=== PATIENT | male | born 1940 | race Caucasian/White ===

== ENCOUNTER 2020-07-11 07:37 | Outpatient (REF) | payer MEDICARE, SELFPAY ==
[2020-07-11 09:19] LABS: Alanine Aminotransferase 31 U/L (0-40); Albumin Level 4.2 g/dL (3.5-5.0); Alkaline Phosphatase 56 U/L (39-117); Aspartate Amino Transferase 21 U/L (5-37); Bilirubin Direct 0.3 mg/dL (0.0-0.5); Bilirubin Total 0.8 mg/dL (0.0-1.0); Cholesterol 125 mg/dL; Glucose Fasting 142 mg/dL (60-99); HDL Cholesterol 47 mg/dL; LDL Cholesterol Calculated 56 mg/dl; Total Protein 7.2 g/dL (6.5-8.0); Triglycerides 110 mg/dL
[2020-07-11 09:28] LABS: Estimated Average Glucose 140 mg/dL; Hemoglobin A1c % 6.5 %
[2020-07-11 09:36] LABS: Reflex LDLD? No
== END 2020-07-11 07:38 | disposition home or self-care (01) ==
LOC: HO.LAB 07:37
PROVIDERS: Visit Provider Internal Medicine
DX: E78.00 Pure hypercholesterolemia, unspecified (principal); E11.9 Type 2 diabetes mellitus without complications
CPT/HCPCS: 36415; 80061; 80076; 82947; 83036

== ENCOUNTER 2021-01-16 10:32 | Outpatient (REF) | payer MEDICARE, SELFPAY ==
[2021-01-16 10:50] LABS: Estimated Average Glucose 131 mg/dL; Hemoglobin A1c % 6.2 %
[2021-01-16 11:11] LABS: Alanine Aminotransferase 21 U/L (0-40); Albumin Level 4.1 g/dL (3.5-5.0); Alkaline Phosphatase 54 U/L (39-117); Aspartate Amino Transferase 18 U/L (5-37); Bilirubin Direct 0.4 mg/dL (0.0-0.5); Cholesterol 110 mg/dL; Glucose Fasting 122 mg/dL (60-99); HDL Cholesterol 41 mg/dL; LDL Cholesterol Calculated 50 mg/dl; Triglycerides 96 mg/dL
[2021-01-16 11:29] LABS: Reflex LDLD? No
== END 2021-01-16 10:33 | disposition home or self-care (01) ==
LOC: HO.LNP 10:32
PROVIDERS: Visit Provider Internal Medicine
DX: E78.00 Pure hypercholesterolemia, unspecified (principal); E11.9 Type 2 diabetes mellitus without complications
CPT/HCPCS: 80061; 80076; 82947; 83036

== ENCOUNTER 2021-01-20 12:20 | Outpatient (REF) | payer MEDICARE, SELFPAY ==
[2021-01-20 12:25] LABS: MANUAL DIFF FLAG NO
[2021-01-20 12:33] LABS: Basophils Percent Auto 0.4 % (0-2); Eosinophils Absolute Auto 0.2 X10*3/uL (0.0-0.4); Eosinophils Percent Auto 2.7 % (0-4); Hematocrit 44.4 % (42-52); Hemoglobin 14.9 g/dl (14.0-18.0); Imm Gran Abs Auto 0.01 X10*3/uL (0.00-0.03); Imm Gran Pct Auto 0.2 % (0.0-0.4); Lymphocytes Absolute Auto 2.2 X10*3/uL (1.2-4.9); Lymphocytes Percent Auto 38.5 % (20-40); Mean Corpuscular HGB Conc 33.6 g/dl (31.0-36.0); Mean Corpuscular Hemoglobin 31.8 pg (27.0-33.0); Mean Corpuscular Volume 94.7 fL (80-98); Mean Platelet Volume 12.7 fL (9.4-12.4); Monocytes Absolute Auto 0.6 X10*3/uL (0.1-1.2); Monocytes Percent Auto 10.1 % (2-11); Neutrophils Absolute Auto 2.7 X10*3/uL (2.0-8.3); Neutrophils Percent Auto 48.1 % (45-73); Platelet Count 196 X10*3/uL (160-400); Red Blood Count 4.69 X10*6/uL (4.60-5.80); Red Cell Distribution Width 12.5 % (11.0-16.0); White Blood Count 5.6 X10*3/uL (4.8-10.8)
[2021-01-20 12:54] LABS: Glucose Urine UA NEG (NEG); Leukocyte Esterase Urine NEG (NEG); Nitrite Urine NEG (NEG); PH 5.5 (5.0-8.0); Specific Gravity - Urine >= 1.030 (1.005-1.025); Urine Blood NEG (NEG); Urine Ketones 5 MG/DL (NEG); Urine Protein NEG (NEG-TRACE)
[2021-01-20 13:11] LABS: Appearance Urine CLEAR; Color Urine YELLOW
[2021-01-20 13:12] LABS: Alanine Aminotransferase 23 U/L (0-40); Albumin Level 4.2 g/dL (3.5-5.0); Alkaline Phosphatase 57 U/L (39-117); Anion Gap 14 (12-20); Aspartate Amino Transferase 20 U/L (5-37); Blood Urea Nitrogen 18 mg/dL (9-16); Calcium 9.6 mg/dL (8.4-10.2); Carbon Dioxide 26 mmol/L (22-29); Chloride 105 mmol/L (96-108); Cholesterol 110 mg/dL; Estimated Glomerular Filt Rate > 60; Glucose Fasting 166 mg/dL (60-99); HDL Cholesterol 43 mg/dL; LDL Cholesterol Calculated 50 mg/dl; Sodium 141 mmol/L (135-145); Total Protein 7.4 g/dL (6.5-8.0); Triglycerides 88 mg/dL
[2021-01-20 13:13] LABS: RBC Urine 0 /HPF (0); WBC Urine 0 /HPF (0-4)
[2021-01-20 13:58] LABS: PSA,Total (Free>4and<10) 0.89 ng/mL (0.00-4.00)
[2021-01-20 14:43] LABS: Reflex LDLD? No
== END 2021-01-20 12:21 | disposition home or self-care (01) ==
LOC: HO.LNP 12:20
PROVIDERS: Visit Provider Internal Medicine
DX: Z12.5 Encounter for screening for malignant neoplasm of prostate (principal); E11.9 Type 2 diabetes mellitus without complications; E78.00 Pure hypercholesterolemia, unspecified; M10.071 Idiopathic gout, right ankle and foot; N52.9 Male erectile dysfunction, unspecified; N40.0 Benign prostatic hyperplasia without lower urinary tract symptoms; C44.41 Basal cell carcinoma of skin of scalp and neck
CPT/HCPCS: 80053; 80061; 81001; 82043; 84153; 85025

== ENCOUNTER 2021-07-21 10:19 | Outpatient (REF) | payer MEDICARE, SELFPAY ==
[2021-07-21 10:43] LABS: Estimated Average Glucose 137 mg/dL; Hemoglobin A1c % 6.4 %
[2021-07-21 11:14] LABS: Alanine Aminotransferase 27 U/L (0-40); Albumin Level 4.2 g/dL (3.5-5.0); Alkaline Phosphatase 59 U/L (39-117); Aspartate Amino Transferase 20 U/L (5-37); Bilirubin Direct 0.3 mg/dL (0.0-0.5); Bilirubin Total 0.6 mg/dL (0.0-1.0); Cholesterol 110 mg/dL; HDL Cholesterol 41 mg/dL; LDL Cholesterol Calculated 51 mg/dl; Total Protein 7.4 g/dL (6.5-8.0); Triglycerides 90 mg/dL
[2021-07-21 11:24] LABS: Creatinine Urine 133.41 mg/dL; Microalbum/Creatinine Ratio Ur 6.7 ug/mg cr
[2021-07-21 11:53] LABS: Reflex LDLD? No
== END 2021-07-21 10:20 | disposition home or self-care (01) ==
LOC: HO.LNP 10:19
PROVIDERS: Visit Provider Internal Medicine
DX: E11.9 Type 2 diabetes mellitus without complications (principal); E78.00 Pure hypercholesterolemia, unspecified
CPT/HCPCS: 80061; 80076; 82043; 83036

== ENCOUNTER 2022-01-26 11:03 | Outpatient (REF) | payer MEDICARE, SELFPAY ==
[2022-01-26 11:06] LABS: MANUAL DIFF FLAG NO
[2022-01-26 11:15] LABS: Basophils Percent Auto 0.3 % (0-2); Eosinophils Absolute Auto 0.1 X10*3/uL (0.0-0.4); Eosinophils Percent Auto 1.5 % (0-4); Hematocrit 42.5 % (42.0-52.0); Hemoglobin 14.2 g/dl (14.0-18.0); Imm Gran Abs Auto 0.02 X10*3/uL (0.00-0.03); Imm Gran Pct Auto 0.3 % (0.0-0.4); Lymphocytes Absolute Auto 2.9 X10*3/uL (1.2-4.9); Lymphocytes Percent Auto 39.5 % (20-40); Mean Corpuscular HGB Conc 33.4 g/dl (31.0-36.0); Mean Corpuscular Hemoglobin 31.8 pg (27.0-33.0); Mean Corpuscular Volume 95.1 fL (80.0-98.0); Mean Platelet Volume 11.6 fL (9.4-12.4); Monocytes Absolute Auto 0.8 X10*3/uL (0.1-1.2); Monocytes Percent Auto 11.3 % (2-11); Neutrophils Absolute Auto 3.5 x10*3/uL (2.0-8.3); Neutrophils Percent Auto 47.1 % (45-73); Platelet Count 219 X10*3/uL (160-400); Red Blood Count 4.47 X10*6/uL (4.60-5.80); Red Cell Distribution Width 12.8 % (11.0-16.0); White Blood Count 7.4 X10*3/uL (4.8-10.8)
[2022-01-26 11:24] LABS: Appearance Urine CLEAR; Color Urine YELLOW; Glucose Urine UA NEG (NEG); Leukocyte Esterase Urine NEG (NEG); Nitrite Urine NEG (NEG); PH 5.5 (5.0-8.0); Specific Gravity - Urine 1.025 (1.005-1.025); Urine Blood NEG (NEG); Urine Ketones NEG (NEG); Urine Protein NEG (NEG-TRACE)
[2022-01-26 11:27] LABS: Estimated Average Glucose 126 mg/dL
[2022-01-26 11:48] LABS: Creatinine Urine 134.56 mg/dL; Microalbum/Creatinine Ratio Ur 8.9 ug/mg cr
[2022-01-26 11:53] LABS: Alanine Aminotransferase 26 U/L (0-40); Albumin Level 3.9 g/dL (3.5-5.0); Alkaline Phosphatase 71 U/L (39-117); Anion Gap 15 (12-20); Aspartate Amino Transferase 23 U/L (5-37); Blood Urea Nitrogen 20 mg/dL (9-16); Calcium 9.3 mg/dL (8.4-10.2); Carbon Dioxide 25 mmol/L (22-29); Chloride 104 mmol/L (96-108); Cholesterol 97 mg/dL; Estimated Glomerular Filt Rate > 60; Glucose Fasting 115 mg/dL (60-99); HDL Cholesterol 35 mg/dL; LDL Cholesterol Calculated 45 mg/dl; Potassium 4.3 mmol/L (3.3-5.1); Sodium 140 mmol/L (135-145); Total Protein 7.2 g/dL (6.5-8.0); Triglycerides 88 mg/dL
[2022-01-26 12:42] LABS: Mucus Urine 2+ /LPF; RBC Urine 0 /HPF (0); WBC Urine 0 /HPF (0-4)
== END 2022-01-26 11:04 | disposition home or self-care (01) ==
LOC: HO.LNP 11:03
PROVIDERS: Visit Provider Internal Medicine
DX: Z12.5 Encounter for screening for malignant neoplasm of prostate (principal); E11.9 Type 2 diabetes mellitus without complications; E78.00 Pure hypercholesterolemia, unspecified; N40.0 Benign prostatic hyperplasia without lower urinary tract symptoms
CPT/HCPCS: 80053; 80061; 81001; 82043; 83036; 84153; 85025

== ENCOUNTER 2022-08-02 11:22 | Outpatient (REF) | payer MEDICARE, SELFPAY ==
[2022-08-02 12:01] LABS: Estimated Average Glucose 143 mg/dL; Hemoglobin A1c % 6.6 %
[2022-08-02 12:03] LABS: Alanine Aminotransferase 29 U/L (0-40); Albumin Level 4.1 g/dL (3.5-5.0); Alkaline Phosphatase 64 U/L (39-117); Aspartate Amino Transferase 20 U/L (5-37); Bilirubin Direct 0.3 mg/dL (0.0-0.5); Bilirubin Total 0.8 mg/dL (0.0-1.0); Cholesterol 117 mg/dL; Glucose Fasting 151 mg/dL (60-99); HDL Cholesterol 38 mg/dL; LDL Cholesterol Calculated 61 mg/dl; Total Protein 7.2 g/dL (6.5-8.0); Triglycerides 92 mg/dL
[2022-08-02 13:51] LABS: Reflex LDLD? No
== END 2022-08-02 11:23 | disposition home or self-care (01) ==
LOC: HO.LNP 11:22
PROVIDERS: Visit Provider Internal Medicine
DX: E78.00 Pure hypercholesterolemia, unspecified (principal); E11.9 Type 2 diabetes mellitus without complications
CPT/HCPCS: 80061; 80076; 82947; 83036

== ENCOUNTER 2023-01-31 10:50 | Outpatient (REF) | payer MEDICARE, SELFPAY ==
[2023-01-31 10:55] LABS: MANUAL DIFF FLAG NO
[2023-01-31 12:20] LABS: Basophils Percent Auto 0.5 % (0-2); Eosinophils Absolute Auto 0.1 X10*3/uL (0.0-0.4); Eosinophils Percent Auto 1.6 % (0-4); Hematocrit 44.2 % (42.0-52.0); Hemoglobin 14.8 g/dl (14.0-18.0); Imm Gran Abs Auto 0.02 X10*3/uL (0.00-0.03); Imm Gran Pct Auto 0.3 % (0.0-0.4); Lymphocytes Absolute Auto 2.8 X10*3/uL (1.2-4.9); Lymphocytes Percent Auto 36.8 % (20-40); Mean Corpuscular HGB Conc 33.5 g/dl (31.0-36.0); Mean Corpuscular Hemoglobin 31.7 pg (27.0-33.0); Mean Corpuscular Volume 94.6 fL (80.0-98.0); Mean Platelet Volume 12.6 fL (9.4-12.4); Monocytes Absolute Auto 0.9 X10*3/uL (0.1-1.2); Monocytes Percent Auto 11.1 % (2-11); Neutrophils Absolute Auto 3.8 x10*3/uL (2.0-8.3); Neutrophils Percent Auto 49.7 % (45-73); Platelet Count 188 X10*3/uL (160-400); Red Blood Count 4.67 X10*6/uL (4.60-5.80); Red Cell Distribution Width 12.9 % (11.0-16.0); White Blood Count 7.7 X10*3/uL (4.8-10.8)
[2023-01-31 13:30] LABS: Estimated Average Glucose 123 mg/dL; Hemoglobin A1c % 5.9 %
[2023-01-31 13:34] LABS: Alanine Aminotransferase 28 U/L (0-40); Alkaline Phosphatase 61 U/L (39-117); Anion Gap 15 (12-20); Appearance Urine Clear; Aspartate Amino Transferase 24 U/L (5-37); Bilirubin Total 0.8 mg/dL (0.0-1.0); Blood Urea Nitrogen 17 mg/dL (9-16); Calcium 9.6 mg/dL (8.4-10.2); Carbon Dioxide 23 mmol/L (22-29); Chloride 106 mmol/L (96-108); Cholesterol 101 mg/dL; Color Urine Yellow; Estimated Glomerular Filt Rate > 60; Glucose Fasting 109 mg/dL (60-99); Glucose Urine UA Negative (Negative); HDL Cholesterol 43 mg/dL; LDL Cholesterol Calculated 42 mg/dl; Leukocyte Esterase Urine Negative (Negative); Nitrite Urine Negative (Negative); PH 5.5 (5.0-9.0); Potassium 4.3 mmol/L (3.3-5.1); Sodium 140 mmol/L (135-145); Specific Gravity - Urine 1.015 (1.005-1.025); Total Protein 7.3 g/dL (6.5-8.0); Triglycerides 82 mg/dL; Urine Blood Negative (Negative); Urine Ketones Negative (Negative); Urine Protein Negative (Neg-Trace)
[2023-01-31 13:39] LABS: Bacteria Urine None Seen (None Seen); Hyaline Casts Urine 0-2 /LPF (0-2); RBC Urine 0-2 /HPF (0-2); Squamous Epithelial Cell Urine 0-2 /HPF (0-2); WBC Urine 0-5 /HPF (0-5)
[2023-01-31 13:48] LABS: PSA,Total (Free>4and<10) 0.96 ng/mL (0.00-4.00)
[2023-01-31 14:41] LABS: Creatinine Urine 80.76 mg/dL; Microalbum/Creatinine Ratio Ur 11.1 ug/mg cr
== END 2023-01-31 10:51 | disposition home or self-care (01) ==
LOC: HO.LNP 10:50
PROVIDERS: Visit Provider Internal Medicine
DX: Z12.5 Encounter for screening for malignant neoplasm of prostate (principal); N40.0 Benign prostatic hyperplasia without lower urinary tract symptoms; E11.9 Type 2 diabetes mellitus without complications; E78.00 Pure hypercholesterolemia, unspecified
CPT/HCPCS: 80053; 80061; 81001; 82043; 83036; 84153; 85025

== ENCOUNTER 2023-07-30 12:29 | Outpatient (REF) | payer MEDICARE, SELFPAY ==
[2023-07-30 12:55] LABS: Estimated Average Glucose 134 mg/dL; Hemoglobin A1c % 6.3 % (<6.0)
[2023-07-30 13:26] LABS: Alanine Aminotransferase 23 U/L (0-40); Alkaline Phosphatase 62 U/L (39-117); Aspartate Amino Transferase 19 U/L (5-37); Bilirubin Direct 0.3 mg/dL (0.0-0.5); Bilirubin Total 0.8 mg/dL (0.0-1.0); Cholesterol 107 mg/dL (<200); Glucose Fasting 140 mg/dL (60-99); HDL Cholesterol 42 mg/dL (>40); LDL Cholesterol Calculated 48 mg/dL (<100); Total Protein 7.5 g/dL (6.5-8.0); Triglycerides 86 mg/dL (<150)
[2023-07-30 15:32] LABS: Reflex LDLD? No
== END 2023-07-30 12:30 | disposition home or self-care (01) ==
LOC: HO.LNP 12:29
PROVIDERS: Visit Provider Internal Medicine
DX: E11.9 Type 2 diabetes mellitus without complications (principal); E78.00 Pure hypercholesterolemia, unspecified
CPT/HCPCS: 80061; 80076; 82947; 83036

== ENCOUNTER 2024-01-28 10:48 | Outpatient (AMB) | payer MEDICARE, SELFPAY ==
--- NOTE | 2024-01-28 10:55 | AM.OFFWIN_ITS ---
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 Foot ?bite or Gout Intake Note: pt is here for left foot bite or possible gout Patient Tobacco Use Status: Never used Tobacco Allergies No Known Allergies Allergy (Verified 01/28/24 10:55) Do you need a note to return to daycare/school/sports/work: Yes HPI HPI Comments History of Present Illness Details He presents with L foot pain Hx of gout in toe in past but this feels different 5pm last night + sharp pain to to ankle Doesn't hurt when he stands but after a minute or two it hurts No redness/fever/chills He said he can move foot and ankle without issue but pain comes randomly 0/10 currently Pain comes when resting and when moving; non-specific Denies trauma or injury Denies bite mims Took Ibuprofen this am which helped [facility] Social History Patient Tobacco Use Status: Never used Tobacco Review of Systems Const Denies chills and Denies fever(s) Musc Reports arthralgias (lateral L ankle pain intermittent), Denies joint swelling, Denies numbness, Denies stiffness and Denies tingling Skin/Breast Denies rash, Denies skin pain and Denies wounds Neuro Denies numbness, Denies tingling and Denies paresthesias Physical Exam Vital Signs: Last Vital Signs Temp 98.2 F 01/28/24 11:02 Pulse 72 01/28/24 11:02 BP 150/78 H 01/28/24 11:02 Pulse Ox 97 01/28/24 11:02 BMI result Body Mass Index 25.1 General: Non-toxic, NAD. Speaking full sentences. Skin: Warm dry throughout. L ankle and LLE without erythema, edema, ecchymosis. No FB on L plantar aspect foot. No lateral ankle edema. No calf edema or tenderness Respiratory: No respiratory distress or stridor Cardiac: RRR. DP pulse intact. MSK: No bony tenderness illicited upon palpation of LLE at medial or lateral epicondyle, metatarsal bones, digits on foot or plantar fascia. No pain with ROM L ankle or movment of didigts L foot. Full ROM extremities. Neurology: A/O. No aphasia or facial droop. Gait without abnormality Psych: Good mood and affect Assessment & Plan Assessment & Plan (1) Ankle pain: Code(s): M25.579 - Pain in unspecified ankle and joints of unspecified foot Qualifiers: Chronicity: acute Laterality: left Qualified Code(s): M25.572 - Pain in left ankle and joints of left foot Plan: Patient seen and evaluated. No erythena or joint edema No hx of trauma Xray L ankle for ? arthritis: i viewed xray but saw no abnormality Pt states symptoms consistent with gout which he has taken prednisone in the past Discussed prednisone use and s/s. He was given julian bandae and told to elevate ice Predniosne only if edema/erythema/persistent pain F/U with PCP next week No concern gout of septic joint at this time Patient gave verbal understanding and had no additional questions or concerns at time of discharge All questions answered Orders: Orders XR ankle LT min 3V Today M25.579 - Pain in unspecified ankle and joints of unspecified foot Medications: New prednisone Take at onset of pain. Take with food. Avoid ibuprofen/Motrin/alcohol when taking medicine 40 mg (2 x 20 mg) PO DAILY 8 tabs 0RF Coding Level of Care Code New Pt Level 3 (66199) Diagnoses Acute left ankle pain M25.572 Chronicity: acute Laterality: left
[2024-01-28 11:02] VITALS: BP 150/78; PULSE 72; TEMP 36.8; O2SAT 97; BMI 25.1
== END 2024-01-28 11:34 | disposition home or self-care (01) ==
PROVIDERS: PCP Internal Medicine; Visit Provider Physician Assistant
DX: M25.572 Pain in left ankle and joints of left foot (principal)
CPT/HCPCS: 99203

== ENCOUNTER 2024-01-28 11:09 | Outpatient (REF) | payer MEDICARE, SELFPAY ==
--- NOTE | ~2024-01-28 | XR_ITS ---
EXAMINATION: XR ANKLE, LEFT CLINICAL INFORMATION: Pain COMPARISON: None available. TECHNIQUE: AP, lateral, and mortise views of the left ankle. FINDINGS: Mortise intact. No fracture, dislocation or destructive process. Minimal chronic fragmentation about the medial malleolus. Vascular calcifications are present. XR/XR ankle LT min 3V IMPRESSION: No acute findings.
== END 2024-01-28 11:10 | disposition home or self-care (01) ==
LOC: HO.HMGCX 11:09
PROVIDERS: PCP Internal Medicine; Visit Provider Physician Assistant
DX: M25.572 Pain in left ankle and joints of left foot (principal)
CPT/HCPCS: 73610

== ENCOUNTER 2024-01-30 11:21 | Outpatient (REF) | payer MEDICARE, SELFPAY ==
[2024-01-30 11:28] LABS: MANUAL DIFF FLAG NO
[2024-01-30 12:03] LABS: Basophils Percent Auto 0.2 % (0-2); Hematocrit 41.9 % (42.0-52.0); Hemoglobin 14.6 g/dl (14.0-18.0); Imm Gran Abs Auto 0.06 X10*3/uL (0.00-0.03); Imm Gran Pct Auto 0.5 % (0.0-0.4); Lymphocytes Absolute Auto 2.1 X10*3/uL (1.2-4.9); Lymphocytes Percent Auto 16.1 % (20-40); Mean Corpuscular HGB Conc 34.8 g/dl (31.0-36.0); Mean Corpuscular Hemoglobin 32.7 pg (27.0-33.0); Mean Corpuscular Volume 93.9 fL (80.0-98.0); Mean Platelet Volume 12.7 fL (9.4-12.4); Monocytes Absolute Auto 0.9 X10*3/uL (0.1-1.2); Monocytes Percent Auto 6.9 % (2-11); Neutrophils Absolute Auto 9.8 x10*3/uL (2.0-8.3); Neutrophils Percent Auto 76.3 % (45-73); Platelet Count 204 X10*3/uL (160-400); Red Blood Count 4.46 X10*6/uL (4.60-5.80); White Blood Count 12.9 X10*3/uL (4.8-10.8)
[2024-01-30 12:19] LABS: Appearance Urine Clear; Color Urine Yellow; Glucose Urine UA >=1000 mg/dL (Negative); Leukocyte Esterase Urine Negative (Negative); Nitrite Urine Negative (Negative); PH 5.5 (5.0-9.0); Specific Gravity - Urine 1.025 (1.005-1.025); UMIC TRIGGER UACC YES; Urine Blood Negative (Negative); Urine Ketones Negative (Negative); Urine Protein Trace mg/dL (Neg-Trace)
[2024-01-30 12:21] LABS: Alanine Aminotransferase 23 U/L (0-40); Albumin Level 4.2 g/dL (3.5-5.0); Alkaline Phosphatase 77 U/L (39-117); Anion Gap 15 (12-20); Aspartate Amino Transferase 17 U/L (5-37); Bilirubin Total 0.5 mg/dL (0.0-1.0); Blood Urea Nitrogen 23 mg/dL (9-16); Calcium 10.3 mg/dL (8.4-10.2); Carbon Dioxide 21 mmol/L (22-29); Chloride 109 mmol/L (96-108); Cholesterol 117 mg/dL (<200); Estimated Average Glucose 134 mg/dL; Estimated Glomerular Filt Rate 58; Glucose Fasting 234 mg/dL (60-99); HDL Cholesterol 51 mg/dL (>40); Hemoglobin A1c % 6.3 % (<6.0); LDL Cholesterol Calculated 55 mg/dL (<100); Potassium 4.4 mmol/L (3.3-5.1); Sodium 141 mmol/L (135-145); Total Protein 7.5 g/dL (6.5-8.0); Triglycerides 59 mg/dL (<150)
[2024-01-30 12:26] LABS: Bacteria Urine None Seen (None Seen); Hyaline Casts Urine 0-2 /LPF (0-2); RBC Urine 0-2 /HPF (0-2); Squamous Epithelial Cell Urine 0-2 /HPF (0-2); WBC Urine 0-5 /HPF (0-5)
[2024-01-30 12:40] LABS: Creatinine Urine 142.97 mg/dL; Microalbum/Creatinine Ratio Ur 14.6 ug/mg cr (<30)
== END 2024-01-30 11:22 | disposition home or self-care (01) ==
LOC: HO.LNP 11:21
PROVIDERS: Visit Provider Internal Medicine
DX: E78.00 Pure hypercholesterolemia, unspecified (principal); E11.9 Type 2 diabetes mellitus without complications; Z12.5 Encounter for screening for malignant neoplasm of prostate
CPT/HCPCS: 80053; 80061; 81001; 82043; 82570; 83036; 84153; 85025

== ENCOUNTER 2024-03-23 10:42 | Outpatient (REF) | payer MEDICARE, SELFPAY ==
[2024-03-23 11:37] LABS: Blood Urea Nitrogen 17 mg/dL (9-16); Calcium 9.7 mg/dL (8.4-10.2); Estimated Glomerular Filt Rate 60
== END 2024-03-23 10:43 | disposition home or self-care (01) ==
LOC: HO.LNP 10:42
PROVIDERS: Visit Provider Internal Medicine
DX: R79.9 Abnormal finding of blood chemistry, unspecified (principal); E83.52 Hypercalcemia
CPT/HCPCS: 82310; 82565; 84520

== ENCOUNTER 2024-07-01 02:02 | Emergency (ER) | payer MEDICARE, SELFPAY ==
--- NOTE | ~2024-07-01 | XR_ITS ---
EXAMINATION: XR ABDOMEN KUB CLINICAL INDICATION: fecal impaction COMPARISON: None available. TECHNIQUE: AP view of the abdomen. FINDINGS: The bowel gas pattern is normal with no evidence of ileus or obstruction. Retained stool throughout the colon including the rectum with rectal expansion up to 6.7 cm. No unusual soft tissue calcifications are noted. The bones are unremarkable. XR/XR KUB IMPRESSION: 1. Nonobstructive bowel gas pattern. 2. Retained stool throughout the colon including the rectum with rectal expansion up to 6.7 cm. Electronically signed by: Tevin Hayden MD 07/01/2024 02:59 AM EST
[2024-07-01 02:08] VITALS: BP 149/63; PULSE 102; RESP 14; TEMP 36.4; O2SAT 97; BMI 24.7
--- NOTE | 2024-07-01 02:27 | ED_ITS ---
HPI - General Adult General Chief complaint: General Medical Stated complaint: ? bowel obstruction Time Seen by Provider: 07/01/24 02:27 Source: patient Mode of arrival: ambulatory Limitations: no limitations History of Present Illness ED Provider: HPI narrative: Patient's history of hemorrhoids been constipated for 2 days feels like stool stuck in the rectum no nausea no vomiting patient has tried senna without much relief no nausea no vomiting no abdominal distention Related Data Home Medications ?Medication ?Instructions ?Recorded ?Confirmed atorvastatin 20 mg tablet 20 mg PO DAILY 01/28/24 metformin 500 mg tablet 1,000 mg PO BID 01/28/24 Previous Rx's ?Medication ?Instructions ?Recorded prednisone 20 mg tablet 40 mg (2 x 20 mg) PO DAILY #8 tabs 01/28/24 polyethylene glycol 3350 17 17 g PO DAILY #510 grams 07/01/24 gram/dose oral powder (Miralax) Allergies Allergy/AdvReac Type Severity Reaction Status Date / Time No Known Allergies Allergy Verified 07/01/24 02:12 Review of Systems Review of Systems: Yes all other systems are reviewed and are negative [facility] Social History Social History Patient Tobacco Use Status: Never used Tobacco Advance Directives: No Do you have a plan to hurt others: No Plan Physical Exam ED Vital Signs: Vital Signs - 24 hr 07/01/24 02:08 Temperature 97.6 F Pulse Rate 102 H Respiratory Rate 14 Blood Pressure 149/63 H Pulse Oximetry 97 Oxygen Delivery Method Room Air BMI result Body Mass Index 24.7 Appearance: Alert. Oriented X3. No acute distress. Eyes: PERRLA, No Nystagmus ENT: Pharynx normal. Oral Mucosa moist Neck: Normal inspection. Neck supple. CVS: Normal heart rate and rhythm. Pulses normal. Respiratory: No respiratory distress. Equal air entry bilateral, no wheezing/rales/rhonchi Abdomen: Soft and nontender. Hemorrhoids nonbleeding, soft stool in the rectum Bowel sounds are present, no mass palpable, no CVA tenderness Skin: Skin warm and dry. Normal skin color. Normal skin turgor. Extremities: No lower extremity edema. No calf tenderness Neuro: Oriented X 3. No motor deficit. Medications Administered Discontinued Medications Generic Name Dose Route Start Last Admin Trade Name Freq PRN Reason Stop Dose Admin Lidocaine HCl 10 ml 12/25/24 03:03 07/01/24 03:07 Lidocaine Hcl 2 % Urojet 10 Ml Jel.Pf.Poonam TOPICAL 07/01/24 03:04 10 ml ONCE ONE Administration Magnesium Hydroxide 30 ml 07/01/24 03:22 07/01/24 03:32 Milk Of Magnesia 30 Ml Oral.Susp PO 07/01/24 03:23 30 ml ONCE ONE Administration Sodium Biphosphate/Sodium Phosphate 133 ml 07/01/24 03:22 07/01/24 03:32 Sodium Phosphate,[place]-Dibasic 133 Ml Enema [place] 07/01/24 03:23 133 ml ONCE ONE Administration Medical Decision Making Medical Decision Making MDM Narrative: Patient's constipation hemorrhoids after manual disimpaction and Fleet enema patient has had a bowel movement and feeling much better will discharge patient home on MiraLax Independent Interpretation I performed an independent interpretation of an: Plain X-Ray Radiology Impression Discussion of test interpretation with radiology: I have reviewed the radiologist's reading. Radiologist Impression: Gómez Pascual??83??M??1940 ? Allergy/Adv: No Known Allergies Close KUB X-Ray (Signed) Tevin Hayden - 07/01/24 Ankle X-Ray (Signed) Schuyler Coburn - 01/28/24 Launch?Image [place] [address] XRay Report Signed Patient: Gómez Pascual MR#: [id number] : 1940 Acct:[id number] Age/Sex: 83 / M ADM Date: 07/01/24 Loc: HO.ED Attending Dr: Ordering Physician: Juan M Cooley MD Date of Service: 07/01/24 Procedure(s): XR KUB Accession Number(s): [id number] cc: Edi Ly MD; Juan M Cooley MD~ EXAMINATION: XR ABDOMEN KUB CLINICAL INDICATION: fecal impaction COMPARISON: None available. TECHNIQUE: AP view of the abdomen. FINDINGS: The bowel gas pattern is normal with no evidence of ileus or obstruction. Retained stool throughout the colon including the rectum with rectal expansion up to 6.7 cm. No unusual soft tissue calcifications are noted. The bones are unremarkable. XR/XR KUB IMPRESSION: 1. Nonobstructive bowel gas pattern. 2. Retained stool throughout the colon including the rectum with rectal expansion up to 6.7 cm. Electronically signed by: Tevin Hayden MD 07/01/2024 02:59 AM EST Discharge Plan Discharge Clinical Impression: Constipation Patient Disposition: Home, Self-Care Instructions: Constipation (DC) Additional Instructions: Drink plenty of fluids MiraLax daily Follow with your PCP Prescriptions: New polyethylene glycol 3350 [Miralax] 17 gram/dose powder 17 g PO DAILY Qty: 510 0RF No Action atorvastatin 20 mg tablet 20 mg PO DAILY metformin 500 mg tablet 1,000 mg PO BID prednisone 20 mg tablet 40 mg PO DAILY Qty: 8 0RF Rx Instructions: Take at onset of pain. Take with food. Avoid ibuprofen/Motrin/alcohol when taking medicine Print Language: Maltese
[2024-07-01] MEDS: Lidocaine HCl 2 % Urojet 10 ML JEL.PF.APP TOPICAL (03:07)
[2024-07-01] MEDS: Milk of Magnesia 30 ML ORAL.SUSP PO (03:32)
[2024-07-01] MEDS: Sodium Phosphate,Mono-Dibasic 133 ML ENEMA PR (03:32)
[2024-07-01 04:06] VITALS: BP 157/92; PULSE 111; RESP 18; TEMP 36.8; O2SAT 94
[2024-07-01 04:11] VITALS: BP 157/92; PULSE 103; RESP 18; TEMP 36.8; O2SAT 94
== END 2024-07-01 04:12 | disposition home or self-care (01) ==
PROVIDERS: Emergency Provider Internal Medicine; PCP Internal Medicine
DX: K59.00 Constipation, unspecified (principal); Z79.899 Other long term (current) drug therapy
CPT/HCPCS: 74018; 99283

== ENCOUNTER 2024-08-21 10:09 | Outpatient (REF) | payer MEDICARE, SELFPAY ==
--- OUTSIDE RECORDS SUMMARY | 2024-08-21 11:02 | XMS_ITS ---
[facility] jeremy Paul Address [address] [place] [address] Care Team Providers Care Maintenance Technician 2Nd Shift Name Role Phone Malachi DELANEY, Edi Primary Care Provider Regino Sun Unavailable [phone] Allergies No Known Allergies REASON FOR VISIT Avila brown, Pcp- 08/31 Medications Medication SIG (Take, Route, Frequency, Duration) Notes Start Date End Date Status Baby Aspirin Active Sulfamethoxazole-TMP DS 800-160 MG Oral for 10 Not-Taking Keflex 500 500 MG 1 capsule Orally jerome ry 12 hrs for 10 days 01/30/2023 Not-Taking metFORMIN HCl 500 MG 1 tablet with a marcel l Orally twice a day Active Atorvastatin Calcium 20 MG Orally Active LamISIL AT 1 % 1 application to affected area Externally Twice a day to affected areas on feet for 30 days 11/07/2015 Not-Taking predniSONE 10 MG Oral for 12 N ot-Taking Cephalexin 500 MG 1 tablet Orally Twic e a day for 10 day(s) Not-Taking Social History Tobacco Use: Social History Observation Description Date Details (start date - stop date) Never Smoker NA - NA Tobacco Use/Smoking Question Answer Notes Are you a: nonsmoker Additional Findings: Tobacco Non-User Current no n-smoker Alcohol Screen Question Answer Notes Did you have a drink containing alcohol in the p ast year? No Points 0 Interpretation Negative Tobacco use other than smoking: Question Answer Notes Are you an other tobacco user? No Vital Signs Height 5 ft 10 in in 10/17/2023 Weight 180 lbs 10/17/2023 BMI 25.82 kg/m2 10/17/2023 Encounters Encounter Location Date Provider Diagnosis [facility] [address] [address] [place] [address] 10/17/2023 Regino Murphy Ingrowing nail L60.0 Assessments Encounter Date Diagnosis (ICD Code) Assessment Notes Treatment Notes Treatment Clinical Notes Section Notes 10/17/2023 Ingrowing nail (ICD-10 - L60.0) Plan Of Treatment Next Appt Details Follow Up: 2 Weeks, Reason: Procedure Notes * Category Sub-Category Detail Notes Matricectomy (OP NOTE) Consent The patie nt was brought to the examination room and placed on the table in a supine position. The pre/edi/postoperative course, risks, complications and alternatives were discussed, understood and accepted by the patient. No guarantees were given regarding the surgical outcome Procedure A digital prep with alcohol or betadine was performed. 3cc of 2% Xylocaine pl. local anesthetic was administered to the toe via digital block utilizing aseptic technique. A digital touriquet was applied. The affected toenail portion was undermined, incised and resected to the eponychium and matrix. It was noted to be significantly incurvated and hypertrophied. The nailbed and matrix were curetted and the nail groove, bed and matrix were cauterized with Phenol, 3 applications of 30 seconds each from a cotton tip applicator, no underling bone was identified. The surrounding skin was protected from the Phenol with Bacitracin ointment. The tourniquet was released and capillary fill time was intact to the digit. A sterile Bacitracin dressing was applied Disposition Disposition: The pat ient tolerated the procedure and anesthesia well and left in good condition, alert, oriented and stable in no acute distress. Local wound care instructions were dispensed. There were no complications and the prognosis is favorable Location Medial nail border, TA Progress Notes * Gómez PASCUAL MDOB:1940 (83 yo M)Acc No.[id number]:10/17/2023 Progress Note Patient:?Gómez Pascual Rubens Provider:?Regino Murphy DPM :1940???Age:83 Y???Sex:Male Garry e:10/17/2023 Address:[address] [place], [place] [id number] Pcp:Edi Ly MD Subjective: * Chief Complaints: * ???Avila nailp- 08/31 * ROS:?General/Constitutional:?Nausea?denies.?Vomiting?denies.?Hunger Thirst?denies.?Loss appetite?denies.?Chills?denies.?Fatigue?denies.?Fever?denies.?Night Sweats?denies.?Unexplained weight loss?denies.?Unexplained weight gain?denies.?HEENTM:?Dentures?denies.?Dizziness?denies.?Glasses/contacts?admits.?Retinopathy?de nies.?Blurred/double vision?denies.?TMJ?denies.?Discharge/drainage?denies.?Implants?denies.?Sore throat?denies.?Dental implants?denies.?Hard of hearing ?denies.?Difficulty chewing/swallowing/speaking?denies.?Nose bleeds?denies.?Sore mouth?denies.?Respiratory:?On Oxygen?denies.?Pneumonia/pleurisy?denies.?Bronchitis?denies.?Emphysema?denies.?C oughing?denies.?Cough blood?denies.?Shortness of breath?denies.?Wheezing?denies.?Cardiovascular:?Pacemaker?denies.?MVP?denies.?WPW?denies.?CHF?denies.?Heart attack?denies.?Septal defect?denies.?Rapid beat?denies.?Chest pain ?denies.?Atrial Fib.?denies.?Murmur/Palpitations?denies.?Gastrointestinal:?Hemorrhoids?denies.?Stomach/Abdominal pain?denies.?Dark blood stool?denies.?Irritable bowel ?denies.?Constipation?denies.?Diarrhea?denies.?Hematology:?Swelling?denies.?Clots?denies.?Varicose Veins?denies.?Bruising?denies.?Bleeding problem?denies.?Genitourinary:?Blood urine?denies.?Frequent/Painfu/urination/bladder control?denies.?Kidney stones?denies.?Infection (UTI)?denies.?Nephropathy?denies.?sex trans dis (STD)?denies.?Prostate?denies.?Musculoskeletal:?Hammertoes?denies.?Bunions?denies.?Back Pain?denies.?Muscle Cramps/ Resting?denies.?Muscle cramps / walking?denies.?Generalized aches and pains?admits.?Weakness?denies.?Integ.:?Cassidy?denies.?Scars?denies.?Corns/calluses?denies.?Ingrown nails?admits.?Painful nails?admits.?Open Sores?denies.?Rashes?denies.?Neurologic:?Difficulty sleeping?denies.?Brain disorder?denies.?Numbness?denies.?Balance trouble?denies.?Confusion?denies.?Fainting/blackouts?denies.?Tingling?denies.?Tr emors?denies.? * Medical History:? * Surgical History:?skin cance r surgery * Hospitalization/Major Diagno stic Procedure:?Denies Past Hospitalization * Family History:?Mother: dece ased.?Father: , diagnosed with Unspecified heart disease.?Spouse: alive, foot problems.? * Social History:?Tobacco Use:?Tobacco Use/Smoking?Are you a:?nonsmoker ?Additional Findings: Tobacco Non-User?Current non-smoker ?Tobacco use other than smoking?Are you an other tobacco user??No ???Drugs/Alcohol:?Drugs?Have you used drugs other than those for medical reasons in the past 12 months??No ?Alcohol Screen?Did you have a drink containing alcohol in the past year??No ?Points?0 ?Interpretation?Negative ???Miscellaneous:?Caffeine: yes, frequency:, 1-2 cups per day. ?Children: yes, 5. ?Exercise: yes, walking. ?Marital status: . ?Occupation: Retired-[employer]. * Medications:?TakingBaby Aspi rin metFORMIN HCl 500 MG Tablet 1 tablet with a meal Orally twice a dayAtorvastatin Calcium 20 MG Tablet Orally Taking Baby Aspirin Taking metFORMIN HCl 500 MG Tablet 1 tablet with a meal Orally twice a dayTaking Atorvastatin Calcium 20 MG Tablet Orally Not-Taking/PRNKeflex 500 500 MG Capsule 1 capsule Orally every 12 hrsCephalexin 500 MG Tablet 1 tablet Orally Twice a dayLamISIL AT 1 % Cream 1 application to affected area Externally Twice a day to affected areas on feetpredniSONE 10 MG Tablet Oral Sulfamethoxazole-TMP DS 800- 160 MG Tablet Oral Medication List reviewed and reconciled with the patientNot- Taking/PRN Keflex 500 500 MG Capsule 1 capsule Orally every 12 hrsNot-Taking/PRN Cephalexin 500 MG Tablet 1 tablet Orally Twice a dayNot-Taking/PRN LamISIL AT 1 % Cream 1 application to affected area Externally Twice a day to affected areas on feetNot-Taking/PRN predniSONE 10 MG Tablet Oral Not-Taking/PRN Sulfamethoxazole- TMP DS 800-160 MG Tablet Oral Medication List reviewed and reconciled with the patient * Allergies:?N.K.D.A.yes[Aller gies Verified] Objective: * Vitals:?Ht: 5 ft 10 in, Wt:1 80, BMI:25.82, Shoe size:10.5, BS: not taken. * ???Past Orders: ???Lab:HEMOGLOBIN A1C (GLYCO HEMOGLOBIN) (Order Date - 08/08/2023) (Collection Date - 08/08/2023) ? Value Reference Range ?TOTAL HEMOGLOBIN (HGBA1C) 5.5 * Examination: ???Ingrown Nail: ?INSPECTION:? .?Ophthalmology Referral: ?DIABETES EYE EXAM? Assessment: * Assessment: 1.?Ingrowing nail - L60.0 (P rimary)? Plan: * Treatment: * Procedures:?Matricectomy (OP NOTE):?Location?Medial nail border, TA.?Consent?The patient was brought to the examination room and placed on the table in a supine position. The pre/edi/postoperative course, risks, complications and alternatives were discussed, understood and accepted by the patient. No guarantees were given regarding the surgical outcome.?Procedure?A digital prep with alcohol or betadine was performed. 3cc of 2% Xylocaine pl. local anesthetic was administered to the toe via digital block utilizing aseptic technique. A digital touriquet was applied. The affected toenail portion was undermined, incised and resected to the eponychium and matrix. It was noted to be significantly incurvated and hypertrophied. The nailbed and matrix were curetted and the nail groove, bed and matrix were cauterized with Phenol, 3 applications of 30 seconds each from a cotton tip applicator, no underling bone was identified. The surrounding skin was protected from the Phenol with Bacitracin ointment. The tourniquet was released and capillary fill time was intact to the digit. A sterile Bacitracin dressing was applied .?Disposition?Disposition: The patient tolerated the procedure and anesthesia well and left in good condition, alert, oriented and stable in no acute distress. Local wound care instructions were dispensed. There were no complications and the prognosis is favorable.? * Procedure Codes:?32660 REMOV AL OF NAIL BED, Modifiers: TA A4550 STERILE TRAY * Follow Up:?2 Weeks * Images: * Sign off status: Completed true * Provider:?Regino Murphy DPM Date:? 024 Generated for Balwinder vaughn/Krystyna/eTransmitting on:?08/21/2024 11:01 AM EST History and Physical Notes * Examination Category Sub-Category Detail Notes Category Not es Ingrown Nail INSPECTION: Ophthalmology Referral DIABETES EYE EXAM Diabeti c Retinopathy Screening:: Yes Findings of Diabetic Eye Exam:: no retin opathy
--- OUTSIDE RECORDS SUMMARY | 2024-08-21 11:02 | XMS_ITS ---
Author Organization [facility] Julio jeremy Paul Address [address] [facility] [place] [address] Care Team Providers Care Electrical Test Engineer Name Role Phone Malachi DELANEY, Edi Primary Care Provider Regino Sun Unavailable [phone] Allergies No Known Allergies REASON FOR VISIT June [place]- 07/31 Medications Medication SIG (Take, Route, Frequency, Duration) Notes Start Date End Date Status Cephalexin 500 MG 1 tablet Orally Twic e a day for 10 day(s) Not-Taking Keflex 500 500 MG 1 capsule Orally jerome ry 12 hrs for 10 days 01/30/2023 Not-Taking Sulfamethoxazole-TMP DS 800-160 MG Oral for 10 Not-Taking predniSONE 10 MG Oral for 12 N ot-Taking LamISIL AT 1 % 1 application to affected area Externally Twice a day to affected areas on feet for 30 days 11/07/2015 Not-Taking metFORMIN HCl 500 MG 1 tablet with a marcel l Orally twice a day Active Baby Aspirin Active Atorvastatin Calcium 20 MG Orally Active Social History Tobacco Use: Social History Observation [...] Are you an other tobacco user? No Problems Problem Type SNOMED Code ICD Code Onset Dates Problem Status W/U Status Risk Notes Problem Chronic ulcer of foot (211833628) Non-pressure chronic ulcer of other part of left foot with fat layer exposed (L97.522) Active confirmed Vital Signs Height 5 ft 10 in in 11/04/2023 Weight 175 lbs 11/04/2023 BMI 25.11 kg/m2 11/04/2023 Procedures Procedure Date Ordered Date Performed Result Body Sit e 87565-UAITVOP SKIN/TISSUE 11/04/2023 N/A Encounters Encounter Location Date Provider Diagnosis [facility] [place] [address] [place] [address] 11/04/2023 ReginoBrooks Non-pressure chronic ulcer of other part of left foot with fat layer exposed L97.522 Assessments Encounter Date Diagnosis (ICD Code) Assessment Notes Treatment Notes Treatment Clinical Notes Section Notes 11/04/2023 Non-pressure chronic ulcer of other part of left foot with fat layer exposed (ICD-10 - L97.522) Plan Of Treatment Pending Test Test Name Order Date 91762-XJNDNQQ SKIN/TISSUE 11/04/2023 Next Appt Details Follow Up: prn, Reason: Procedure Notes * Category Sub-Category Detail Notes Debride skin and subQ Open wound Open wound selective debridement of devitalized soft tissue, fibrin, epidermis, dermis, thru skin and subcutaneous tissue, first 20 sq cm or less, using sterile sharp dissection. Pt. deferred anesthesia. Sterile antibiotic dressing applied, Wound Care, The patient was instructed on importance of proper wound care consisting of pressure reduction, maintainance of moist wound environment, and regular debridement of devitilized tissue, The patient is to cleanse the wound with warm soapy water/peroxide/saline or betadine BID based on product availability , The patient is to apply Antibiotic Oint. to the wound and cover with a DSD , The patient was instructed to change dressings according to orders or PRN saturation, leaks , The patient was instructed to monitor and report any signs or symptoms of infection or any untoward reactions (30929), Progress Notes * Gómez PASCUAL MDOB:1940 (83 yo M)Acc No.[id number]:11/04/2023 Progress Notes Patient:?Gómez Pascual Provider:?Regino Murphy DPM :1940???Age:83 Y???Sex:Male Garry e:11/04/2023 Address:[address] [id number] Pcp:Edi Ly MD Subjective: * Chief Complaints: * ???Open sorePcp- 07/31 * ROS:?General/Constitutional:?Nausea?denies.?Vomiting?denies.?Hunger Thirst?denies.?Loss appetite?denies.?Chills?denies.?Fatigue?denies.?Fever?denies.?Night Sweats?denies.?Unexplained weight loss?denies.?Unexplained [...] ?Exercise: yes, walking. ?Marital status: . ?Occupation: Retired-[employer]. * Medications:?TakingBaby Aspi rin metFORMIN HCl 500 [...] reviewed and reconciled with the patient * Allergies:?N.K.D.A.yes[Mario alexander Verified] Objective: * Vitals:?Ht: 5 ft 10 in, Wt:1 75, BMI:25.11, Shoe size:10.5, BS:129. * ???Past Orders: ???Lab:HEMOGLOBIN A1C (GLYCO HEMOGLOBIN) (Order Date - 08/08/2023) (Collection Date - 08/08/2023) ? Value Reference Range ?TOTAL HEMOGLOBIN (HGBA1C) 5.5 * Examination: ???Dermatologic: ?ULCER:? LOCATION--dorsum ta, SIZE, 8mm X 4mm X 2mm, BASE, fibro-granular, RIM, hyperkeratotic, UNDERMINING, mild, TRACKING, Sub Q with Fat layer exposed,NECROTIC TISSUE, loosely-adherent yellow slough, DRAINAGE, serous, moderate, MALODOR, absent, CALOR, absent, ERYTHEMA, mild, no pop.?Ophthalmology Referral: ?DIABETES EYE EXAM? Assessment: * Assessment: 1.?Non-pressure chronic ulce r of other part of left foot with fat layer exposed - L97.522 (Primary)? Plan: * Treatment: * Procedures:?Debride skin and subQ:?Open wound?Open wound selective debridement of devitalized soft tissue, fibrin, epidermis, dermis, thru skin and subcutaneous tissue, first 20 sq cm or less, using sterile sharp dissection. Pt. deferred anesthesia. Sterile antibiotic dressing applied, Wound Care, The patient was instructed on importance of proper wound care consisting of pressure reduction, maintainance of moist wound environment, and regular debridement of devitilized tissue, The patient is to cleanse the wound with warm soapy water/peroxide/saline or betadine BID based on product availability , The patient is to apply Antibiotic Oint. to the wound and cover with a DSD , The patient was instructed to change dressings according to orders or PRN saturation, leaks , The patient was instructed to monitor and report any signs or symptoms of infection or any untoward reactions (67273), .? * Procedure Codes:?69112 DEBRI DE SKIN/TISSUE, Modifiers: XS * Follow Up:?prn * Images: * Sign off status: Completed true * Provider:?Regino Murphy DPM Date:? 024 Generated for Balwinder vaughn/Krystyna/eTdevon on:?08/21/2024 11:01 AM EST History and Physical Notes * Examination Category Sub-Category Detail Notes Category Not es Dermatologic ULCER: LOCATION--dorsum ta, SIZE, 8mm X 4mm X 2mm, BASE, fibro-granular, RIM, hyperkeratotic, UNDERMINING, mild, TRACKING, Sub Q with Fat layer exposed,NECROTIC TISSUE, loosely-adherent yellow slough, DRAINAGE, serous, moderate, MALODOR, absent, CALOR, absent, ERYTHEMA, mild, no pop Ophthalmology Referral DIABETES EYE EXAM Diabeti c Retinopathy Screening:: Yes 11/01/23 Findings of Diabetic Eye Exam:: no retin opathy
--- OUTSIDE RECORDS SUMMARY | 2024-08-21 11:02 | XMS_ITS | Patient Health Record ---
Author Organization [facility] Julio jeremy Paul Address [address] [facility] [place] [address] Care Team Providers Care Services Host Name Role Phone Malachi DELANEY, Edi Primary Care Provider Regino Sun Unavailable [phone] Allergies No Known Allergies Reason For Referral No Information Medications Medication SIG (Take, Route, Frequency, Duration) Notes Start Date End Date Status Cephalexin 500 MG 1 tablet Orally Twic e a day for 10 day(s) Not-Taking metFORMIN HCl 500 MG 1 tablet with a marcel l Orally twice a day Active Baby Aspirin Active Keflex 500 500 MG 1 capsule Orally jerome ry 12 hrs for 10 days 01/30/2023 Not-Taking Atorvastatin Calcium 20 MG Orally Active Sulfamethoxazole-TMP DS 800-160 MG Oral for 10 Not-Taking predniSONE 10 MG Oral for 12 N ot-Taking LamISIL AT 1 % 1 application to affected area Externally Twice a day to affected areas on feet for 30 days 11/07/2015 Not-Taking Immunizations Vaccine Route Administration Date Status Comme nts Influenza Unknown 03/08/2023 Administered Social History Tobacco Use: Social History Observation [...] Problem Status W/U Status Risk Notes Problem Ingrowing nail (745704448) Ingrowing nail (L60.0) Active confirmed Problem Chronic ulcer of foot (568388795) Non-pressure chronic ulcer of other part of left foot with fat layer exposed (L97.522) Active confirmed Problem Polyneuropathy due to type 2 diabetes mellitus (798324879) Type 2 diabetes mellitus with diabetic polyneuropathy (E11.42) Active confirmed Problem Type II diabetes mellitus without complication (094334913) Type 2 diabetes mellitus without complications (E11.9) Active confirmed Vital Signs Height 5 ft 10 in in 11/04/2023 Weight 175 lbs 11/04/2023 BMI 25.11 kg/m2 11/04/2023 Procedures Procedure Date Ordered Date Performed Result Body Sit e 55995-ABLSNVS SKIN/TISSUE 11/04/2023 N/A Encounters Encounter Location Date Provider Diagnosis [facility] [address] [address] 10/17/2023 Regino Murphy Ingrowing nail L60.0 [facility] [address] [address] 11/04/2023 Regino Murphy Non-pressure chronic ulcer of other part of left foot with fat layer exposed L97.522 Assessments Encounter Date Diagnosis (ICD Code) Assessment Notes Treatment Notes Treatment Clinical Notes Section Notes 10/17/2023 Ingrowing nail (ICD-10 - L60.0) 11/04/2023 Non-pressure chronic ulcer of other part of left foot with fat layer exposed (ICD-10 - L97.522) Plan Of Treatment Pending Test Test Name Order Date 89787-Tsuoboal Plate 03/27/2017 45598-Rllngtxw Plate 05/08/2018 63089-Xhvbwtzs Plate 05/20/2018 59472-Qnikseeh Plate 11/07/2015 00281-SAT 08/26/2018 17606- Debride <25 sq cm 09/12/2018 38358- Debride <25 sq cm 03/27/2017 17350-LUBICAA SKIN/TISSUE 11/04/2023 36596 I&D ABSCESS- SIMPLE,SINGLE 017 Insurance Providers Payer Name Payer Address Payer Phone Subscriber Number Group Number Insured Name Patient Relationship to Insured Coverage Start Date Coverage End Date Medicare National [employer] [address] [facility] [place] [phone] [id number] Gómez Pascual Self - patient is the insured [facility] [address] [place] [address] [phone] [id number] Gómez Pascual Self - patient is the insured Medical (General) History Medical History History ICD Code Gout skin cancer Diabetes CAD covid-19 Measles Mumps Cataracts Surgical History Surgery Date(Month/Year) skin cancer surgery
[2024-08-21 11:21] LABS: Alanine Aminotransferase 25 U/L (0-40); Albumin Level 4.1 g/dL (3.5-5.0); Alkaline Phosphatase 58 U/L (39-117); Aspartate Amino Transferase 30 U/L (5-37); Bilirubin Direct 0.4 mg/dL (0.0-0.5); Bilirubin Total 0.9 mg/dL (0.0-1.0); Cholesterol 107 mg/dL (<200); HDL Cholesterol 40 mg/dL (>40); LDL Cholesterol Calculated 48 mg/dL (<100); Total Protein 7.7 g/dL (6.5-8.0); Triglycerides 96 mg/dL (<150)
[2024-08-21 11:50] LABS: Reflex LDLD? No
== END 2024-08-21 10:10 | disposition home or self-care (01) ==
LOC: HO.LNP 10:09
PROVIDERS: Visit Provider Internal Medicine
DX: E78.00 Pure hypercholesterolemia, unspecified (principal)
CPT/HCPCS: 80061; 80076

== ENCOUNTER → 2024-09-08 09:11 | Outpatient (REF) | payer MEDICARE, SELFPAY ==
--- OUTSIDE RECORDS SUMMARY | 2024-09-08 10:10 | XMS_ITS ---
Author Organization Edi Ly MD Address [address] [place] [phone] Care Team Providers Care Research Methods Instructor Name Role Phone Edi Ly Primary Care Provider REASON FOR VISIT STRESS TEST Encounters Encounter Location Date Provider Diagnosis Edi Ly MD [address] [facility] [address] [place] [phone] 08/27/2024 Edi Ly Plan Of Treatment Next Appt Details Provider Name:Edi noguera, 09/29/2024 11:00:00 AM, [address] [place] [address], [place] [address], [place], [place], [phone], Provider Name:Edi noguera, 02/01/2025 07:30:00 AM, [address] [place] [address], [address], [phone], Provider Name:Edi noguera, 02/15/2025 11:00:00 AM, [address] [place] [address], [address] [place], [phone], Progress Notes * PASCUALGómez BautistaDOB:[birth year] (84 yo M)Acc No.[id number]:08/27/2024 Patient:?Gómez PASCUAL :1940???Age:84 Y???Sex:Male Address:[address] [place] [address] * true * Date:? Generated for Balwinder vaughn/Krystyna/eTransmitting on:?09/08/2024 10:10 AM EST
--- OUTSIDE RECORDS SUMMARY | 2024-09-08 10:10 | XMS_ITS ---
Author Organization Edi Ly MD Address [address] [place] [phone] Care Team Providers Care Provisioning Analyst Name Role Phone Malachi Edi Primary Care Provider [phone] REASON FOR VISIT FASTING LIPIDS Encounters Encounter Location Date Provider Diagnosis Edi Ly MD [address] [place] [phone] 08/21/2024 Edi Ly Pure hypercholestero lemia E78.00 Assessments Encounter Date Diagnosis (ICD Code) Assessment Notes Treatment Notes Treatment Clinical Notes Section Notes 08/21/2024 Pure hypercholesterolemia (ICD-10 - E78.00) Plan Of Treatment Pending Test Test Name Order Date Liver Panel 08/21/2024 Lipid Panel with Reflex 08/21/2024 Next Appt Details Provider Name:Edi noguera, 09/29/2024 11:00:00 AM, [address], [address], [place], [place], [phone], Provider Name:Edi noguera, 02/01/2025 07:30:00 AM, [address], [address], [place], [phone], Provider Name:Edi Velásquez ier, 02/15/2025 11:00:00 AM, [address], [address], [place], [phone], Progress Notes * Gómez PASCUALDOB:[birth year] (84 yo M)Acc No.[id number]:08/21/2024 Progress Note Patient:?Gómez PASCUAL Provider:?Edi Ly MD :1940???Age:84 Y???Sex:Male Garry e:08/21/2024 Address:[address] [place], [place] [phone] Subjective: * Chief Complaints: * ???1. FASTING LIPIDS. * Medical History:? Objective: * Vitals:? Assessment: * Assessment: 1.?Pure hypercholesterolemia - E78.00 (Primary)??? Plan: * Treatment: * Procedure Codes:?69164 VENIP UNCT, ROUTINE* * * The named appointment provid er may or may not be the originator of this progress note, and it is not deemed complete until electronically signed by the appointment provider. Sign off status: Pending * Provider:?Edi Ly MD Date:?0 08/21/2024 Generated for Balwinder vaughn/Krystyna/Umasmitting on:?09/08/2024 10:09 AM EST
--- OUTSIDE RECORDS SUMMARY | 2024-09-08 10:10 | XMS_ITS ---
Author Organization Edi Ly MD Address [address] [place], [place] [phone] Care Team Providers Care Cask Maker Name Role Phone Rahulaníbal Edi Primary Care Provider [phone] Allergies Allergen (clinical drug ingredient) Drug/Non Drug Allergy documented on EMR Reaction Allergy Type Onset Date Status sulfamethoxazole / trimethoprim Bactrim DS most likely rash from this one Drug Allergy Active Results Component Value Reference Range Notes Hemoglobin A1c Reviewed date:08/27/2024 09:05:08 AM Interpretation: Performing Lab: Notes/Report: Hemoglobin A1c 6.7 Glucose, finger stick Reviewed date:08/27/2024 08:58:03 AM Interpretation: Performing Lab: Notes/Report: Value 136 REASON FOR VISIT 6 MO F/U, c/o SOB x 1 year Medications Medication SIG (Take, Route, Frequency, Duration) Notes Start Date End Date Status Indomethacin 50 MG 1 capsule with food or milk Orally Three times a day for 10 days 01/24/2017 Not-Taking Virtussin A/C 100-10 MG/5ML 5 ml orally once a day for 90 days 02/01/2022 Not-Taking Colchicine 0.6 MG 1 tablet Orally twic e a day for 30 day(s) 12/14/2016 Not-Taking Atorvastatin Calcium 20 MG TAKE 1 TABLET BY MOUTH EVERY DAY FOR 90 DAYS Active Tylenol 325 MG 1 tablet as needed Orally every 4 hrs Not-Taking metFORMIN HCl 500 MG TAKE 2 TABLETS BY M OUTH TWICE A DAY WITH MEALS ORALLY ONCE A DAY 90 DAYS Active Aspir-81 81 MG 1 tablet Orally Once a day for 30 day(s) 06/13/2017 Active Ibuprofen 800 MG 1 tablet Orally Thre e times a day for 30 day(s) 05/09/2015 Active Vital Signs Blood pressure systolic 132 mm Hg 08/27/19 25 Blood pressure diastolic 60 mm Hg 025 Height 69 in 08/27/2024 Weight 177 lbs 08/27/2024 BMI 26.14 kg/m2 08/27/2024 weight is up 7 pounds since 02-21-24 Procedures Procedure Date Ordered Date Performed Result Body Sit e CARDIOVASCULAR STRESS TEST 08/27/2024 N/A Encounters Encounter Location Date Provider Diagnosis Edi Ly MD [address] [place] [address] [place] [phone] 08/27/2024 Edi Ly Type 2 diabetes brunilda itus without complication, without long-term current use of insulin E11.9 ; Shortness of breath on exertion R06.02 and Pure hypercholesterolemia E78.00 Assessments Encounter Date Diagnosis (ICD Code) Assessment Notes Treatment Notes Treatment Clinical Notes Section Notes 08/27/2024 Type 2 diabetes mellitus without complication, without long-term current use of insulin (ICD-10 - E11.9) doing well with good a1c, will continue current regiment 08/27/2024 Shortness of breath on exertion (ICD-10 - R06.02) THE ORDER HAS BEEN FAXED TO [facility]TRAL[facility] AND PATENT IS AWARE, pending additional testing 08/27/2024 Pure hypercholesterolemia (ICD-10 - E78.00) stable, will continue current regiment Plan Of Treatment Medication Medication Name Sig Start Date Stop Date Notes Atorvastatin Calcium 20 MG TAKE 1 TABLET BY MOUTH EVERY DAY FOR 90 DAYS metFORMIN HCl 500 MG TAKE 2 TABLETS BY M OUTH TWICE A DAY WITH MEALS ORALLY ONCE A DAY 90 DAYS Treatment Notes Assessment Notes Type 2 diabetes mellitus wit hout complication, without long-term current use of insulin doing well with good a1c, will continue current regiment Shortness of breath on exertion THE ORDE R HAS BEEN FAXED TO [facility] CENTRALIZED AND PATENT IS AWARE, pending additional testing Pure hypercholesterolemia stable, will c ontinue current regiment Pending Test Test Name Order Date CARDIOVASCULAR STRESS TEST 08/27/2024 Next Appt Details Follow Up: 4 Weeks, Reason: Provider Name:Edi Velásquez ier, 09/29/2024 11:00:00 AM, [address] [place] [address], [address], [place], [place], [phone], Provider Name:Edi Velásquez ier, 02/01/2025 07:30:00 AM, [address] [place] [address], Suite [facility], [place], [place], [phone], Provider Name:Edi Velásquez ier, 02/15/2025 11:00:00 AM, [address] [place] [address], Suite [facility], [place], [place], [phone], Progress Notes * Gómez PASCUALDOB:[birth year] (84 yo M)Acc No.[id number]:08/27/2024 Progress Notes Patient:?Gómez PSACUAL Provider:?Edi Ly MD :1940???Age:84 Y???Sex:Male Garry e:08/27/2024 Address:[address] [place], [place] [phone] Subjective: * Chief Complaints: * ???6 MO F/Uc/o SOB x 1 year * HPI: ???Symptom(s):?patient is a 84 yo male here for 6 month follow up visit,? getting short of breath for a the winter. shovels for 10 minutes and starts coughing up mucous. gets a burning sensation in substernal area. will get mucous and have to stop and cough. will get it with taking trash out. * ROS:?General/Constitutional:?Denies?Chills.?Denies?Fatigue.?Denies?Fever.?Denies?Headache.?ENT:?Patient denies?decreased sense of smell, any loss of taste, sore throat.?Denies?Sore throat.?Respiratory:?Denies?Cough.?Denies?Shortness of breath at rest.?Denies?Shortness of breath with exertion.?Gastrointestinal:?Denies?Diarrhea.?Denies?Nausea.?Musculoskeletal:?Patient denies?muscle aches.?Peripheral Vascular:?Patient denies?red and blue toes.? * Medical History:? * Surgical History:? * Hospitalization/Major Diagno stic Procedure:? * Medications:?TakingAspir-81 81 MG Tablet Delayed Release 1 tablet Orally Once a day Ibuprofen 800 MG Tablet 1 tablet Orally Three times a day metFORMIN HCl 500 MG Tablet TAKE 2 TABLETS BY MOUTH TWICE A DAY WITH MEALS ORALLY ONCE A DAY 90 DAYS Atorvastatin Calcium 20 MG Tablet TAKE 1 TABLET BY MOUTH EVERY DAY FOR 90 DAYS Taking Aspir- 81 81 MG Tablet Delayed Release 1 tablet Orally Once a day Taking Ibuprofen 800 MG Tablet 1 tablet Orally Three times a day Taking metFORMIN HCl 500 MG Tablet TAKE 2 TABLETS BY MOUTH TWICE A DAY WITH MEALS ORALLY ONCE A DAY 90 DAYS Taking Atorvastatin Calcium 20 MG Tablet TAKE 1 TABLET BY MOUTH EVERY DAY FOR 90 DAYS Not-Taking/PRNTylenol 325 MG Tablet 1 tablet as needed Orally every 4 hrs Virtussin A/C 100-10 MG/5ML Solution 5 ml orally once a day Indomethacin 50 MG Capsule 1 capsule with food or milk Orally Three times a day Colchicine 0.6 MG Tablet 1 tablet Orally twice a day Medication List reviewed and reconciled with the patientNot-Taking/PRN Tylenol 325 MG Tablet 1 tablet as needed Orally every 4 hrs Not-Taking/PRN Virtussin A/C 100-10 MG/5ML Solution 5 ml orally once a day Not-Taking/PRN Indomethacin 50 MG Capsule 1 capsule with food or milk Orally Three times a day Not-Taking/PRN Colchicine 0.6 MG Tablet 1 tablet Orally twice a day Medication List reviewed and reconciled with the patient * Allergies:?Gagan DS: most likely rash from this oneyes[Allergies Verified] Objective: * Vitals:?Ht: 69, Wt: 177, BMI :26.14, BP:132/60, Wt-k.29. weight is up 7 pounds since 02-21-24. * Examination: ???General Examination: ?GENERAL APPEARANCE:?alert, well hydrated, in no distress.?HEAD:?normocephalic.?SKIN:?good turgor.?HEART:?regular rate and rhythm, no murmurs, rubs, gallops.?LUNGS:?no wheezes, rales, rhonchi, good air movement, clear to auscultation bilaterally.? Assessment: * Assessment: 1.?Shortness of breath on ex ertion - R06.02 (Primary)???2.?Type 2 diabetes mellitus without complication, without long-term current use of insulin - E11.9???3.?Pure hypercholesterolemia - E78.00??? Plan: * Treatment: 2.?Type 2 diabetes mellitus without complication, without long-term current use of insulin? Continue metFORMIN HCl Tablet, 500 MG, TAKE 2 TABLETS BY MOUTH TWICE A DAY WITH MEALS ORALLY ONCE A DAY 90 DAYS.?LAB: Hemoglobin A1c (Collection Date & Time - 08/27/2024) ? Value Reference Range ?Hemoglobin A1c 6.7 ?LAB: Glucose, finger stick (Collection Date & Time - 08/27/2024)* ? Value Reference Range ?Value 136 Notes: doing well with good a1c, will continue current regiment??3.?Pure hypercholesterolemia? Continue Atorvastatin Calcium Tablet, 20 MG, TAKE 1 TABLET BY MOUTH EVERY DAY FOR 90 DAYS.? Notes: stable, will continue current regiment?? * Procedure Codes:?84200 ASSAY , GLUCOSE, BLOOD QUANT, Modifiers: QW 62751 GLYCATED HEMOGLOBIN TEST, Modifiers: QW * Follow Up:?4 Weeks * * Sign off status: Completed true * Provider:?Edi Ly MD Date:?0 08/27/2024 Generated for Balwinder vaughn/Krystyna/Marcoitting on:?09/08/2024 10:10 AM EST History and Physical Notes * HPI (History of Present Illness) Category Sub-Category Detail Notes Category Not es Symptom(s) patient is a 84 yo male here for 6 month follow up visit, getting short of breath for a the winter. shovels for 10 minutes and starts coughing up mucous. gets a burning sensation in substernal area. will get mucous and have to stop and cough. will get it with taking trash out. Examination Category Sub-Category Detail Notes Category Not es General Examination GENERAL APPEARANCE: alert, w ell hydrated, in no distress HEAD: normocephalic HEART: regular rate and rhy thm, no murmurs, rubs, gallops LUNGS: no wheezes, rales, r honchi, good air movement, clear to auscultation bilaterally SKIN: good turgor
== END ==
LOC: HO.CARD 09:11
PROVIDERS: PCP Internal Medicine; Visit Provider Internal Medicine
DX: Z13.89 Encounter for screening for other disorder (principal)

== ENCOUNTER 2024-09-11 08:18 | Outpatient (REF) | payer MEDICARE, SELFPAY ==
[2024-09-11 10:13] LABS: Prothrombin Time 11.7 SEC (10.9-12.4)
[2024-09-11 10:31] LABS: Hemoglobin 14.5 g/dl (14.0-18.0); Mean Corpuscular Hemoglobin 31.3 pg (27.0-33.0); Mean Corpuscular Volume 94.8 fL (80.0-98.0); Mean Platelet Volume 12.4 fL (9.4-12.4); Platelet Count 206 X10*3/uL (160-400); Red Blood Count 4.64 X10*6/uL (4.60-5.80); Red Cell Distribution Width 12.4 % (11.0-16.0); White Blood Count 8.4 X10*3/uL (4.8-10.8)
[2024-09-11 11:03] LABS: Anion Gap 11 (12-20); Blood Urea Nitrogen 25 mg/dL (9-16); Calcium 9.7 mg/dL (8.4-10.2); Carbon Dioxide 28 mmol/L (22-29); Chloride 109 mmol/L (96-108); Estimated Glomerular Filt Rate 55; Glucose Random 162 mg/dL (60-115); Potassium 5.3 mmol/L (3.3-5.1); Sodium 143 mmol/L (135-145)
== END 2024-09-11 08:19 | disposition home or self-care (01) ==
LOC: HO.LAB 08:18
PROVIDERS: PCP Internal Medicine; Visit Provider Internal Medicine Cardiovascular Disease
DX: I20.0 Unstable angina (principal)
CPT/HCPCS: 36415; 80048; 85027; 85610; 93005; 99202

== ENCOUNTER 2024-09-11 08:18 | Outpatient (AMB) | payer MEDICARE, SELFPAY ==
[2024-09-11 08:28] VITALS: BP 128/80; PULSE 70; BMI 25.0
--- NOTE | 2024-09-11 08:28 | A.OFFVIS_ITS ---
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 Patient was 84-year-old male with longstanding history of hypertension hyperlipidemia but generally very functional. Recent since recent snow storms he started noticing when he was shoveling snow within a minute he was start getting burning sensation in his chest and he would have to stop. Symptoms then would dissipate in few minutes and then go back at it again and he would get the symptoms again. Prior to that he was pretty functional and active and was not getting any symptoms the symptoms are pretty recent onset. Since then he has not been exercising much but doing stuff around the house but not at the same exertional level he was no symptoms of chest discomfort. He does not get any symptoms at rest. Has associated shortness of breath although has no other progressive shortness of breath. He says in the past couple years he has been noticing when he does over exertion he does get short of breath but thought this was related to aging. He has been on metoprolol therapy. He was recently referred for a stress test but because of his symptoms and EKG changes suggestive of ischemia in the inferior wall the stress test was canceled and he was referred here for further evaluation. He denies any strong palpitations fast heart rate irregular heartbeat, lightheadedness, syncope. No orthopnea, PND, leg edema. 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 Social History Patient Tobacco Use Status: Never used Tobacco Review of Systems Const Denies chills, Denies fatigue, Denies fever(s), Denies frequent falls, Denies weakness, Denies weight gain and Denies weight loss Eyes Denies loss of vision ENT Denies dizziness Card Reports chest pain, Denies leg edema, Denies lightheadedness, Denies palpitations, Denies dyspnea, Denies dyspnea on exertion, Denies orthopnea and Denies other (loss of consciousness) Resp Denies cough, Denies dyspnea, Denies dyspnea on exertion and Denies wheezing GI Denies hematochezia and Denies change in stool character Denies dysuria and Denies urinary frequency Musc Denies abnormal gait, Denies muscle weakness, Denies numbness, Denies radiating pain into limb and Denies tingling Skin/Breast Denies nail changes and Denies rash Neuro Denies abnormal gait, Denies dizziness, Denies frequent falls, Denies loss of vision, Denies memory loss, Denies numbness, Denies tingling and Denies weakness Psych Denies depression and Denies memory loss Endo Denies fatigue and Denies palpitations Phuc/Lymph Reports easy bruising and Reports other (anemia) Aller/Immun Denies wheezing Physical Exam Vital Signs: Last Vital Signs Pulse 70 09/11/24 08:28 BP 128/80 09/11/24 08:28 BMI result Body Mass Index 25.0 Const General: cooperative, comfortable, no acute distress, well developed, alert and awake Nutritional Appearance: average body habitus and well nourished Orientation/consciousness: patient oriented x3 Limitations: no limitations HEENT Head: Yes normocephalic and Yes atraumatic Neck Neck: Yes trachea midline, Yes supple and Yes no JVD Carotids: no bruits Resp Effort & Inspection: normal respiratory effort Auscultation: clear to auscultation bilaterally Cardio Jugular venous distension: no JVD Palpation: normal PMI Rate: regular rate Rhythm: regular rhythm Heart sounds: S1 normal heart sound present, S2 normal heart sound present, no click, no gallops, no murmurs and no rubs GI Auscultation: normal bowel sounds Skin General skin exam: no rashes or lesions noted Neuro General: patient oriented x3 and no focal motor deficits Extrem General: Yes no clubbing, cyanosis or edema Psych Appearance: grossly normal Office Procedures EKG Details: EKG shows normal sinus rhythm with T-wave changes in his ST depression inferior leads suggestive of ischemia with ST sagging in the V5 V6 as well 84655-Iylorlgcxsymtjjln, Complete Assessment & Plan Assessment & Plan (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 He does have EKG changes suggestive of ischemia. He is highly functional prior to these symptoms and has risk factors of hyperlipidemia and diabetes for many years. I think at this point time I would suggest that he should pursue cardiac catheterization as a mode of 1st test as investigation as as high likelihood of obstructive coronary artery disease with recent symptoms change in block morphology. This was discussed with him details. His and son were present at the visit. We discussed the risks, benefits, alternatives to the cardiac catheterization potential outcomes. They all understand and agree. Will pursue cardiac catheterization in the next week. Meanwhile I have advised him to avoid any exertion. Seek emergency care if he has unrelenting chest discomfort. He is currently on aspirin, metoprolol and other medications which should be continued. Further treatment based on the findings. Will obtain echocardiogram to evaluate for LV systolic and diastolic function regional wall motion abnormality. Cardiac catheterization with possible pote ntial PCI next week. Thank you for allowing me to partake in his care Medications: New aspirin 325 mg PO DAILY 30 tabs 0RF Coding Level of Care Code New Pt Level 4 (86796) Complex EM visit Add On G2211 Diagnoses Crescendo angina I20.0 CPT Codes EKG - CPT: 88673-Ltoyhwkfxjtgymgaj, Complete ([id number])
--- OUTSIDE RECORDS SUMMARY | 2024-09-11 08:41 | XMS_ITS ---
Author Organization Edi Ly MD Address [address] [place], [place] [phone] Care Team Providers Care Experimental Preflight Mechanic Name Role Phone Malachi Edi Primary Care Provider [phone] Allergies Allergen (clinical drug ingredient) Drug/Non Drug Allergy documented on EMR Reaction Allergy Type Onset Date Status Bactrim DS most likely rash from this one Drug Allergy Active REASON FOR VISIT discuss stress test, Has had a cough since Saturday Medications Medication SIG (Take, Route, Frequency, Duration) Notes Start Date End Date Status Virtussin A/C 100-10 MG/5ML 5 ml orally once a day for 90 days 02/01/2022 Not-Taking Indomethacin 50 MG 1 capsule with food or milk Orally Three times a day for 10 days 01/24/2017 Not-Taking Tylenol 325 MG 1 tablet as needed Orally every 4 hrs Not-Taking Colchicine 0.6 MG 1 tablet Orally twic e a day for 30 day(s) 12/14/2016 Not-Taking metFORMIN HCl 500 MG TAKE 2 TABLETS BY M OUTH TWICE A DAY WITH MEALS ORALLY ONCE A DAY 90 DAYS Active Metoprolol Succinate ER 50 MG 1 tablet Orally Once a day for 30 day(s) 09/08/2024 Active Aspir-81 81 MG 1 tablet Orally Once a day for 30 day(s) 06/13/2017 Active Ibuprofen 800 MG 1 tablet Orally Thre e times a day for 30 day(s) 05/09/2015 Active Atorvastatin Calcium 20 MG TAKE 1 TABLET BY MOUTH EVERY DAY FOR 90 DAYS Active Problems Problem Type SNOMED Code ICD Code Onset Dates Problem Status W/U Status Risk Notes Problem Multiple premature ventricular complexes (555468023) 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 Vital Signs Blood pressure systolic 158 mm Hg 09/09/19 25 Blood pressure diastolic 60 mm Hg 025 Height 69 in 09/08/2024 Weight 175 lbs 09/08/2024 BMI 25.84 kg/m2 09/08/2024 weight is down 2 pounds [facility] 08-27-24 Encounters Encounter Location Date Provider Diagnosis Edi Ly MD [address] [place] [phone] 09/08/2024 Edi Ly Abnormal ECG R94.31 and Frequent PVCs I49.3 Assessments Encounter Date Diagnosis (ICD Code) Assessment Notes Treatment Notes Treatment Clinical Notes Section Notes 09/08/2024 Abnormal ECG (ICD-10 - R94.31) 09/08/2024 Frequent PVCs (ICD-10 - I49.3) Plan Of Treatment Medication Medication Name Sig Start Date Stop Date Notes Metoprolol Succinate ER 50 MG 1 tablet O rally Once a day for 30 day(s) 09/08/2024 Next Appt Details Provider Name:Edi noguera, 09/29/2024 11:00:00 AM, [address] [place] [address], [address], [phone], Provider Name:Edi noguera, 02/01/2025 07:30:00 AM, [address] [place] [address], [address], [phone], Provider Name:Edi noguera, 02/15/2025 11:00:00 AM, [address] [place] [address], [phone], Progress Notes * Gómez PASCUALDOB:[birth year] (84 yo M)Acc No.[id number]:09/08/2024 Progress Notes Patient:?Gómez PASCUAL Provider:?Edi Ly MD :1940???Age:84 Y???Sex:Male Garry e:09/08/2024 Address:[address] [place] [address] Subjective: * Chief Complaints: * ???1. Discuss stress test. 2 . Has had a cough since Saturday. * HPI: ???Symptom(s):? had been getting burning sensation when shoveling snow.. went for stress test and ecg was abnormal and had frequent pvc. * ROS:?General/Constitutional:?Denies?Chills.?Denies?Fatigue.?Denies?Fever.?Admits?Headache.?ENT:?Denies?Sore throat.?Respiratory:?Admits?Cough.?Denies?Shortness of breath at rest.?Denies?Shortness of breath with exertion.?Admits?Sputum production.?Cardiovascular:?Denies?Chest pain at rest.?Denies?Chest pain with exertion.?Denies?Dizziness.?Denies?Palpitations.?Gastrointestinal:?Denies?Diarrhea.?Denies?Nausea.? * Medical History:?Colonoscopy 2001.due 2011, 07/23/2012 - Colonoscopy - no further testing needed per Dr. Lakhani, BPH (benign prostatic hyperplasia). * Medications:?Taking Aspir-81 81 MG Tablet Delayed Release 1 tablet Orally Once a day , Taking Ibuprofen 800 MG Tablet 1 tablet Orally Three times a day , Taking metFORMIN HCl 500 MG Tablet TAKE 2 TABLETS BY MOUTH TWICE A DAY WITH MEALS ORALLY ONCE A DAY 90 DAYS , Taking Atorvastatin Calcium 20 MG Tablet TAKE 1 TABLET BY MOUTH EVERY DAY FOR 90 DAYS , Not-Taking/PRN Tylenol 325 MG Tablet 1 tablet as needed Orally every 4 hrs , Not-Taking/PRN Virtussin A/C 100-10 MG/5ML Solution 5 ml orally once a day , Not-Taking/PRN Indomethacin 50 MG Capsule 1 capsule with food or milk Orally Three times a day , Not-Taking/PRN Colchicine 0.6 MG Tablet 1 tablet Orally twice a day * Allergies:?Bactrim DS: most likely rash from this one. Objective: * Vitals:?Ht: 69, Wt: 175, BMI :25.84, BP:158/60, Repeat BP:118/60, Wt-k.38. weight is down 2 pounds since 08-27-24. * Examination: ???General Examination: ?GENERAL APPEARANCE:?alert, well hydrated, in no distress.?SKIN:?good turgor.?HEART:?abnormal with frequent pvc's.?LUNGS:?clear to auscultation bilaterally, good air movement, no wheezes, rales, rhonchi.? Assessment: * Assessment: 1.?Abnormal ECG - R94.31 (Pr imary)???2.?Frequent PVCs - I49.3??? Plan: * Treatment: * * The named appointment provid er may or may not be the originator of this progress note, and it is not deemed complete until electronically signed by the appointment provider. Sign off status: Pending * Provider:?Edi Ly MD Date:?0 09/08/2024 Generated for Balwinder vaughn/Krystyna/Marcoitting on:?09/11/2024 08:41 AM EST History and Physical Notes * HPI (History of Present Illness) Category Sub-Category Detail Notes Category Not es Symptom(s) had been gettin g burning sensation when shoveling snow.. went for stress test and ecg was abnormal and had frequent pvc Examination Category Sub-Category Detail Notes Category Not es General Examination GENERAL APPEARANCE: alert, w ell hydrated, in no distress HEART: abnormal with freque nt pvc's LUNGS: clear to auscultatio n bilaterally, good air movement, no wheezes, rales, rhonchi SKIN: good turgor
--- OUTSIDE RECORDS SUMMARY | 2024-09-11 08:41 | XMS_ITS ---
Author Organization [facility] Julio jeremy Addison Address [address] [facility] [place] [address] Care Team Providers Care Excel Vba Developer Name Role Phone Malachi DELANEY, Edi Primary Care Provider Regino Sun Unavailable [phone] Allergies No Known Allergies REASON FOR VISIT [...] 10/17/2023 Encounters Encounter Location Date Provider Diagnosis [facility] [place] [address] [place] [address] 10/17/2023 Regino Murphy Ingrowing nail L60.0 Assessments [...] * Gómez PASCUAL MDOB:1940 (83 yo M)Acc No.[id number]:10/17/2023 Progress Note Patient:?Gómez Pascual Rubens Provider:?Regino Murphy DPM :1940???Age:83 Y???Sex:Male Garry e:10/17/2023 Address:[address] [place], [place] [address] Pcp:Edi Ly MD Subjective: * Chief Complaints: [...] ?Exercise: yes, walking. ?Marital status: . ?Occupation: Retired-[employer]. * Medications:?TakingBaby Aspi rin metFORMIN HCl 500 [...] ???Ingrown Nail: ?INSPECTION:? .?Ophthalmology Referral: ?DIABETES EYE EXAM?Diabetic Retinopathy Screening:?Yes ?Findings of Diabetic Eye Exam:?no retinopathy??? Assessment: * Assessment: 1.?Ingrowing nail - L60.0 [...] and the prognosis is favorable.? * Procedure Codes:?35191 REMOV AL OF NAIL BED, Modifiers: TA A4550 STERILE TRAY * Follow Up:?2 Weeks * Images: * Sign off status: Completed true * Provider:?Regino Murphy DPM Date:? 024 Generated for Balwinder vaughn/Krystyna/Janice on:?09/11/2024 08:41 AM EST History and Physical Notes * Examination Category Sub-Category Detail Notes Category Not es Ingrown Nail INSPECTION: Ophthalmology Referral DIABETES EYE EXAM Diabeti c Retinopathy Screening:: Yes Findings of Diabetic Eye Exam:: no retin opathy
--- OUTSIDE RECORDS SUMMARY | 2024-09-11 08:41 | XMS_ITS ---
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 Vital Signs Height 5 ft 10 in in 11/04/2023 Weight 175 lbs 11/04/2023 BMI 25.11 kg/m2 11/04/2023 Procedures Procedure Date Ordered Date Performed Result Body Sit e 36997-RPJNUJK SKIN/TISSUE 11/04/2023 N/A Encounters Encounter Location Date Provider Diagnosis [facility] [place] [address] [place] [address] 11/04/2023 ReginoBrooks Non-pressure chronic ulcer of other part of left foot with fat layer exposed L97.522 Assessments Encounter Date Diagnosis (ICD Code) Assessment Notes Treatment Notes Treatment Clinical Notes Section Notes 11/04/2023 Non-pressure chronic ulcer of other part of left foot with fat layer exposed (ICD-10 - L97.522) Plan Of Treatment Pending Test Test Name Order Date 93805-FYBDESB SKIN/TISSUE 11/04/2023 Next Appt Details Follow Up: [...] symptoms of infection or any untoward reactions (88510), Progress Notes * Gómez PASCUAL MDOB:1940 (83 yo M)Acc No.[id number]:11/04/2023 Progress Notes Patient:?Gómez Pascual Provider:?Regino Murphy DPM [...] ?Exercise: yes, walking. ?Marital status: . 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 * Medications:?TakingBaby Aspi rin metFORMIN HCl 500 [...] ERYTHEMA, mild, no pop.?Ophthalmology Referral: ?DIABETES EYE EXAM?Diabetic Retinopathy Screening:?Yes 11/01/23 ?Findings of Diabetic Eye Exam:?no retinopathy??? Assessment: * Assessment: 1.?Non-pressure chronic ulce r [...] symptoms of infection or any untoward reactions (52408), .? * Procedure Codes:?81604 DEBRI DE SKIN/TISSUE, Modifiers: XS * Follow Up:?prn * Images: * Sign off status: Completed true * Provider:?Regino Murphy DPM Date:? 024 Generated for Balwinder vaughn/Krystyna/eTransmitting on:?09/11/2024 08:41 AM EST History and Physical [...]
--- OUTSIDE RECORDS SUMMARY | 2024-09-11 08:42 | XMS_ITS ---
Author Organization Edi Ly MD Address [address] [place] [phone] Care Team Providers Care Candy Mixer Name Role Phone Edi Ly Primary Care Provider REASON FOR VISIT STRESS TEST Encounters Encounter Location Date Provider Diagnosis Edi Ly MD [address] [facility] [address] [place] [phone] 08/27/2024 Edi Ly Plan Of Treatment Next Appt Details Provider Name:Edi noguera, 09/29/2024 11:00:00 AM, [address] [place] [address], [place] [address], [place], [phone], Provider Name:Edi noguera, 02/01/2025 07:30:00 AM, [address] [place] [address], [address], [phone], Provider Name:Edi noguera, 02/15/2025 11:00:00 AM, [address] [place] [address], [address] [place], [phone], Progress Notes * PASCUALGómez BautistaDOB:[birth year] (84 yo M)Acc No.[id number]:08/27/2024 Patient:?Gómez PASCUAL :1940???Age:84 Y???Sex:Male Address:[address] [place] [address] * true * Date:? Generated for Balwinder vaughn/Krystyna/eTransmitting on:?09/11/2024 08:41 AM EST
--- OUTSIDE RECORDS SUMMARY | 2024-09-11 08:42 | XMS_ITS | Patient Health Record ---
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 Problem Polyneuropathy due to type 2 diabetes mellitus (701412832) Type 2 diabetes mellitus with diabetic polyneuropathy (E11.42) Active confirmed Problem Type II diabetes mellitus without complication (557042584) Type 2 diabetes mellitus without complications (E11.9) Active confirmed Vital Signs Height 5 ft 10 in in 11/04/2023 Weight 175 lbs 11/04/2023 BMI 25.11 kg/m2 11/04/2023 Procedures Procedure Date Ordered Date Performed Result Body Sit e 27707-MCRUXXB SKIN/TISSUE 11/04/2023 N/A Encounters Encounter Location Date Provider Diagnosis [facility] [address] [address] 10/17/2023 Regino Murphy Ingrowing nail L60.0 [facility] [address] [address] 11/04/2023 Regino Murphy Non-pressure chronic ulcer of [...] Treatment Pending Test Test Name Order Date 30938-Ctgbeulb Plate 03/27/2017 30282-Waukbgrm Plate 05/08/2018 27662-Vtajcyac Plate 05/20/2018 81791-Zhqhxemn Plate 11/07/2015 98547-CXT 08/26/2018 82939- Debride <25 sq cm 09/12/2018 15471- Debride <25 sq cm 03/27/2017 65480-MXOZNFD SKIN/TISSUE 11/04/2023 56358 I&D ABSCESS- SIMPLE,SINGLE 017 Insurance Providers Payer Name Payer Address Payer Phone Subscriber Number Group Number Insured Name Patient Relationship to Insured Coverage Start Date Coverage End Date Medicare National [employer] [address] [place] [id number] [phone] [id number] Gómez Pascual Self - patient is the insured [facility] [address] [place] [address] [id number] Gómez Pascual Self - patient is the insured Medical (General) History Medical History History ICD Code Gout skin cancer Diabetes CAD covid-19 Measles Mumps Cataracts Surgical History Surgery Date(Month/Year) skin cancer surgery
--- OUTSIDE RECORDS SUMMARY | 2024-09-11 08:42 | XMS_ITS ---
Author Organization Edi Ly MD Address [address] [place], [place] [phone] Care Team Providers Care Machine Skiver Name Role Phone Rahulaníbal Edi Primary Care Provider Allergies Allergen (clinical drug ingredient) Drug/Non Drug [...] Location Date Provider Diagnosis Edi Ly MD [address] [place] [address] [place] [phone] 08/27/2024 Edi Ly Type 2 diabetes brunilda [...] R06.02) THE ORDER HAS BEEN FAXED TO [facility] AND PATENT IS AWARE, pending additional [...] THE ORDE R HAS BEEN FAXED TO [facility] AND PATENT IS AWARE, pending additional testing Pure hypercholesterolemia stable, will c ontinue current regiment Pending Test Test Name Order Date CARDIOVASCULAR STRESS TEST 08/27/2024 Next Appt Details Follow Up: 4 Weeks, Reason: Provider Name:Edi Velásquez ier, 09/29/2024 11:00:00 AM, [address] [place] [address], [address], [place], [place], [phone], Provider Name:Edi Velásquez ier, 02/01/2025 07:30:00 AM, [address] [place] [address], [address] [facility], [place], [place], [phone], Provider Name:Edi Velásquez ier, 02/15/2025 11:00:00 AM, [address] [place] [address], [address], [place], [place], [phone], Progress Notes * Gómez PASCUALDOB:[birth year] (84 yo M)Acc No.[id number]:08/27/2024 Progress Notes Patient:?Gómez PASCUAL Provider:?Edi Ly MD :1940???Age:84 Y???Sex:Male Garry e:08/27/2024 Address:[address] [place], [place] [phone] Subjective: * Chief Complaints: * ???6 [place] [...] stable, will continue current regiment?? * Procedure Codes:?65314 ASSAY , GLUCOSE, BLOOD QUANT, Modifiers: QW 52467 GLYCATED HEMOGLOBIN TEST, Modifiers: QW * Follow Up:?4 Weeks * * Sign off status: Completed true * Provider:?Edi Ly MD Date:?0 08/27/2024 Generated for Balwinder vaughn/Krystyna/Marcoitting on:?09/11/2024 08:42 AM EST History and Physical Notes * [...]
== END 2024-09-11 09:25 | disposition home or self-care (01) ==
PROVIDERS: PCP Internal Medicine; Visit Provider Internal Medicine Cardiovascular Disease
DX: I20.0 Unstable angina (principal)
CPT/HCPCS: 93010; 99204; G2211

== ENCOUNTER → 2024-09-15 10:41 | Outpatient (REF) | payer MEDICARE, SELFPAY ==
--- NOTE | 2024-09-15 11:07 | CA_ITS ---
Transthoracic Echocardiogram Patient (Last, First, Middle): Gómez Pascual, Gender: Male Date of : 1940 Age: 84 Procedure Date: 09/15/2024 Procedure Type: Transthoracic Echocardiogram Location: OP Height: 177.8 cm Weight: 77.11 kg BSA: 1.95 m2 Heart Rate: bpm BP: 140 / 80 mmHg Clinical Trial Leader: TO Referring MD: Joao Caruso MD Symptoms: I20.0 - Unstable angina Study Quality: Fair/Contrast ECG Rhythm: Sinus Conclusions: - The left ventricular systolic function is moderately decreased. The calculated ejection fraction is 36% by biplane method. - The mid inferior, basal inferoseptal, and mid anteroseptal segments are akinetic. - The basal inferolateral segment is hypokinetic. - Aortic valve sclerosis but no significant stenosis. Findings Procedure Information Contrast agent, definity, is being given per protocol without apparent complications. Left Ventricle Mildly increased left ventricular cavity size. There is normal left ventricular wall thickness. The left ventricular systolic function is moderately decreased. The calculated ejection fraction is 36% by biplane method. There is evidence of regional wall motion abnormalities. Evidence suggests grade II (moderate) diastolic dysfunction. Wall Motion Rest Echo Findings The basal inferolateral segment is hypokinetic. The mid inferior, basal inferoseptal, and mid anteroseptal segments are akinetic. Right Ventricle Normal right ventricular cavity size and systolic function. Atria Both atria are normal in size. Aortic Valve There is a normal trileaflet aortic valve. There is moderate calcification of the aortic valve. There is trace (trivial) aortic valve regurgitation. No significant aortic stenosis. Mitral Valve There is mild mitral annular calcification. There is mild mitral valve regurgitation. There is no mitral valve stenosis. Pulmonic Valve The pulmonic valve is likely normal. There is trace pulmonic valve regurgitation. Tricuspid Valve There is trace tricuspid valve regurgitation. There is no evidence of pulmonary hypertension. Great Vessels The asc aorta is normal in size. Venous The inferior vena cava is normal in size and collapses less than 50% with inspiration. Pericardium/Pleural There is a trivial pericardial effusion. Prior Study Comparison No prior study available for comparison. Measurements 2D Linear Measurements IVSd: 0.89 0.6-0.9/0.6-1.0 cm LVIDd: 5.71 3.9-5.3/4.2-5.9 cm LVIDd Index: 2.93 2.4-3.2/2.2-3.1 cm/m2 LVIDs: 5.03 2.0-3.6 cm LVPWd: 0.66 0.7-1.1 cm LA Diam: 3.90 2.7-3.8/3.0-4.0 cm LAIDs Index: 2.00 1.5-2.3 cm/m2 LV Mass: 204.84 67-162/88-224 g LV Mass Index: 105.05 43-95/49-115 g/m2 LVOT Diam: 2.20 3.0+(-)1.3 cm 2D Systolic Function EF 4C: 39.70 >55% EF 2C: 35.20 >55% EF BiP: 36.40 >55% Mitral Valve MV VTI: 0.36 MV Pk Celio: 1.02 MV Mn Celio: 0.68 MV Pk Grad: 4.00 MV Mn Grad: 2.00 MV Pk E: 0.90 MV PK A: 0.78 MV Decel Time: 215.00 E/A: 1.20 E'Lateral: 4.79 E'Medial: 3.37 E/E' Med: 26.80 E/E' Lat: 18.90 PHT: 63.00 MVA PHT: 3.49 MVA Continuity: 1.67 Decel [place]: 4.20 Aortic Valve AoV Pk Celio: 1.54 AoV Mn Celio: 1.21 AoV VTI: 0.38 AoV Pk Grad: 9.00 Aov Mn Grad: 6.00 JESSICA Cont.VTI: 1.58 LVOT LVOT Pk Celio: 0.69 LVOT Mn Celio: 0.46 LVOT VTI: 0.16 LVOT Pk Grad: 2.00 LVOT Mn Grad: 1.00 LVOT Diam: 2.20 LVOT Area: 3.80 Diastolic Function MV Pk E: 0.90 MV Pk A: 0.78 E/A: 1.20 E'Medial: 3.37 E/E' Med: 26.80 E' Laterial: 4.79 E/E' Lat: 18.90 Right Ventricle TAPSE (mm): 20.00 TVS' Celio: 10.90 Tricuspid Valve TR Pk Celio: 2.48 TR Pk Grad: 25.00 RA Press: 8.00 RVSP: 33.00 Great Vessels Aorta Sinus of Valsalva: 3.38 2.0-3.[address] [place]: 2.71 1.7-3.4 cm Ao Asc: 3.40 2.1-3.4 cm Updated in Other Vendor System with Status of Final Erich Barker MD electronically signed on 09/16/2024 10:04:11 AM with status of Final
--- OUTSIDE RECORDS SUMMARY | 2024-09-15 12:49 | XMS_ITS ---
Author Organization [facility] Julio jeremy Paul Address [address] [facility] [place] [address] Care Team Providers Care Neighborhood Worker Name Role Phone Malachi DELANEY, Edi Primary Care Provider Regino Sun Unavailable [phone] Allergies No Known Allergies REASON FOR VISIT [...] 10/17/2023 Encounters Encounter Location Date Provider Diagnosis [facility] [place] [address] [place] [address] 10/17/2023 Regino Murphy Ingrowing nail L60.0 Assessments [...] * Gómez PASCUAL MDOB:1940 (83 yo M)Acc No.[id number]:10/17/2023 Progress Note Patient:?Gómez Pascual Rubens Provider:?Regino Murphy DPM :1940???Age:83 Y???Sex:Male Garry e:10/17/2023 Address:[address] [place], [place] [address] Pcp:Edi Ly MD Subjective: * Chief Complaints: [...] ?Exercise: yes, walking. ?Marital status: . ?Occupation: Retired-[employer]. * Medications:?TakingBaby Aspi rin metFORMIN HCl 500 [...] and the prognosis is favorable.? * Procedure Codes:?74700 REMOV AL OF NAIL BED, Modifiers: TA A4550 STERILE TRAY * Follow Up:?2 Weeks * Images: * Sign off status: Completed true * Provider:?Regino Murphy DPM Date:? 024 Generated for Balwinder vaughn/Krystyna/Janice on:?09/15/2024 12:49 PM EDT History and Physical Notes * Examination Category Sub-Category Detail Notes Category Not es Ingrown Nail INSPECTION: Ophthalmology Referral DIABETES EYE EXAM Diabeti c Retinopathy Screening:: Yes Findings of Diabetic Eye Exam:: no retin opathy
--- OUTSIDE RECORDS SUMMARY | 2024-09-15 12:49 | XMS_ITS ---
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 Vital Signs Blood pressure systolic 158 mm Hg 09/09/19 25 Blood pressure diastolic 60 mm Hg 025 Height 69 in 09/08/2024 Weight 175 lbs 09/08/2024 BMI 25.84 kg/m2 09/08/2024 weight is down 2 pounds [facility] e 08-27-24 Encounters Encounter Location Date Provider Diagnosis Edi Ly MD [address] [place] [address] [place] [phone] 09/08/2024 Edi Ly Abnormal ECG R94.31 and Frequent PVCs I49.3 Assessments Encounter Date Diagnosis (ICD Code) Assessment Notes Treatment Notes Treatment Clinical Notes Section Notes 09/08/2024 Abnormal ECG (ICD-10 - R94.31) reviewed findings of stress test with patient 09/08/2024 Frequent PVCs (ICD-10 - I49.3) patient verbalized understanding of medication ad directions for use Plan Of Treatment Medication Medication Name Sig Start Date Stop Date Notes Metoprolol Succinate ER 50 MG 1 tablet O rally Once a day for 30 day(s) 09/08/2024 Treatment Notes Assessment Notes Abnormal ECG reviewed findings of stress test with patient Frequent PVCs patient verbalized u nderstanding of medication ad directions for use Next Appt Details Provider Name:Edi noguera, 09/29/2024 11:00:00 AM, [address] [place] [address], [address] [facility], [place], [place], [phone], Provider Name:Edi noguera, 10/12/2024 07:45:00 AM, [address] [place] [address], [place] [address], [place], [place], [phone], Provider Name:Edi Velásquez ier, 02/01/2025 07:30:00 AM, [address], [address], [place], [phone], Provider Name:Edi Velásquez ier, 02/15/2025 11:00:00 AM, [address], [address], [place], [phone], Progress Notes * Gómez PASCUALDOB:[birth year] (84 yo M)Acc No.[id number]:09/08/2024 Progress Notes Patient:?Gómez PASCUAL Provider:?Edi Ly MD :1940???Age:84 Y???Sex:Male Garry e:09/08/2024 Address:[address] [place], [place] [phone] Subjective: * Chief Complaints: * ???1. Discuss stress test. 2 . Has had a cough since Saturday. * HPI: ???Symptom(s):?patient is a an 84 yo male here to discuss findings of recent stress test,? had been getting burning sensation when shoveling snow.. went for stress test and ecg was abnormal and had frequent pvc. * ROS:?General/Constitutional:?Denies?Chills.?Denies?Fatigue.?Denies?Fever.?Admits?Headache.?ENT:?Patient denies?decreased sense of smell, any loss of taste, sore throat.?Denies?Sore throat.?Respiratory:?Admits?Cough.?Denies?Shortness of breath at rest.?Denies?Shortness of breath with exertion.?Admits?Sputum production.?Cardiovascular:?Denies?Chest pain at rest.?Denies?Chest pain with exertion.?Denies?Dizziness.?Denies?Palpitations.?Gastrointestinal:?Denies?Diarrhea.?Denies?Nausea.?Musculoskeletal:?Patient denies?muscle aches.?Peripheral Vascular:?Patient denies?red and blue toes.? * Medical History:?Colonoscopy 2001.due 2011, 07/23/2012 - [...] imary)???2.?Frequent PVCs - I49.3??? Plan: * Treatment: 2.?Frequent PVCs? Start Metoprolol Succinate ER Tablet Extended Release 24 Hour, 50 MG, 1 tablet, Orally, Once a day, 30 day(s), 30.?? Notes: patient verbalized understanding of medication ad directions for use?? * * The named appointment provid er may or may not be the originator of this progress note, and it is not deemed complete until electronically signed by the appointment provider. Sign off status: Pending * Provider:?Edi Ly MD Date:?0 09/08/2024 Generated for Balwinder vaughn/Krystyna/Umasmitting on:?09/15/2024 12:49 PM EDT History and Physical Notes * HPI (History of Present Illness) Category Sub-Category Detail Notes Category Not es Symptom(s) patient is a an 84 yo male here to discuss findings of recent stress test, had been getting burning sensation when shoveling [...]
--- OUTSIDE RECORDS SUMMARY | 2024-09-15 12:50 | XMS_ITS ---
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 Vital Signs Height 5 ft 10 in in 11/04/2023 Weight 175 lbs 11/04/2023 BMI 25.11 kg/m2 11/04/2023 Procedures Procedure Date Ordered Date Performed Result Body Sit e 92457-IMHOJBG SKIN/TISSUE 11/04/2023 N/A Encounters Encounter Location Date Provider Diagnosis [facility] [place] [address] [place] [address] 11/04/2023 ReginoBrooks Non-pressure chronic ulcer of other part of left foot with fat layer exposed L97.522 Assessments Encounter Date Diagnosis (ICD Code) Assessment Notes Treatment Notes Treatment Clinical Notes Section Notes 11/04/2023 Non-pressure chronic ulcer of other part of left foot with fat layer exposed (ICD-10 - L97.522) Plan Of Treatment Pending Test Test Name Order Date 00654-ZJLALBR SKIN/TISSUE 11/04/2023 Next Appt Details Follow Up: [...] symptoms of infection or any untoward reactions (30640), Progress Notes * Gómez PASCUAL MDOB:1940 (83 yo M)Acc No.[id number]:11/04/2023 Progress Notes Patient:?Gómez Pascual Provider:?Regino Murphy DPM [...] ?Exercise: yes, walking. ?Marital status: . ?Occupation: Retired-[employer]. * Medications:?TakingBaby Aspi rin metFORMIN HCl 500 [...] symptoms of infection or any untoward reactions (68[address]), .? * Procedure Codes:?71085 DEBRI DE SKIN/TISSUE, Modifiers: XS * Follow Up:?prn * Images: * Sign off status: Completed true * Provider:?Regino Murphy DPM Date:? 024 Generated for Balwinder vaughn/Krystyna/eTransmitting on:?09/15/2024 12:49 PM EDT History and Physical [...]
--- OUTSIDE RECORDS SUMMARY | 2024-09-15 12:50 | XMS_ITS ---
Author Organization Edi Ly MD Address [address] [place] [phone] Care Team Providers Care Credentialing Specialist Name Role Phone Edi Ly Primary Care Provider REASON FOR VISIT STRESS TEST Encounters Encounter Location Date Provider Diagnosis Edi Ly MD [address] [place] [phone] 08/27/2024 Edi Ly Plan Of Treatment Next Appt Details Provider Name:Edi noguera, 09/29/2024 11:00:00 AM, [address] [place] [address], [place] [address], [place], [place], [phone], Provider Name:Edi noguera, 10/12/2024 07:45:00 AM, [address] [place] [address], [address], [phone], Provider Name:Edi noguera, 02/01/2025 07:30:00 AM, [address] [place] [address], [address] [place], [phone], Provider Name:Edidhaval noguera, 02/15/2025 11:00:00 AM, [address] [facility], [address], [place], [phone], Progress Notes * Gómez PASCUALDOB:[birth year] (84 yo M)Acc No.[id number]:08/27/2024 Patient:?Gómez PASCUAL :1940???Age:84 Y???Sex:Male Address:[address] [place] [address] * true * Date:? Generated for Balwinder vaughn/Krystyna/eTransmitting on:?09/15/2024 12:49 PM EDT
--- OUTSIDE RECORDS SUMMARY | 2024-09-15 12:50 | XMS_ITS | Patient Health Record ---
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 confirmed Problem Polyneuropathy due to type 2 diabetes mellitus (602326232) Type 2 diabetes mellitus with diabetic polyneuropathy (E11.42) Active confirmed Problem Type II diabetes mellitus without complication (120845854) Type 2 diabetes mellitus without complications (E11.9) Active confirmed Vital Signs Height 5 ft 10 in in 11/04/2023 Weight 175 lbs 11/04/2023 BMI 25.11 kg/m2 11/04/2023 Procedures Procedure Date Ordered Date Performed Result Body Sit e 36306-KSCUJZZ SKIN/TISSUE 11/04/2023 N/A Encounters Encounter Location Date Provider Diagnosis [facility] [address] [address] 10/17/2023 Regino Murphy Ingrowing nail L60.0 [facility] [address] [address] 11/04/2023 Regino Murphy Non-pressure chronic ulcer of [...] Treatment Pending Test Test Name Order Date 14448-Gqmyfktl Plate 03/27/2017 30797-Cqmnwvjk Plate 05/08/2018 21801-Zqwakibm Plate 05/20/2018 24168-Gwwwuovw Plate 11/07/2015 26518-TNV 08/26/2018 47203- Debride <25 sq cm 09/12/2018 15258- Debride <25 sq cm 03/27/2017 12330-HBXONAI SKIN/TISSUE 11/04/2023 58219 I&D ABSCESS- SIMPLE,SINGLE 017 Insurance Providers Payer Name Payer Address Payer Phone Subscriber Number Group Number Insured Name Patient Relationship to Insured Coverage Start Date Coverage End Date Medicare National Govt Sv[employer] [address] [facility] [place] [phone] [id number] Gómez Pascual Self - patient is the insured [facility] [address] [place] [address] [id number] Gómez Pascual Self - patient is the insured Medical (General) History Medical History History ICD Code Gout skin cancer Diabetes CAD covid-19 Measles Mumps Cataracts Surgical History Surgery Date(Month/Year) skin cancer surgery
--- OUTSIDE RECORDS SUMMARY | 2024-09-15 12:50 | XMS_ITS ---
Author Organization Edi Ly MD Address [address] [place], [place] [phone] Care Team Providers Care Welt Cutter Name Role Phone Rahulaníbal Edi Primary Care Provider [phone] Allergies Allergen (clinical drug ingredient) Drug/Non Drug [...] Location Date Provider Diagnosis Edi Ly MD [address] [place] [address] [place] [phone] 08/27/2024 Edi Ly Type 2 diabetes brunilda [...] R06.02) THE ORDER HAS BEEN [place] [facility] AND PATENT IS AWARE, pending additional [...] THE ORDE R HAS BEEN FAXED TO [facility] AND PATENT IS AWARE, pending additional testing Pure hypercholesterolemia stable, will c ontinue current regiment Pending Test Test Name Order Date CARDIOVASCULAR STRESS TEST 08/27/2024 Next Appt Details Follow Up: 4 Weeks, Reason: Provider Name:Edi Velásquez ier, 09/29/2024 11:00:00 AM, [address] [place] [address], Suite [facility], [place], [place], [phone], Provider Name:Edi Velásquez ier, 10/12/2024 07:45:00 AM, [address] [place] [address], Suite [facility], [place], [place], [phone], Provider Name:Edi Velásquez ier, 02/01/2025 07:30:00 AM, [address] [place] [address], [place] [address], [place], [place], [phone], Provider Name:Edi Velásquez ier, 02/15/2025 11:00:00 AM, [address] [place] [address], Suite [facility], [place], [place], [phone], Progress Notes * PASCUALGómezDOB:[birth year] (84 yo M)Acc No.[id number]:08/27/2024 Progress Notes Patient:?Gómez PASCUAL Provider:?Edi Ly MD :1940???Age:84 Y???Sex:Male Garry e:08/27/2024 Address:[address] [place], [place] [phone] Subjective: * Chief Complaints: * ???6 MO [...] reviewed and reconciled with the patient * Allergies:?Bactrim DS: most likely rash from this oneyes[Allergies [...] stable, will continue current regiment?? * Procedure Codes:?13851 ASSAY , GLUCOSE, BLOOD QUANT, Modifiers: QW 30580 GLYCATED HEMOGLOBIN TEST, Modifiers: QW * Follow Up:?4 Weeks * * Sign off status: Completed true * Provider:?Edi Ly MD Date:?0 08/27/2024 Generated for Purvii roderick/Krystyna/eTransmitting on:?09/15/2024 12:50 PM EDT History and Physical Notes * [...]
== END ==
LOC: HO.CARD 10:41
PROVIDERS: PCP Internal Medicine; Visit Provider Internal Medicine Cardiovascular Disease
DX: I20.0 Unstable angina (principal)
CPT/HCPCS: 93306; Q9957

== ENCOUNTER → 2024-09-15 11:07 | Outpatient (BNV) | payer MEDICARE, SELFPAY | PROVIDERS: PCP Internal Medicine; Visit Provider Internal Medicine | DX: I42.8 Other cardiomyopathies (principal); I35.8 Other nonrheumatic aortic valve disorders; I34.81 Nonrheumatic mitral (valve) annulus calcification | CPT/HCPCS: 93306 ==

== ENCOUNTER 2024-10-12 13:10 | Outpatient (REF) | payer MEDICARE, SELFPAY ==
[2024-10-12 13:26] LABS: Potassium 4.3 mmol/L (3.3-5.1)
--- OUTSIDE RECORDS SUMMARY | 2024-10-12 15:41 | XMS_ITS ---
[facility] Julio jeremy [place] Address [address] [facility] [place] [address] Care Team Providers Care Quality Assurance Supervisor Name Role Phone Malachi DELANEY, Edi Primary Care Provider Regino Sun Unavailable [phone] Allergies No Known Allergies REASON FOR VISIT [...] 10/17/2023 Encounters Encounter Location Date Provider Diagnosis [facility] [place] [address] [place] [address] 10/17/2023 Regino Murphy Ingrowing nail L60.0 Assessments [...] * Gómez PASCUAL MDOB:1940 (83 yo M)Acc No.[id number]:10/17/2023 Progress Note Patient:?Gómez Pascual Rubens Provider:?Regino Murphy DPM :1940???Age:83 Y???Sex:Male Garry e:10/17/2023 Address:[address] [place], [place] [address] Pcp:Edi Ly MD Subjective: * Chief Complaints: [...] ?Exercise: yes, walking. ?Marital status: . ?Occupation: Retired-[employer]. * Medications:?TakingBaby Aspi rin metFORMIN HCl 500 [...] and the prognosis is favorable.? * Procedure Codes:?46582 REMOV AL OF NAIL BED, Modifiers: TA A4550 STERILE TRAY * Follow Up:?2 Weeks * Images: * Sign off status: Completed true * Provider:?Regino Murphy DPM Date:? 024 Generated for Balwinder vaughn/Krystyna/Janice on:?10/12/2024 03:40 PM EDT History and Physical Notes * Examination Category Sub-Category Detail Notes Category Not es Ingrown Nail INSPECTION: Ophthalmology Referral DIABETES EYE EXAM Diabeti c Retinopathy Screening:: Yes Findings of Diabetic Eye Exam:: no retin opathy
--- OUTSIDE RECORDS SUMMARY | 2024-10-12 15:41 | XMS_ITS ---
Author Organization Edi Ly MD Address [address] [place] [phone] Care Team Providers Care Dock Operations Supervisor Name Role Phone MalachiNancyn Primary Care Provider Results Component Value Reference Range Notes Potassium (Not yet reviewed by provider) Interpretation: Performing Lab:[facility], [address] [place] [phone] Notes/Report: Potassium 4.3 3.3-5.1 mmol/L REASON FOR VISIT Potassium Encounters Encounter Location Date Provider Diagnosis Edi Ly MD [address] [place] [phone] 10/12/2024 Edi Ly Hyperkalemia E87.5 Assessments Encounter Date Diagnosis (ICD Code) Assessment Notes Treatment Notes Treatment Clinical Notes Section Notes 10/12/2024 Hyperkalemia (ICD-10 - E87.5) Plan Of Treatment Pending Test Test Name Order Date Potassium 10/12/2024 Next Appt Details Provider Name:Edi Velásquez ier, 11/12/2024 11:30:00 AM, [address], [address], [place], [phone], Provider Name:Edi Velásquez ier, 02/01/2025 07:30:00 AM, [address], [address], [place], [place], [phone], Provider Name:Edi Velásquez ier, 02/15/2025 11:00:00 AM, [address], [address], [place], [phone], Progress Notes * Gómez PASCUALDOB:[birth year] (84 yo M)Acc No.[id number]:10/12/2024 Progress Note Patient:?Gómez PASCUAL Provider:?Edi Ly MD :1940???Age:84 Y???Sex:Male Garry e:10/12/2024 Address:[address] [place], [place] [phone] Subjective: * Chief Complaints: * ???1. Potassium. * Medical History:? Objective: * Vitals:? Assessment: * Assessment: 1.?Hyperkalemia - E87.5 (Olga scott)??? Plan: * Treatment: * Procedure Codes:?76987 VENIP UNCT, ROUTINE* * * The named appointment provid er may or may not be the originator of this progress note, and it is not deemed complete until electronically signed by the appointment provider. Sign off status: Pending * Provider:?Edi Ly MD Date:?0 10/12/2024 Generated for Balwinder vaughn/Krystyna/eTransmitting on:?10/12/2024 03:41 PM EDT
--- OUTSIDE RECORDS SUMMARY | 2024-10-12 15:41 | XMS_ITS | Patient Health Record ---
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 Problem Polyneuropathy due to type 2 diabetes mellitus (577506268) Type 2 diabetes mellitus with diabetic polyneuropathy (E11.42) Active confirmed Problem Type II diabetes mellitus without complication (633492646) Type 2 diabetes mellitus without complications (E11.9) Active confirmed Vital Signs Height 5 ft 10 in in 11/04/2023 Weight 175 lbs 11/04/2023 BMI 25.11 kg/m2 11/04/2023 Procedures Procedure Date Ordered Date Performed Result Body Sit e 63130-VKRXZFN SKIN/TISSUE 11/04/2023 N/A Encounters Encounter Location Date Provider Diagnosis [facility] [address] [address] 10/17/2023 Regino Murphy Ingrowing nail L60.0 [facility] [address] [address] 11/04/2023 Regino Murphy Non-pressure chronic ulcer of [...] Treatment Pending Test Test Name Order Date 81807-Mdyknaxc Plate 11/07/2015 36498-Jrlcguxi Plate 03/27/2017 72499-Gedbmlsu Plate 05/20/2018 39715-Knsinrbl Plate 05/08/2018 21017-ICV 08/26/2018 65899- Debride <25 sq cm 09/12/2018 17074- Debride <25 sq cm 03/27/2017 48378-MVDXJUN SKIN/TISSUE 11/04/2023 61037 I&D ABSCESS- SIMPLE,SINGLE 017 Insurance Providers Payer Name Payer Address Payer Phone Subscriber Number Group Number Insured Name Patient Relationship to Insured Coverage Start Date Coverage End Date Medicare National Govt Svcs Inc [address] [place] [phone] [id number] Gómez Pascual Self - patient is the insured [facility] [address] [place] [address] [phone] [id number] Gómez Pascual Self - patient is the insured Medical (General) History Medical History History ICD Code Gout skin cancer Diabetes CAD covid-19 Measles Mumps Cataracts Surgical History Surgery Date(Month/Year) skin cancer surgery
--- OUTSIDE RECORDS SUMMARY | 2024-10-12 15:41 | XMS_ITS | Continuity of Care Document ---
Author Organization [facility] Meena felix Address [address] [place] [address] [place] [address]- Care Team Providers Care Global Position System Technician Name Role Phone Edi Ly MD Primary Care Physician [phone] Encounter [facility] Date(s): 10/01/24 - 10/08/24 [facility] Surgery [address] [place] [address] Drive [address] [place] [address]- Encounter Diagnosis S/P CABG x 2(Discharge Diagnosis) - 10/02/24 Attending Physician: Desire Villegas Referring Physician: Pedro Luis DELANEY, Lata Art Encounter Type: Office Visit Allergies, Adverse Reactions, Alerts No Known Allergies Immunizations Given and Recorded Vaccine Date Status Refusal Reason influenza virus vaccine, inactivated 03/23/24 Yaniv rded influenza virus vaccine, inactivated 04/01/23 Yaniv rded influenza virus vaccine, inactivated 04/10/22 Yaniv rded influenza virus vaccine, inactivated 04/03/21 Yaniv rded influenza virus vaccine, inactivated 03/10/20 Yaniv rded influenza virus vaccine, inactivated 04/14/19 Yaniv rded influenza virus vaccine, inactivated 04/17/18 Yaniv rded influenza virus vaccine, inactivated 04/16/17 Yaniv rded influenza virus vaccine, inactivated 05/28/16 Yaniv rded RSV vaccine preF3, recombinant 07/26/23 Recorded [id number] 12y+ bivalent booster vax 04/30/22 Recorded SARS-CoV-2 mRNA (smiyicw-eccx-eisnb) vax 10/18/21 Recorded SARS-CoV-2 (COVID-19) mRNA BNT-162b2 vac 04/13/21 Recorded SARS-CoV-2 (COVID-19) mRNA BNT-162b2 vac 08/28/20 Recorded SARS-CoV-2 (COVID-19) mRNA BNT-162b2 vac 08/08/20 Recorded pneumococcal 23-valent vaccine 01/06/19 Recorded pneumococcal 13-valent vaccine 05/28/16 Recorded Medications acetaminophen 325 mg oral tablet 975 mg, By Mouth, Every 6 hours, Refills 0, Maintenance, 09/25/24 12:15:00 PM EDT, Partial fill uponpatient request if the prescription is for a schedule II opioid drug. Start Date: 09/25/24 Status: Ordered Repeat number: 1 Aspirin Tablet 81 mg, By Mouth, Daily, Refills 0, Maintenance, 09/25/24 12:57:00 PM EDT, Partial fill upon patient request if the prescription is for a schedule II opioid drug. Start Date: 09/25/24 Status: Ordered Repeat number: 1 atorvastatin 20 mg oral tablet 1 tablet = 20 mg, By Mouth, Daily, 0 Refills, Maintenance, 09/18/24 11:34:00 AM EDT, Tablet, Partialfill upon patient request if the prescription is for a schedule II opioid drug. Start Date: 09/18/24 Status: Ordered Repeat number: 1 Metformin = 1,000 mg, By Mouth, 2 times a day, 0 Refills, Maintenance, 05/05/19 9:09:36 AM EDT Start Date: 05/05/19 Status: Ordered Repeat number: 1 metoprolol 25 mg oral tablet 25 mg, 1, tablet, By Mouth, 2 times a day, # 60 tablet, Refills 0, Tot. Refills 0, Maintenance, 09/25/24 12:14:00 PM EDT, Route to Pharmacy Electronically, [facility], Partial fill upon patient request if the prescription is for a schedule II opioid drug., 178, cm, 09/25/24 10:50:00 EDT, Height, 81.8, kg, 09/18/24 17:31:00 EDT, Dry Weight Start Date: 09/25/24 Stop Date: 10/25/24 Status: Ordered Quantity: 60.0 Unit: tablet Repeat number: 1 Vashe Topical Solution 475 mL, Topically, Every 12 hours, 0 Refills, Maintenance, Solution Start Date: 09/25/24 Status: Ordered Repeat number: 1 Problem List Condition Confirmation Course Effective Dates Status Health St atus Informant COVID-19 1 Confirmed 09/25/24 Active Diabetes Confirmed Active S/P CABG x 2 Confirmed Active Cancer of the skin, basal cell RIGHT NECK; 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, nose shoulder forehead Confirmed Active Abnormal serum cholesterol Confirmed Active 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 SCC (squamous cell carcinoma), NECK Confirmed 03/08/21 Active 1Problem added by Discern Expert Diagnosis Diagnosis Type Effective Dates Health Status Cl inical Service Informant S/P CABG x 2 Discharge Diagnosis 10/02/24 Vital Signs Most recent to oldest [Reference Range]: 1 Height 178 cm (10/01/24 3:40 PM) Weight 76.2 kg (10/01/24 3:40 PM) Oxygen Saturation [94-100 %] 97 % (10/01/24 3:40 PM) Pulse Rate [55-90 bpm] 85 bpm (10/01/24 3:40 PM) Body Mass Index [18.5-24.99 kg/m2] 24.05 kg/m2 (10/01/24 3:40 PM) Blood Pressure [90-138/55-84 mm Hg] 122/ 70mm Hg (10/01/24 3:40 PM) Respiratory Rate [16-30 br/min] 14 br/mi n *L* (10/01/24 3:40 PM) Temperature [96.8-100.4 DegF] 97 DegF (10/01/24 3:40 PM) Mode of Delivery (Oxygen) Room air (10/01/24 3:40 PM) Blood pressure sites Arm, right (10/01/24 3:40 PM) Temperature Route Oral (10/01/24 3:40 PM) Weight Obtained Via Standing scale (10/01/24 3:40 PM) Social History Social History Type Response Smoking Status Never (less than 100 in lifetime) entered on: 05/05/19 Sex Sex Representation Male (finding) Cardiac surgery Outpatient Note * Geovanna SOTO, Desire E: PERFORM, MODIFY Event Display: Cardiac Surgery Note Office Authored Date: [id number] Patient: ??EVIE PASCUAL ? Age:??84 Years?Sex:??Male?:??1940?? Chief Complaint Post op visit History of Present Illness PMI:??84 yo M with PMHX HTN, NIDM2, HLD, cutaneous melanoma status post surgical excision.?Presented with uneasiness in his retrosternal area that felt like reflux while shoveling snow, resolved with rest over the previous 3 weeks to the PCP.?EKG showed abnl ST depression and he was referred for Cardiac Cath.?Cath revealed MVD including 100% LAD, cardiothoracic surgery was consulted for CABG evaluation.??Pre op Covid swab and MSSA swabs positive.? OR: 09/21??CABG x 2?(CUENCA-mid LAD, SVG-OM)??by??Dr. Cloud ?? Post operative hospital course: No major issues. Stress hyperglycemia with A1C 7.0.?Discharged POD4 home with VNA services Welding Specialist: Dr. Caruso EF: 40% Discharge Date: 09/25 ?? Mr. Pascual presents to the office, with his and son, for a post op visit.?? He has had a rough couple of days home after discharge.?? He was having a terrible time eating, feeling nauseated and having a cough.?? The amiodarone was discontinued and he is slowly starting to feel better.?? His states he continues to have some bleeding at one of the chest tube sites.?? His applied pressure and it stopped but it has continued to ooze a few times now.?? It was brighter red at one point, but now is dark. The VNA is coming to the house, he has not gone in the shower yet, using vashe BID and wearing the compression socks.?? He can get to 1500 on the IS.?? His weight has decreased s camlia discharge, he was around 170# when he arrived home, he is 167.8# today and was around 177# prior to surgery.?? He denies any lightheadedness, dizziness or palpitations.?? He has a follow up withDr. Caruso on 10/29, the PCP on 10/13 and is scheduled for Cardiac Rehab on 4/21.?? Review of Systems Denies fever, chills, drainage from surgical sites, N/V, CP, SOB, palpitations, NGUYEN, dizziness or lightheadedness. All other systems reviewed and negative. Physical Exam Vitals & Measurements T:??97?F?? HR:??85??(Peripheral)?? RR:??14?? BP:??122/70?? SpO2:??97%?? HT:??178??cm?? WT:??76.2??kg?? BMI:??24.05?? General: NAD, WD, WN HEENT: NCAT, no scleral icterus, OP pink moist Lungs: CTAB, no wheezes, rales, rhonchi Heart: Reg irreg, No M/G/R Ext: +2 edema bilat. No clubbing/cyanosis or edema Neuro: AOx3, no unilateral deficits moves all extremities spontaneously Skin: warm, no rash ?? Wounds:?? Sternum: Stable, incision intact.?? Glue present, unable to remove.?? No scabs on CT/wiresites.?? Dark liquid present at right most and middle sites.?? LLE harvest site +glue, no erythema.? Silver nitrate stick taken to ct sites.?? covered with DSD.?? Assessment/Plan 1.??S/P CABG x 2 ??Recommend ASA,??BB and statin for CAD and graft patency.? Amiodarone started post-op for Afib prophylaxis.Discontinued d/t nausea.?? EKG today shows SR with frequent PVCs.?? No afib. ?? The following salient points were discussed during our visit ?? D/w with patient that after open chest surgery, it is common to start new medications and stop or adjust the doses of previous medications.?? Wound Care: Re-iterated with patients that??the sternum is reapproximated with stainless steel wires and can still shift until fully healed. * Continue to shower and let water run over surgical wounds.?? Use VASHE 2-3 times per day on incisions until bottle is empty * Recommend wearing compression stocking for the first month daily, remove at night.??Elevate legs (ankle higher than knees, knees higher than hip) to encourage fluid movement.?Wear compression stocking for any prolong periods of standing in the future. Wear compression socks until all scabs are off and incisions are healed.? After discharge from the hospital, the patient is usually given instructions about how to care for their chest and/or leg wounds. ?? Specifically, we discussed: Avoid heavy lifting and extremes of shoulder movement (eg, as in tennis, baseball, and golf) for six to eight weeks after surgery to allow for complete healing of the sternum. Prefer not to have patient laying completely on the side for 2 months. ?? No driving for 2-3 weeks, and no driving if taking narcotic medications. It is not unusual to have a poor appetite after undergoing surgery. Proper nutrition is important in promoting healing and getting strength back. Encourage 100 grams of protein daily for healing.? Continue to monitor weights on a daily basis, if gain 2-3# in one day and another 2-3# in the next consecutive day, call office or PCP. Elevate LE when possible.?? Cont to monitor chest tube sites.?? Apply pressure if start bleeding.?? Today dark ooze was old blood.? Follow up with cardiology and PCP as planned Start Cardiac Rehab ?? Rtc in??2 weeks for follow up.?? will call office for any other concerns and I offered him a visit next week if they wanted closer follow up.?? Total Time Spent I personally spent a total of??60 minutes, including both tyzt-lg-pvtc and ini-llas-nj-face time onthe date of the encounter, addressing the above diagnoses. 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 SCC (squamous cell carcinoma), NECK Procedure/Surgical History ???CABGx2 (CUENCA-mid LAD, SVG-OM) (09/21/2024)???Mohs micrographic surgery right neck (03/23/2021)???Mohs surgery right lower lip (12/12/2020)???Melanoma excised with graft???Mohs micrographic surgery???Plastic surgery/flap reconstruction Medications acetaminophen 325 mg oral tablet, 975 mg, By Mouth, Every 6 hours Aspirin Tablet, 81 mg, By Mouth, Daily atorvastatin 20 mg oral tablet, 20 mg= 1 tablet, By Mouth, Daily Metformin, 1000 mg, By Mouth, 2 times a day metoprolol 25 mg oral tablet, 25 mg= 1 tablet, By Mouth, 2 times a day Vashe Topical Solution, 475 mL, Topically, Every 12 hours Allergies NKA Social History Alcohol Use: Never. Exercise Self assessment: Good condition. Nutrition/Health Diet: Regular. Substance Abuse Use: Never. Tobacco Use: Never (less than 100 in lifetime). Note * Oksana Perez: PERFORM Event Display: Patient Education/Instruction Authored Date: [id number] Ambulatory Adult Visit Summary [facility] [address] [place] [address] Drive [address] [place] [address] Name: EVIE PASCUAL : 1940?? Visit: 10/01/2024 15:15?? Ambulatory Visit Instructions ?? Your Care Team Primary Care Provider Edi Ly MD? This Visit Provider Desire Villegas Vitals Signs Temperature: 97 DegF Height: 178 cm Pulse Rate: 85 bpm Weight: 76.2 kg Respiratory Rate:??14 br/min??Low Body Mass Index: 24.05 kg/m2 Systolic Blood Pressure: 122 mm Hg Body surface area: 1.94 Diastolic Blood Pressure: 70 mm Hg ?? Oxygen Saturation: 97 % ?? What to do next Scheduled Follow-Up Appointments 2024 10:45 AM EDT ?? With: Desire Villegas Where: [facility] Surgery [address] [place] [address] Drive [address] [place] [address]- Status: Pending Medications The list below reflects the information in our records and provided by you today along with any changes made during this visit. Please continue your medications until treatment is completed or stopped by your provider. If this is different from the information you have or there are other questions,please contact the prescribing provider. What How Much When Instructions Unchanged Acetaminophen (acetaminophen 325 mg oral tablet) 975 Milligram Oral Every 6 hours Unchanged Aspirin (Aspirin Tablet) 81 Milligram Oral Daily Unchanged Atorvastatin (atorvastatin 20 mg oral tablet) 1 tab(s) Oral Daily Unchanged Emollients, Topical (Vashe Topical Solution) 475 Milliliter Topically Every 12 hours Unchanged Metformin 1,000 Milligram Oral Twice a day Unchanged Metoprolol (metoprolol 25 mg oral tablet) 1 tab(s) Oral Twice a day Duration: 30 Days Medications and Immunizations Administered Medications Given During Visit No medications given during this visit.?? Allergies (NKA means No Known Allergies) NKA Common Emergency Awareness Tips IS IT A STROKE? Act FAST and Check for these signs: FACE Does the face look uneven? ARM Does one arm drift down? SPEECH Does their speech sound strange? TIME Call at any sign of stroke ?? Heart Attack Signs Chest discomfort: Most heart attacks involve discomfort in the center of the chest and lasts more than a few minutes, or goes away and comes back. It can feel like uncomfortable pressure, squeezing, fullness or pain. Discomfort in upper body: Symptoms can include pain or discomfort in one or both arms, back, neck, jaw or stomach. Shortness of breath: With or without discomfort. Other signs: Breaking out in a cold sweat, nausea, or lightheaded. Remember, MINUTES DO MATTER. If you experience any of these heart attack warning signs, call to get immediate medical attention! ?? Smoking can increase your chances of developing chronic health problems and can cause harmful effects to other family members in your house. If you smoke, you are strongly encouraged to quit. Please call [employer] [facility] at [phone] or 8-611-800Sprout Route (1190) or log in to [email or web address] for referrals to smoking cessation programs. ?? The National Suicide Prevention Hotline is available 28/01 if you or someone you know needs to find a reason to keep living. By calling 3-622-143-xoompark (0133) you'll be connected to a skilled, trained counselor at a crisis center in your area. [facility] Health Portal You can view and manage your care through the patient portal or by using a health care bertha of your choosing. [employer] is a website that allows you to securely view your medical information including your hospital discharge summary, office visit summaries, medications and follow-up visits. You can also request appointments, renew medications, and request access to your medical information using a health care bertha of your choosing, or just ask a question. You can enroll at [email or web address] or register during your next office visit. [facility], in keeping with [facility] guidance, no longer requires face masks for staff, patientsor visitors in most situations. Similiar to time spent indoors at other locations, there is the chance that you were exposed to repiratory viruses during your time with us (such as flu or COVID-19). If you develop symptoms concerning for a viral respiratory infection, please seek testing (and treatment if indicated) from your medical provider or home test kit. ?? Disclaimer: The information provided is of a general nature and is intended to be used in conjunction with the recommendations and advice of your health care practitioner. Every effort has been made to ensure that the information provided is accurate and complete at the time it is provided to you however, as your needs change, or, as new information becomes available, different or additional instructions may be required. ?? If you have questions, please consult with your primary care provider or pharmacist, as appropriate. This information is not intended to serve as substitution for assessment and evaluation by a qualified health care provider. If you do not have a primary care provider, you may find a [facility] provider by calling [facility] Link at [phone]. Patient Care team information Care Team Personnel Name: Edi Ly MD Position: Reference Physician Member Role: PCP Address: [address] [place] [address] Edi Ly MD [place], [place] [address] Telecom: [phone] Name: Susanne Rios RN Position: S RN Member Role: Primary Care Nurse Name: Annmarie Faria RN Position: S RN Member Role: Primary Care Nurse Name: Torsten Carr RN Position: S RN Member Role: Primary Care Nurse Name: Marquita Cyr RN Position: S RN Member Role: Primary Care Nurse Care Team Related Persons Name: STEPHON PASCUAL Insurance Providers Guarantor name: EVIE PASCUAL Health Plan Information #: 1 Payer: MEDICARE PART B OUTPT Member Number: [id number] Policy Number: NA Group Number: NA Health Plan Information #: 2 Payer: MEDEX Member Number: [id number] Policy Number: NA Group Number: NA
--- OUTSIDE RECORDS SUMMARY | 2024-10-12 15:41 | XMS_ITS ---
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 Vital Signs Height 5 ft 10 in in 11/04/2023 Weight 175 lbs 11/04/2023 BMI 25.11 kg/m2 11/04/2023 Procedures Procedure Date Ordered Date Performed Result Body Sit e 26011-WLMLHJY SKIN/TISSUE 11/04/2023 N/A Encounters Encounter Location Date Provider Diagnosis [facility] [address] [place] [address] 11/04/2023 ReginoBrooks Non-pressure chronic ulcer of other part of left foot with fat layer exposed L97.522 Assessments Encounter Date Diagnosis (ICD Code) Assessment Notes Treatment Notes Treatment Clinical Notes Section Notes 11/04/2023 Non-pressure chronic ulcer of other part of left foot with fat layer exposed (ICD-10 - L97.522) Plan Of Treatment Pending Test Test Name Order Date 99748-QXADOCV SKIN/TISSUE 11/04/2023 Next Appt Details Follow Up: [...] symptoms of infection or any untoward reactions (24915), Progress Notes * Gómez PASCUAL MDOB:1940 (83 yo M)Acc No.[id number]:11/04/2023 Progress Notes Patient:?Gómez Pascual Provider:?Regino Murphy DPM [...] ?Exercise: yes, walking. ?Marital status: . ?Occupation: Retired-[employer]. * Medications:?TakingBaby Aspi rin metFORMIN HCl 500 [...] symptoms of infection or any untoward reactions (48025), .? * Procedure Codes:?78712 DEBRI DE SKIN/TISSUE, Modifiers: XS * Follow Up:?prn * Images: * Sign off status: Completed true * Provider:?Regino Murphy DPM Date:? 024 Generated for Balwinder vaughn/Krystyna/eTransmitting on:?10/12/2024 03:40 PM EDT History and Physical [...]
--- OUTSIDE RECORDS SUMMARY | 2024-10-12 15:41 | XMS_ITS ---
Author Organization Edi Ly MD Address [address] [place] [phone] Care Team Providers Care Dog Daycare Provider Name Role Phone MalachiNancyn Primary Care Provider REASON FOR VISIT Discharge summary rec'd Encounters Encounter Location Date Provider Diagnosis Edi Ly MD [address] [facility] [address] [place] [phone] 10/01/2024 Edi Ly Plan Of Treatment Next Appt Details Provider Name:Edi noguera, 11/12/2024 11:30:00 AM, [address] [place] [address], Suite [facility], [place], [place], [phone], Provider Name:Edi noguera, 02/01/2025 07:30:00 AM, [address] [place] [address], Suite [facility], [place], [place], [phone], Provider Name:Edi noguera, 02/15/2025 11:00:00 AM, [address], [address], [place], [phone], Progress Notes * PASCUALGómez BautistaDOB:[birth year] (84 yo M)Acc No.[id number]:10/01/2024 Patient:?Gómez PASCUAL :1940???Age:84 Y???Sex:Male Address:[address] [place] [address] [place] [address] * true * Date:? Generated for Purvii roderick/Krystyna/eTransmitting on:?10/12/2024 03:40 PM EDT
--- OUTSIDE RECORDS SUMMARY | 2024-10-12 15:41 | XMS_ITS ---
Author Organization Edi Ly MD Address [address] [place], [place] [phone] Care Team Providers Care Cosmetician Apprentice Name Role Phone Malachi Edi Primary Care Provider Allergies Allergen (clinical drug ingredient) Drug/Non Drug Allergy documented on EMR Reaction Allergy Type Onset Date Status sulfamethoxazole / trimethoprim Bactrim DS most likely rash from this one Drug Allergy Active REASON FOR VISIT PH/TCM Medications Medication SIG (Take, Route, Frequency, Duration) Notes Start Date End Date Status Colchicine 0.6 MG 1 tablet Orally twic e a day for 30 day(s) 12/14/2016 Not-Taking Indomethacin 50 MG 1 capsule with food or milk Orally Three times a day for 10 days 01/24/2017 Not-Taking Virtussin A/C 100-10 MG/5ML 5 ml orally once a day for 90 days 02/01/2022 Not-Taking Tylenol 325 MG 1 tablet as needed Orally every 4 hrs Not-Taking metFORMIN HCl 500 MG TAKE 2 TABLETS BY M OUTH TWICE A DAY WITH MEALS ORALLY ONCE A DAY 90 DAYS for 90 Active Metoprolol Succinate ER 25 MG 1 tablet Orally bid for 30 days 09/08/2024 Active Atorvastatin Calcium 20 MG TAKE 1 TABLET BY MOUTH EVERY DAY FOR 90 DAYS Active Ibuprofen 800 MG 1 tablet Orally Thre e times a day for 30 day(s) 05/09/2015 Active Aspir-81 81 MG 1 tablet Orally Once a day for 30 day(s) 06/13/2017 Active Social History Tobacco Use: Social History Observation Description Date Details (start date - stop date) Never Smoker NA - NA Tobacco Use/Smoking Question Answer Notes Patient is a nonsmoker Additional Findings: Tobacco Non-User Cu rrent non-smoker, currently using no form of tobacco Vital Signs Blood pressure systolic 122 mm Hg 10/13/19 25 Blood pressure diastolic 60 mm Hg 025 Height 69 in 10/12/2024 Weight 169 lbs 10/12/2024 BMI 24.95 kg/m2 10/12/2024 weight is down 6 pounds [facility] e 09-08-24 Encounters Encounter Location Date Provider Diagnosis Edi Ly MD [address] [place] [address] Drive [address] [place], [place] [phone] 10/12/2024 Edi Ly Type 2 diabetes mellitus without complication, without long-term current use of insulin E11.9 ; History of coronary artery bypass graft Z95.1 and COVID-19 U07.1 Assessments Encounter Date Diagnosis (ICD Code) Assessment Notes Treatment Notes Treatment Clinical Notes Section Notes 10/12/2024 Type 2 diabetes mellitus without complication, without long-term current use of insulin (ICD-10 - E11.9) doing well off glyburide do 10/12/2024 History of coronary artery bypass graft (ICD-10 - Z95.1) doing well after surgery do 10/12/2024 COVID-19 (ICD-10 - U07.1) had covid in hospital had Plan Of Treatment Treatment Notes Assessment Notes Type 2 diabetes mellitus wit hout complication, without long-term current use of insulin doing well off glyburide History of coronary artery bypass graft doing well after surgery COVID-19 had covid in [facility] Appt Details Follow Up: 4 Weeks, Reason: Provider Name:Edi noguera, 11/12/2024 11:30:00 AM, [address], [address], [place], [place], [phone], Provider Name:Edi Velásquez ier, 02/01/2025 07:30:00 AM, [address], [address], [place], [phone], Provider Name:Edi Velásquez ier, 02/15/2025 11:00:00 AM, [address], [address], [place], [phone], Progress Notes * Gómez PASCUALDOB:[birth year] (84 yo M)Acc No.[id number]:10/12/2024 Patient:?Gómez PASCUAL Provider:?Edi Ly MD :1940???Age:84 Y???Sex:Male Garry e:10/12/2024 Address:[address] [place], [place] [phone] Subjective: * Chief Complaints: * ???1. PH/TCM. * HPI: ???Symptom(s):?patient is a 84yo male here for transitional care management visit followig recent hospitalization. discharge summary has been reviewed and medication reconcilled. * ROS:?General/Constitutional:?Denies?Chills.?Denies?Fatigue.?Denies?Fever.?Denies?Headache.?ENT:?Denies?Sore throat.?Respiratory:?Denies?Cough.?Denies?Shortness of breath at rest.?Denies?Shortness of breath with exertion.?Cardiovascular:?Denies?Chest pain at rest.?Denies?Chest pain with exertion.?Denies?Dizziness.?Denies?Palpitations.?Denies?Shortness of breath.?Gastrointestinal:?Denies?Diarrhea.?Denies?Nausea.? * Medical History:?Colonoscopy 2001.due 2011, 07/23/2012 - Colonoscopy - no further testing needed per Dr. Lakhani, BPH (benign prostatic hyperplasia). * Social History:?Tobacco Use:?Tobacco Use/Smoking?Patient is a?nonsmoker,?Additional Findings: Tobacco Non-User?Current non-smoker, currently using no form of tobacco.? * Medications:?Taking Aspir-81 81 MG Tablet Delayed Release 1 tablet Orally Once a day , Taking Ibuprofen 800 MG Tablet 1 tablet Orally Three times a day , Taking Atorvastatin Calcium 20 MG Tablet TAKE 1 TABLET BY MOUTH EVERY DAY FOR 90 DAYS , Taking Metoprolol Succinate ER 25 MG Tablet Extended Release 24 Hour 1 tablet Orally bid , Taking metFORMIN HCl 500 MG Tablet TAKE 2 TABLETS BY MOUTH TWICE A DAY WITH MEALS ORALLY ONCE A DAY 90 DAYS , Not-Taking/PRN Tylenol 325 MG Tablet 1 tablet as needed Orally every 4 hrs , Not-Taking/PRN Virtussin A/C 100-10 MG/5ML Solution 5 ml orally once a day , Not-Taking/PRN Indomethacin 50 MG Capsule 1 capsule with food or milk Orally Three times a day , Not-Taking/PRN Colchicine 0.6 MG Tablet 1 tablet Orally twice a day , Medication List reviewed and reconciled with the patient * Allergies:?Bactrim DS: most likely rash from this one. Objective: * Vitals:?Ht: 69, Wt: 169, BMI :24.95, BP:122/60, Wt-k.66. weight is down 6 pounds since 09-08-24. * Examination: ???General Examination: ?GENERAL APPEARANCE:?alert, well hydrated, in no distress.?HEAD:?normocephalic.?SKIN:?good turgor.?HEART:?regular rate and rhythm, no murmurs, rubs, gallops.?LUNGS:?no wheezes, rales, rhonchi, good air movement, clear to auscultation bilaterally.?EXTREMITIES:?trace edema.? Assessment: * Assessment: 1.?Type 2 diabetes mellitus without complication, without long-term current use of insulin - E11.9 (Primary)???2.?History of coronary artery bypass graft - Z95.1???3.?COVID-19 - U07.1??? Plan: * Treatment: 2.?History of coronary arter y bypass graft? Notes: doing well after surgery?? Clinical Notes: do?? 3.?COVID-19? Notes: had covid in hospital?? Clinical Notes: had?? * Follow Up:?4 Weeks * * The named appointment provid er may or may not be the originator of this progress note, and it is not deemed complete until electronically signed by the appointment provider. Sign off status: Pending * Provider:?Edi Ly MD Date:?0 10/12/2024 Generated for Balwinder vaughn/Krystyna/Marcoitting on:?10/12/2024 03:41 PM EDT History and Physical Notes * HPI (History of Present Illness) Category Sub-Category Detail Notes Category Not es Symptom(s) patient is a 84 yo male here for transitional care management visit followig recent hospitalization. discharge summary has been reviewed and medication reconcilled. Examination Category Sub-Category Detail Notes Category Not es General Examination GENERAL APPEARANCE: alert, w ell hydrated, in no distress HEAD: normocephalic HEART: regular rate and rhy thm, no murmurs, rubs, gallops LUNGS: no wheezes, rales, r honchi, good air movement, clear to auscultation bilaterally SKIN: good turgor EXTREMITIES: trace edema
== END 2024-10-12 13:11 | disposition home or self-care (01) ==
LOC: HO.LNP 13:10
PROVIDERS: Visit Provider Internal Medicine
DX: E87.5 Hyperkalemia (principal)
CPT/HCPCS: 84132

== ENCOUNTER 2024-10-29 11:18 | Outpatient (AMB) | payer MEDICARE, SELFPAY ==
[2024-10-29 11:36] VITALS: BP 116/66; PULSE 94; BMI 23.4
--- NOTE | 2024-10-29 11:36 | MHC.OFFVIS ---
Vital Signs 10/29/24 11:36 Height 5 ft 10 in Weight 163 lb 2.273 oz BMI 23.4 BP 116/66 Blood Pressure Location Lt brachial Position Sitting Pulse 94 Intake Visit Reasons: 4 wks fu post cardiac surgery Intake Note: 4 month follow-up post cardiac surgery feeling good Drafting Instructor Required: No Ventilation Equipment Tender: Ventilation Equipment Tender Present Accompanied by: Family/Other Allergies No Known Allergies Allergy (Verified 07/01/24 02:12) Medication List - Last Reconciled 10/29/24 by Joao Caruso MD aspirin 325 mg PO DAILY atorvastatin 20 mg PO DAILY metformin 1,000 mg PO BID metoprolol succinate ER 25 mg PO BID HPI Comments Details: Gómez comes for follow-up after recent coronary artery bypass grafting for critical left-sided coronary artery disease with left main equivalent disease with chronic total occlusion of the proximal LAD with 95% ostial circumflex lesion. Patient underwent two-vessel coronary bypass grafting urgent with CUENCA to LAD and SVG to OM. Post surgically the sternal wound has healed well. Although the chest tube and pacer wire wounds have not healed completely with some bloody drainage. Patient's is currently packing it although this is preventing it from healing. No fever or chills no pus or redness around the wound site. Patient has had weakness and difficult recovery with frailty post surgically. However he was not had any anginal symptoms. Just started 1st cardiac rehab session. Denies any heart failure symptoms of orthopnea, PND. Preoperatively his LV ejection fraction was 36%. [facility] Medical History CAD (coronary artery disease) Hyperlipidemia Diabetes Surgical History History of surgical removal of squamous cell carcinoma of skin of left restoration Family History Father CAD (coronary artery disease) Mother No problems noted. Social History Patient Tobacco Use Status: Never used Tobacco Review of Systems Const Denies chills, Denies fatigue, Denies fever(s), Denies frequent falls, Reports poor appetite, Reports weakness, Denies weight gain and Denies weight loss ENT Denies dizziness Card Denies chest pain, Denies leg edema, Denies lightheadedness, Denies palpitations, Denies dyspnea, Denies dyspnea on exertion, Denies orthopnea and Denies other (loss of consciousness) Resp Denies cough, Denies dyspnea and Denies dyspnea on exertion GI Denies hematochezia and Denies change in stool character Musc Denies abnormal gait, Denies muscle weakness, Denies numbness, Denies radiating pain into limb and Denies tingling Neuro Denies abnormal gait, Denies dizziness, Denies frequent falls, Denies numbness, Denies tingling and Reports weakness Endo Denies fatigue and Denies palpitations Physical Exam Vital Signs: Last Vital Signs Pulse 94 10/29/24 11:36 BP 116/66 10/29/24 11:36 BMI result Body Mass Index 23.4 Const General: cooperative, comfortable, no acute distress, alert and awake Nutritional Appearance: thin and other (Frail appearing) Orientation/consciousness: patient oriented x3 Limitations: no limitations HEENT Head: Yes normocephalic and Yes atraumatic Neck Neck: Yes trachea midline, Yes supple and Yes no JVD Carotids: no bruits Chest Chest palpation & inspection: other (Well-healed sternotomy scar with open wounds at the pacer wire sites ) Resp Effort & Inspection: normal respiratory effort Auscultation: clear to auscultation bilaterally Cardio Jugular venous distension: no JVD Palpation: normal PMI Rate: regular rate Rhythm: regular rhythm Heart sounds: S1 normal heart sound present, S2 normal heart sound present, no click, no gallops, no murmurs and no rubs GI Auscultation: normal bowel sounds Skin General skin exam: no rashes or lesions noted Neuro General: patient oriented x3 and no focal motor deficits Extrem General: Yes no clubbing, cyanosis or edema Psych Appearance: grossly normal Assessment & Plan Assessment & Plan (1) CAD (coronary artery disease): Code(s): I25.10 - Atherosclerotic heart disease of [place] coronary artery without angina pectoris Category: Medical Plan: CAD with recent crescendo angina with left main equivalent disease with ischemic cardiomyopathy with LVEF of 36% prior to the surgery. Will follow-up echocardiogram in near future to assess for improvement in LV ejection fraction. For now continue metoprolol therapy. The sternal wound has healed well although pacer site wounds have not healed well. He is going to have follow-up with [facility] cardiac surgery team today. Continue lifelong aspirin therapy. Will switch his atorvastatin to 80 mg daily with follow-up lipids in 6 weeks time with target goal LDL less than 55 mg/dL. Continue aggressive diabetes management. Blood pressure is well optimized. Continue metoprolol therapy for both neurohormonal modulation as well as for blood pressure control. Recommend to continue phase 2 cardiac rehabilitation. Encouraged to improve his nutrition as well with high protein content in his diet. He understands and agrees. Follow up in the clinic in 3 months time with EKG. Thank you for allowing me to partake in his care Orders: Orders Lipid Panel 6 Weeks I25.10 - Atherosclerotic heart disease of [place] coronary artery without angina pectoris CA Echo Limited Today I42.9 - Cardiomyopathy, unspecified, Z95.1 - Presence of aortocoronary bypass graft Medications: New metoprolol succinate ER (Toprol XL) 25 mg PO BID 60 tabs 5RF atorvastatin 80 mg PO DAILY 30 tabs 5RF Coding Level of Care Code Est Pt Level 4 (70384) Complex EM visit Add On G2211 Diagnoses CAD (coronary artery disease) I25.10
--- OUTSIDE RECORDS SUMMARY | 2024-10-29 13:31 | XMS_ITS | Continuity of Care Document ---
Author Organization [facility] ter Address [address] [place] [address]- Care Team Providers Care Certified Lactation Counselor Name Role Phone Malachi DELANEY, Edi Primary Care Physician [phone] Encounter [facility] Date(s): 09/25/24 - 10/25/[address] [address]- Attending Physician: Not on Staff, Attending MD Admitting Physician: Not on Staff, Admitting MD Referring Physician: Not on Staff, Referring MD Encounter Type: Pre-Outpt Allergies, Adverse Reactions, Alerts No Known Allergies [...] rded RSV vaccine preF3, recombinant 07/26/23 Recorded BIHF-NgU-7mHER 12y+ bivalent booster vax 04/30/22 Recorded SARS-CoV-2 mRNA (cazavau-mmeg-ewwia) vax 10/18/21 Recorded SARS-CoV-2 (COVID-19) mRNA BNT-162b2 [...] 12:14:00 PM EDT, Route to Pharmacy Electronically, [facility], Partial fill upon patient request if [...] 03/08/21 Active 1Problem added by Discern Expert Social History Social History Type Response Smoking Status Never (less than 100 in lifetime) entered on: 05/05/19 Sex Sex Representation Male (finding) Patient Care team information Care Team Personnel Name: Edi Ly MD Position: Reference Physician Member Role: PCP Address: [address] [place] [address] Edi Ly MD [place], [place] [address] Telecom: [phone] Name: Susanne Rios RN Position: S RN Member Role: Primary Care Nurse Name: Annmarie Faria RN Position: S RN Member Role: Primary Care Nurse Name: Torsten Carr RN Position: S RN Member Role: Primary Care Nurse Name: Marquita Cyr RN Position: S RN Member Role: Primary Care Nurse Care Team Related Persons Name: STEPHON FERRER Insurance Providers Guarantor name: EVIE FERRER Health Plan Information #: 1 Payer: MEDICARE PART B OUTPT Member Number: NA Policy Number: NA Group Number: NA Health Plan Information #: 2 Payer: MEDEX Member Number: NA Policy Number: NA Group Number: NA
--- OUTSIDE RECORDS SUMMARY | 2024-10-29 13:31 | XMS_ITS ---
Author Organization Edi Ly MD Address [address] [place] [phone] Care Team Providers Care Radio Dispatcher Name Role Phone MalachiNancyn Primary Care Provider REASON FOR VISIT Discharge summary rec'd Encounters Encounter Location Date Provider Diagnosis Edi Ly MD [address] [facility] [address] [place] [phone] 10/01/2024 Edi Ly Plan Of Treatment Next Appt Details Provider Name:Edi noguera, 11/12/2024 11:30:00 AM, [address] [place] [address], Suite [facility], [place], [place], [phone], Provider Name:Edi noguera, 02/01/2025 07:30:00 AM, [address] [place] [address], Suite [facility], [place], [place], [phone], Provider Name:Edi noguera, 02/15/2025 11:00:00 AM, [address], [address], [place], [phone], Progress Notes * PASCUALGómez LOPEZDOB:[birth year] (84 yo M)Acc No.[id number]:10/01/2024 Patient:?Gómez PASCUAL :1940???Age:84 Y???Sex:Male Address:[address] [place] [address] * true * Date:? Generated for Purvii roderick/Krystyna/eTransmitting on:?10/29/2024 01:31 PM EDT
--- OUTSIDE RECORDS SUMMARY | 2024-10-29 13:31 | XMS_ITS | Patient Health Record ---
Author Organization [facility] Julio jeremy Paul Address [address] [facility] [place] [address] Care Team Providers Care Airplane Gas Tank Liner Assembler Name Role Phone Malachi DELANEY, Edi Primary Care Provider Regino Sun Unavailable [phone] Allergies No Known Allergies Reason For Referral [...] W/U Status Risk Notes Problem Ingrowing nail (220371221) Ingrowing nail (L60.0) Active confirmed Problem Chronic ulcer of foot (872647908) Non-pressure chronic ulcer of other part of left foot with fat layer exposed (L97.522) Active confirmed Problem Polyneuropathy due to type 2 diabetes mellitus (858449083) Type 2 diabetes mellitus with diabetic polyneuropathy (E11.42) Active confirmed Problem Type II diabetes mellitus without complication (167038986) Type 2 diabetes mellitus without complications (E11.9) Active confirmed Vital Signs Height 5 ft 10 in in 11/04/2023 Weight 175 lbs 11/04/2023 BMI 25.11 kg/m2 11/04/2023 Procedures Procedure Date Ordered Date Performed Result Body Sit e 89130-EDUKJPS SKIN/TISSUE 11/04/2023 N/A Encounters Encounter Location Date Provider Diagnosis [facility] [place] [address] [place] [address] 11/04/2023 Regino Murphy Non-pressure chronic ulcer of other part of left foot with fat layer exposed L97.522 Assessments Encounter Date Diagnosis (ICD Code) Assessment Notes Treatment Notes Treatment Clinical Notes Section Notes 11/04/2023 Non-pressure chronic ulcer of other part of left foot with fat layer exposed (ICD-10 - L97.522) Plan Of Treatment Pending Test Test Name Order Date 42642-Nrsdamka Plate 03/27/2017 95658-Ffzjaltr Plate 05/08/2018 79868-Clhghhmc Plate 05/20/2018 46381-Jhjqhmah Plate 11/07/2015 00077-STW 08/26/2018 40618- Debride <25 sq cm 09/12/2018 97422- Debride <25 sq cm 03/27/2017 59876-IXAIYVQ SKIN/TISSUE 11/04/2023 19965 I&D ABSCESS- SIMPLE,SINGLE 017 Insurance Providers Payer Name Payer Address Payer Phone Subscriber Number Group Number Insured Name Patient Relationship to Insured Coverage Start Date Coverage End Date Medicare National [employer] [address] [place] [address] [id number] Gómez Pascual Self - [facility] [address] [place] [address] [phone] [id number] Gómez Pascual Self - patient is the insured Medical (General) History Medical History History ICD Code Gout skin cancer Diabetes CAD covid-19 Measles Mumps Cataracts Surgical History Surgery Date(Month/Year) skin cancer surgery
--- OUTSIDE RECORDS SUMMARY | 2024-10-29 13:31 | XMS_ITS ---
Author Organization [facility] Address [address] [facility] [place] [address] Care Team Providers Care Plastic Sheeting Cutter Name Role Phone Malachi DELANEY, Edi Primary Care Provider Regino Sun Unavailable [phone] Allergies No Known Allergies REASON FOR VISIT [...] 10/17/2023 Encounters Encounter Location Date Provider Diagnosis [facility] [place] [address] [place] [address] 10/17/2023 Regino Murphy Ingrowing nail L60.0 Assessments [...] * Gómez PASCUAL MDOB:1940 (83 yo M)Acc No.[id number]:10/17/2023 Progress Note Patient:?Gómez Pascual Rubens Provider:?Regino Murphy DPM :1940???Age:83 Y???Sex:Male Garry e:10/17/2023 Address:[address] [place], [place] [phone] Pcp:Edi Ly MD Subjective: * Chief Complaints: [...] ?Exercise: yes, walking. ?Marital status: . ?Occupation: Retired-[employer]. * Medications:?TakingBaby Aspi rin metFORMIN HCl 500 [...] and the prognosis is favorable.? * Procedure Codes:?60382 REMOV AL OF NAIL BED, Modifiers: TA A4550 STERILE TRAY * Follow Up:?2 Weeks * Images: * Sign off status: Completed true * Provider:?Regino Murphy DPM Date:? 024 Generated for Balwinder vaughn/Krystyna/Janice on:?10/29/2024 01:31 PM EDT History and Physical Notes * Examination Category Sub-Category Detail Notes Category Not es Ingrown Nail INSPECTION: Ophthalmology Referral DIABETES EYE EXAM Diabeti c Retinopathy Screening:: Yes Findings of Diabetic Eye Exam:: no retin opathy
--- OUTSIDE RECORDS SUMMARY | 2024-10-29 13:31 | XMS_ITS ---
Author Organization Edi Ly MD Address [address] [place] [phone] Care Team Providers Care Air Traffic Control Supervisor Name Role Phone RahulNancy spanglern Primary Care Provider [phone] Results Component Value Reference Range Notes Potassium Reviewed date:10/12/2024 05:26:47 PM Interpretation: Performing Lab:[facility], [address] [place] [phone] Notes/Report: Potassium 4.3 3.3-5.1 mmol/L REASON FOR VISIT Potassium Encounters Encounter Location Date Provider Diagnosis Edi Ly MD [address] [place] [phone] 10/12/2024 Edi Ly Hyperkalemia E87.5 Assessments Encounter Date Diagnosis (ICD Code) Assessment Notes Treatment Notes Treatment Clinical Notes Section Notes 10/12/2024 Hyperkalemia (ICD-10 - E87.5) Plan Of Treatment Next Appt Details Provider Name:Edi noguera, 11/12/2024 11:30:00 AM, [address], [address], [place], [place], [phone], Provider Name:Edi Velásquez poornima, 02/01/2025 07:30:00 AM, [address] [facility] [address], [address], [place], [place], [phone], Provider Name:Edi Velásquez angelr, 02/15/2025 11:00:00 AM, [address] [facility] [facility] [address], [address], [place], [place], [phone], Progress Notes * Gómez PASCUALDOB:[birth year] (84 yo M)Acc No.[id number]:10/12/2024 Progress Note Patient:?Gómez PASCUAL Provider:?Edi Ly MD :1940???Age:84 Y???Sex:Male Garry e:10/12/2024 Address:[address] [place], [place] [phone] Subjective: * Chief Complaints: * ???1. Potassium. * Medical History:? Objective: * Vitals:? Assessment: * Assessment: 1.?Hyperkalemia - E87.5 (Olga scott)??? Plan: * Treatment: * Procedure Codes:?42373 VENIP UNCT, ROUTINE* * * The named appointment provid er may or may not be the originator of this progress note, and it is not deemed complete until electronically signed by the appointment provider. Sign off status: Pending * Provider:?Edi Ly MD Date:?0 10/12/2024 Generated for Balwinder vaughn/Krystyna/eTransmitting on:?10/29/2024 01:31 PM EDT
--- OUTSIDE RECORDS SUMMARY | 2024-10-29 13:31 | XMS_ITS ---
Author Organization [facility] Julio jeremy Paul Address [address] [place] [address] Care Team Providers Care Flat Bed Knitter Name Role Phone Malachi DELANEY, Edi Primary Care Provider Regino Sun Unavailable [phone] Allergies No Known Allergies REASON FOR VISIT [...] Risk Notes Problem Chronic ulcer of foot (635619628) Non-pressure chronic ulcer of other part of left foot with fat layer exposed (L97.522) Active confirmed Vital Signs Height 5 ft 10 in in 11/04/2023 Weight 175 lbs 11/04/2023 BMI 25.11 kg/m2 11/04/2023 Procedures Procedure Date Ordered Date Performed Result Body Sit e 00798-JPDKMIJ SKIN/TISSUE 11/04/2023 N/A Encounters Encounter Location Date Provider Diagnosis [facility] [address] [place] [address] 11/04/2023 ReginoBrooks Non-pressure chronic ulcer of other part of left foot with fat layer exposed L97.522 Assessments Encounter Date Diagnosis (ICD Code) Assessment Notes Treatment Notes Treatment Clinical Notes Section Notes 11/04/2023 Non-pressure chronic ulcer of other part of left foot with fat layer exposed (ICD-10 - L97.522) Plan Of Treatment Pending Test Test Name Order Date [id number] SKIN/TISSUE 11/04/2023 Next Appt Details Follow Up: [...] symptoms of infection or any untoward reactions (56916), Progress Notes * Gómez PASCUAL MDOB:1940 (83 yo M)Acc No.[id number]:11/04/2023 Progress Notes Patient:?Gómez Pascual Provider:?Regino Murphy DPM [...] ?Exercise: yes, walking. ?Marital status: . ?Occupation: Retired-[employer]. * Medications:?TakingBaby Aspi rin metFORMIN HCl 500 [...] symptoms of infection or any untoward reactions (40494), .? * Procedure Codes:?75325 DEBRI DE SKIN/TISSUE, Modifiers: XS * Follow Up:?prn * Images: * Sign off status: Completed true * Provider:?Regino Murphy DPM Date:? 024 Generated for Balwinder vaughn/Krystyna/eTransmitting on:?10/29/2024 01:31 PM EDT History and Physical [...]
--- OUTSIDE RECORDS SUMMARY | 2024-10-29 13:32 | XMS_ITS | Patient Health Record ---
Author Organization Edi Ly MD Address [address] [place], [place] [id number] Care Team Providers Care Pie Maker Name Role Phone Edi Ly Primary Care Provider Allergies Allergen (clinical drug ingredient) Drug/Non Drug Allergy documented on EMR Reaction Allergy Type Onset Date Status sulfamethoxazole / trimethoprim Bactrim DS most likely rash from this one Drug Allergy Active Results Component Value Reference Range Notes Hemoglobin A1c Reviewed date:08/27/2024 09:05:08 AM Interpretation: Performing Lab: Notes/Report: Hemoglobin A1c 6.7 Complete Blood Count Auto Di ff Reviewed date:01/30/2024 12:23:25 PM Interpretation: Performing Lab:[facility], [address] [place] [phone] Notes/Report: White Blood Count 12.9 4.8-10.8 X10*3/uL Red Blood Count 4.46 4.60-5.80 X10*6/uL Hemoglobin 14.6 14.0-18.0 g/dl Hematocrit 41.9 42.0-52.0 % Mean Corpuscular Volume 93.9 80.0-98.0 fL Mean Corpuscular Hemoglobin 32.7 27.0-33.0 pg Mean Corpuscular HGB Conc 34.8 31.0-36.0 g/dl Red Cell Distribution Width 13.0 11.0-16.0 % Platelet Count 204 160-400 X10*3/uL Mean Platelet Volume 12.7 9.4-12.4 fL Neutrophils Percent Auto 76.3 45-73 % Imm Gran Pct Auto 0.5 0.0-0.4 % Lymphocytes Percent Auto 16.1 20-40 % Monocytes Percent Auto 6.9 2-11 % Eosinophils Percent Auto 0.0 0-4 % Basophils Percent Auto 0.2 0-2 % NRBC Pct Auto 0.0 0.0-0.2 /100WBC Neutrophils Absolute Auto 9.8 2.0-8.3 x10*3/u L Imm Gran Abs Auto 0.06 0.00-0.03 X10*3/uL Lymphocytes Absolute Auto 2.1 1.2-4.9 X10*3/u L Monocytes Absolute Auto 0.9 0.1-1.2 X10*3/uL Eosinophils Absolute Auto 0.0 0.0-0.4 X10*3/u L Basophils Absolute Auto 0.0 0.0-0.2 X10*3/uL NRBC Abs Auto 0.000 0.0-0.012 X10*3/uL Comprehensive [place]. Panel Fa st Reviewed date:01/30/2024 12:59:15 PM Interpretation: Performing Lab:[facility], [address] [place] [phone] Notes/Report: Sodium 141 135-145 mmol/L Potassium 4.4 3.3-5.1 mmol/L Chloride 109 96-108 mmol/L Carbon Dioxide 21 22-29 mmol/L Anion Gap 15 12-20 Blood Urea Nitrogen 23 9-16 mg/dL Creatinine 1.19 0.5-1.4 mg/dL Estimated Glomerular Filt Rate 58 NOTE: For -Stateless individuals, multiply the result by 1.210. Chronic Kidney Disease: Estimated GFR < 60 mL/min/1.73m2 Severe Kidney Disease: Estimated GFR < 15 mL/min/1.73m2 Glucose Fasting 234 60-99 mg/dL A fasting glucose of 126 mg/dl or greater on more than one occasion is considered diagnostic of diabetes. Calcium 10.3 8.4-10.2 mg/dL Bilirubin Total 0.5 0.0-1.0 mg/dL Aspartate Amino Transferase 17 5-37 U/L Alanine Aminotransferase 23 0-40 U/L Total Protein 7.5 6.5-8.0 g/dL Albumin Level 4.2 3.5-5.0 g/dL Alkaline Phosphatase 77 39-117 U/L Lipid Panel Reviewed date:01/30/2024 12:23:59 PM Interpretation: Performing Lab:[facility], [address] [place] [phone] Notes/Report: Triglycerides 59 <150 mg/dL Desirable Triglyceride: less than 150 mg/dL Borderline High Triglyceride 150-199 mg/dL High Triglyceride: 200-499 mg/dL Very High Triglyceride: greater than or equal to 5OO mg/dL Cholesterol 117 <200 mg/dL Desirable Cholesterol: less than 200 mg/dL Borderline High Cholesterol: 200-239 mg/dL High Cholesterol: greater than 239 mg/dL LDL Cholesterol Calculated 55 <100 mg/dL Desirable LDL: less than 100 mg/dL Near Optimal/Above Optimal LDL: 110-129 mg/dL Borderline High LDL: 130-159 mg/dL High LDL: 160-189 mg/dL Very High LDL: greater than or equal to 190 mg/dL HDL Cholesterol 51 >40 mg/dL Desirable HDL: greater than 40 mg/dL Note: This HDL assay may give artificially low results in patients with liver disease. PSA,Total (Free>4and<10) Reviewed date:01/30/2024 12:58:49 PM Interpretation: Performing Lab:[facility], [address] [place] [phone] Notes/Report: PSA,Total (Free>4and<10) 0.70 0.00-4.00 ng/mL A Free PSA was not performed: The percentage of Free PSA can be used to enhance the differentiation of prostate cancer from benign prostatic disease in subjects whose PSA levels are between 4.0 and 10.0 ng/mL. For subjects whose PSA levels are below 4.0 or above 10.0 ng/mL, the risk of prostate cancer is determined on the basis of the PSA alone. Therefore the % Free PSA is recommended only for those subjects whose PSA levels are between 4.0 and 10.0 ng/mL. PSA methodology: Conroy Alinity i Chemiluminescent Microparticle Immunoassay (CMIA) Microalbumin, Random Reviewed date:01/30/2024 12:57:51 PM Interpretation: Performing Lab:[facility], [address] [place] [phone] Notes/Report: Creatinine Urine 142.97 Microalbumin Urine 21.0 Microalbum/Creatinine Ratio Ur 14.6 <30 ug/mg cr Albumin/Creatinine Ratio Reference Ranges: Normal: < 30 ug/mg creatinine Microalbuminuria: 30 - 300 ug/mg creatinine Clinical Albuminuria: > 300 ug/mg creatinine Hemoglobin A1c Reviewed date:01/30/2024 12:24:09 PM Interpretation: Performing Lab:[facility], [address] [place] [phone] Notes/Report: Hemoglobin A1c % 6.3 <6.0 % Hemoglobin A1C Reference Range Adults: 4.8 - 6.0 % Non diabetic: < 6.0 % Goal: < 7.0 % Additional Action Suggested: > 8.0 % Note: Hemoglobin A1c results are invalid for patients with abnormal amounts of HbF. Blood transfusions may impact the HbA1c concentration in the patient sample. Estimated Average Glucose 134 eAG = Estimated average glucose which is %A1C expressed as average glucose, using the formula of the [id number] Average Glucose study (ADAG), Diabetes Care, Vol.31,#8, Feb. 2007 UA ClnCatch+Micro w/rflx Cul t Reviewed date:01/30/2024 01:34:21 PM Interpretation: Performing Lab:[facility], [address] [place] [phone] Notes/Report: Urine, Clean Catch Color Urine Yellow Appearance Urine Clear PH 5.5 5.0-9.0 Glucose Urine UA >=1000 Negative mg/dL Urine Blood Negative Negative Specific [place] - Urine 1.025 1.005-1.025 Urine Protein Trace Neg-Trace mg/dL Urine Ketones Negative Negative mg/dL Nitrite Urine Negative Negative Leukocyte Esterase Urine Negative Negative RBC Urine 0-2 0-2 /HPF WBC Urine 0-5 0-5 /HPF Squamous Epithelial Cell Urine 0-2 0-2 /HPF Bacteria Urine None Seen None Seen Hyaline Casts Urine 0-2 0-2 /LPF Blood Urea Nitrogen Reviewed date:03/23/2024 12:45:17 PM Interpretation: Performing Lab:[facility], [address] [place] [phone] Notes/Report: Blood Urea Nitrogen 17 9-16 mg/dL Creatinine Reviewed date:03/23/2024 12:44:44 PM Interpretation: Performing Lab:[address] [phone] Notes/Report: Creatinine 1.17 0.5-1.4 mg/dL Estimated Glomerular Filt Rate 60 NOTE: For -Stateless individuals, multiply the result by 1.210. Chronic Kidney Disease: Estimated GFR < 60 mL/min/1.73m2 Severe Kidney Disease: Estimated GFR < 15 mL/min/1.73m2 Calcium Reviewed date:03/23/2024 12:45:04 PM Interpretation: Performing Lab:[facility], [address] [place] [phone] Notes/Report: Calcium 9.7 8.4-10.2 mg/dL Potassium Reviewed date:10/12/2024 05:26:47 PM Interpretation: Performing Lab:[address] [phone] Notes/Report: Potassium 4.3 3.3-5.1 mmol/L Occult Blood, Stool, Guaiac Reviewed date:02/07/2024 12:33:33 PM Interpretation:Negative Performing Lab: Notes/Report: Negative Occult Blood, Stool, Guaiac Neg Glucose, finger stick Reviewed date:08/27/2024 08:58:03 AM Interpretation: Performing Lab: Notes/Report: Value 136 XR ankle LT min 3V Reviewed date:01/28/2024 12:07:39 PM Interpretation: Performing Lab: Notes/Report: [facility] [address] [place] [address] XRay Report Signed Patient: Gómez Pascual MR#: [id number] 595 : 1940 Acct:[id number] Age/Sex: 83 / M ADM Date: 01/28/24 [facility]: Mari Means PA-C Ordering Physician: Mari Means PA-C Date of Service: 01/28/24 Procedure(s): XR ankle LT min 3V Accession Number(s): [id number] cc: Edi Ly MD; Mari Means PA-C; David Martins MD EXAMINATION: XR ANKLE, LEFT CLINICAL INFORMATION: Pain COMPARISON: None available. TECHNIQUE: AP, lateral, and mortise views of the left ankle. FINDINGS: Mortise intact. No fracture, dislocation or destructive process. Minimal chronic fragmentation about the medial malleolus. Vascular calcifications are present. XR/XR ankle LT min 3V IMPRESSION: No acute findings. Dictated By: Schuyler Coburn MD Signed By: <Electronically signed by Schuyler Coburn MD in OV> 01/28/241156 DD/ 111 TD/TT: Strategic Analyst: [facility] [address] [place] [address] [place] [address] XRay Report Signed Patient: Gómez Pascual MR#: [id number] 595 : 1940 Acct:[id number] Age/Sex: 83 / M ADM Date: 01/28/24 Loc: .[facility] Attending Dr: Mari Means PA-C Ordering Physician: Mari Means PA-C Date of Service: 01/28/24 Procedure(s): XR ank le LT min 3V Accession Number(s): [id number] cc: Edi Ly MD; Mari Means PA-C; David Martins MD EXAMINATION: XR ANKLE, LEFT CLINICAL INFORMATION: Pain COMPARISON: None available. TECHNIQUE: AP, lateral, and mortise views of the left ankle. FINDINGS: Mortise intact. No fracture, dislocation or destructive process. Minimal chronic fragmentation about the medial malleolus. Vascular calcifications are present. XR/XR ankle LT min 3V IMPRESSION: No acute findings. Dictated By: Schuyler Coburn MD Signed By: <Electronically signed by Schuyler Coburn MD in OV> 01/28/241156 DD/ 111 TD/TT: Strategic Analyst: EDISON RON Reviewed date:07/02/2024 10:42:02 AM Interpretation: Performing Lab: Notes/Report: [address] [address] XRay Report Signed Patient: Gómez Pascual MR#: [id number] 595 : 1940 Acct:[id number] Age/Sex: 83 / M ADM Date: 07/01/24 Loc: .ED Attending Dr: Ordering Physician: Juan M Cooley MD Date of Service: 07/01/24 Procedure(s): XR KUB Accession Number(s): [id number] cc: Edi Ly MD; Juan M Cooley MD EXAMINATION: XR ABDOMEN KUB CLINICAL INDICATION: fecal impaction COMPARISON: None available. TECHNIQUE: AP view of the abdomen. FINDINGS: The bowel gas pattern is normal with no evidence of ileus or obstruction. Retained stool throughout the colon including the rectum with rectal expansion up to 6.7 cm. No unusual soft tissue calcifications are noted. The bones are unremarkable. XR/XR KUB IMPRESSION: 1. Nonobstructive bowel gas pattern. 2. Retained stool throughout the colon including the rectum with rectal expansion up to 6.7 cm. Electronically signed by: Tevin Hayden MD 07/01/2024 02:59 AM [facility] Dictated By: Tevin Hayden MD Signed By: <Electronically signed by Tevin Hayden MD in OV> 07/01/24 0259 DD/ 0238 TD/TT: 07/01/24 0247 Strategic Analyst: [address] [address] XRay Report Signed Patient: Gómez Pascual MR#: [id number] 595 : 1940 Acct:[id number] Age/Sex: 83 / M ADM Date: 07/01/24 Loc: .ED Attending Dr: Ordering Physician: Juan M Cooley MD Date of Service: 07/01/24 Procedure(s): XR KUB Accession Number(s): [id number] cc: Edi Ly MD; Juan M Cooley MD EXAMINATION: XR ABDOMEN KUB CLINICAL INDICATION: fecal impaction COMPARISON: None available. TECHNIQUE: AP view of the abdomen. FINDINGS: The bowel gas patter n is normal with no evidence of ileus or obstruction. Retaine d stool throughout the colon including the rectum with rectal expansio n up to 6.7 cm. No unusual soft tissue calcifications are noted. The bones are unremarkable. XR/XR KUB IMPRESSION: 1. Nonobstructive bowel gas pattern. 2. Retained stool throughout the colon including the rectum with rectal expansion up to 6.7 cm. Electronically susan d by: Tevin Hayden MD 07/01/2024 02:59 AM [facility] Dictated By: Tevin Hayden MD Signed By: <Electronically signed by Tevin Hayden MD in OV> 07/01/24 0259 DD/ 0238 TD/TT: 07/01/24 0247 Strategic Analyst: Mellissa [place] Reviewed date:08/21/2024 12:32:15 PM Interpretation: Performing Lab:[facility], [address] [place] [phone] Notes/Report: Mellissa [place] See Note Specimen held untested for 24 hours; Call to request Chemistry testing. Complete Blood Count no Diff Reviewed date:09/11/2024 12:30:30 PM Interpretation: Performing Lab:[facility], [address] [place] [phone] Notes/Report: White Blood Count 8.4 4.8-10.8 X10*3/uL Red Blood Count 4.64 4.60-5.80 X10*6/uL Hemoglobin 14.5 14.0-18.0 g/dl Hematocrit 44.0 42.0-52.0 % Mean Corpuscular Volume 94.8 80.0-98.0 fL Mean Corpuscular Hemoglobin 31.3 27.0-33.0 pg Mean Corpuscular HGB Conc 33.0 31.0-36.0 g/dl Red Cell Distribution Width 12.4 11.0-16.0 % Platelet Count 206 160-400 X10*3/uL Mean Platelet Volume 12.4 9.4-12.4 fL NRBC Pct Auto 0.0 0.0-0.2 /100WBC NRBC Abs Auto 0.000 0.0-0.012 X10*3/uL Prothrombin Time INR Reviewed date:09/11/2024 11:36:38 AM Interpretation: Performing Lab:[facility], [address] [place] [phone] Notes/Report: Prothrombin Time 11.7 10.9-12.4 SEC INTERNATIONAL NORM RATIO 1.0 0.9-1.1 INTERNATIONAL NORMALIZED RATIO (INR) REFERENCE RANGES Reference Range For patients not on anticoagulant therapy: 0.9 - 1.1 INR ranges for oral anticoagulant therapy: For prevention and treatment of venous thrombosis and pulmonary embolism: 2.0 - 3.0 For acute myocardial infarction with aspirin therapy: 2.0 - 3.0 For acute myocardial infarction without aspirin therapy: 3.0 - 4.0 For patients with mechanical prosthetic heart valves: 2.5 - 3.5 Basic Metabolic Panel Reviewed date:09/11/2024 11:40:16 AM Interpretation: Performing Lab:[facility], [address] [place] [phone] Notes/Report: Sodium 143 135-145 mmol/L Potassium 5.3 3.3-5.1 mmol/L Chloride 109 96-108 mmol/L Carbon Dioxide 28 22-29 mmol/L Anion Gap 11 12-20 Blood Urea Nitrogen 25 9-16 mg/dL Creatinine 1.25 0.5-1.4 mg/dL Estimated Glomerular Filt Rate 55 Chronic Kidney Disease: Estimated GFR < 60 mL/min/1.73m2 Severe Kidney Disease: Estimated GFR < 15 mL/min/1.73m2 Glucose Random 162 60-115 mg/dL Calcium 9.7 8.4-10.2 mg/dL Reason For Referral No Information Medications Medication [...] a day for 30 day(s) 06/13/2017 Active Immunizations Vaccine Route Administration Date Status Comme nts Flu Vaccine IM Intramuscular 04/02/2011 Administered Flu Vaccine IM Intramuscular 04/22/2012 Administered Shingles Unknown 06/20/2012 Administered Flu Vaccine IM Intramuscular 04/21/2013 Administered PPSV23 (Pnemovax) IM Intramuscular 10/16/2013 Administered Fluarix Quadrivalent IM Intramuscular 04/13/2014 Administe red Prevnar 13 IM Intramuscular 06/22/2014 Administered Fluarix Quadrivalent IM Intramuscular 04/22/2015 Administe red Fluarix Quadrivalent IM Intramuscular 05/28/2016 Administe red Prevnar 13 IM Intramuscular 05/28/2016 Administered Fluarix Quadrivalent IM Intramuscular 04/16/2017 Administe red Influenza High Dose IM Intramuscular 04/17/2018 Administer ed PPSV23 (Pnemovax) IM Intramuscular 01/06/2019 Administered Influenza High Dose IM Intramuscular 04/14/2019 Administer ed Influenza High Dose IM Intramuscular 03/10/2020 Administer ed SARS-COV-2 Pfizer Unknown 08/07/2020 Administered SARS-COV-2 Pfizer Unknown 08/28/2020 Administered Influenza High Dose IM Intramuscular 04/03/2021 Administer ed SARS-COV-2 Pfizer Unknown 04/13/2021 Administered Influenza High Dose IM Intramuscular 04/10/2022 Administer ed Influenza High Dose IM Intramuscular 04/01/2023 Administer ed Influenza High Dose IM Intramuscular 03/23/2024 Administer ed TDaP Unknown 07/18/2020 Refused Social History Tobacco Use: Social History Observation Description Date Details (start date - stop date) Never Smoker NA - NA Tobacco Use/Smoking Question Answer Notes Patient is a nonsmoker Additional Findings: Tobacco Non-User Cu rrent non-smoker, currently using no form of tobacco Alcohol Screen Question Answer Notes Did you have a drink containing alcohol in the p ast year? 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) Active confirmed Problem 49648270 Sciatica of righ t side (M54.31) Active confirmed Problem 604077638 Basal cell carci noma of multiple sites of head and neck (C44.41) Active confirmed Problem Pure hypercholesterolemia (653273730) Pure hypercholesterolemia (E78.00) Active confirmed Problem 640828936 Type 2 diabetes mellitus without complication, without long-term current use of insulin (E11.9) Active confirmed Problem Multiple premature ventricular complexes (442601354) 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 Vital Signs Blood pressure diastolic 60 mm Hg 10/12/2024 evette ght is down 6 pounds since 09-08-24 Height 69 in 10/12/2024 weight is down 6 pounds since 09-08-24 Blood pressure systolic 122 mm Hg 10/12/2024 weig ht is down 6 pounds since 09-08-24 Weight 169 lbs 10/12/2024 weight is down 6 pounds since 09-08-24 BMI 24.95 kg/m2 10/12/2024 weight is down 6 pounds since 09-08-24 Procedures Procedure Date Ordered Date Performed Result Body Sit e CARDIOVASCULAR STRESS TEST 08/27/2024 N/A Encounters Encounter Location Date Provider Diagnosis Edi Ly MD [address] [place] [id number] 01/30/2024 Edi Ly Type 2 diabetes brunilda itus without complication, without long-term current use of insulin E11.9 and Pure hypercholesterolemia E78.00 Edi Ly MD [address] [place], [place] [id number] 03/23/2024 Edi Ly Hypercalcemia E83.52 ; Encounter for immunization Z23 and Elevated BUN R79.9 Edi Ly MD [address] [place] [id number] 08/21/2024 Edi Ly Pure hypercholestero lemia E78.00 Edi Ly MD [address] [place] [id number] 10/12/2024 Edi Ly Hyperkalemia E87.5 Edi Ly MD [address] [place] [id number] 02/07/2024 Edi Ly Sciatica of right si de M54.31 ; Type 2 diabetes mellitus without complication, without long-term current use of insulin E11.9 ; Pure hypercholesterolemia E78.00 ; Hypercalcemia E83.52 ; Elevated BUN R79.9 ; Acute cellulitis L03.90 ; Colon cancer screening Z12.11 and Depression screening Z13.31 Edi Ly MD [address] [place] [id number] 02/21/2024 Edi Ly Epidermal cyst L72.0 and Local infection of the skin and subcutaneous tissue, unspecified L08.9 Edi Ly MD [address] [place] [id number] 08/27/2024 Edi Ly Type 2 diabetes brunilda itus without complication, without long-term current use of insulin E11.9 ; Shortness of breath on exertion R06.02 and Pure hypercholesterolemia E78.00 Edi Ly MD [address] [place] [id number] 09/08/2024 Edi Ly Abnormal ECG R94.31 and Frequent PVCs I49.3 Edi Ly MD [address] [place] [id number] 10/12/2024 Edi Ly Type 2 diabetes brunilda itus without complication, without long-term current use of insulin E11.9 ; History of coronary artery bypass graft Z95.1 and COVID-19 U07.1 Edi Ly MD [address] [place] [id number] 07/02/2024 Edi Ly MD [address] [place] [id number] 08/27/2024 Edidhaval Ly MD [address] [place] [address] Drive [address] [place], [place] [id number] 10/01/2024 Edi Ly Assessments Encounter Date Diagnosis (ICD Code) Assessment Notes Treatment Notes Treatment Clinical Notes Section Notes 01/30/2024 Type 2 diabetes mellitus without complication, without long-term current use of insulin (ICD-10 - E11.9) 01/30/2024 Pure hypercholesterolemia (ICD-10 - E78.00) 03/23/2024 Hypercalcemia (ICD-1 0 - E83.52) 03/23/2024 Encounter for immunization (ICD-10 - Z23) 08/21/2024 Pure hypercholesterolemia (ICD-10 - E78.00) 10/12/2024 Hyperkalemia (ICD-10 - E87.5) 02/07/2024 Sciatica of right si de (ICD-10 - M54.31) 02/07/2024 Type 2 diabetes mellitus without complication, without long-term current use of insulin (ICD-10 - E11.9) stable, will continue current regiment 02/21/2024 Epidermal cyst (ICD- 10 - L72.0) have him show it to dr stephens when he goes there 02/21/2024 Local infection of t he skin and subcutaneous tissue, unspecified (ICD-10 - L08.9) is improving, will continue to monitor 08/27/2024 Type 2 diabetes mellitus without complication, without long-term current use of insulin (ICD-10 - E11.9) doing well with good a1c, will continue current regiment 08/27/2024 Shortness of breath on exertion (ICD-10 - R06.02) THE ORDER HAS BEEN FAXED TO [facility] AND PATENT IS AWARE, pending additional testing 09/08/2024 Abnormal ECG (ICD-10 - R94.31) reviewed findings of stress test with patient 09/08/2024 Frequent PVCs (ICD-1 0 - I49.3) patient verbalized understanding of medication ad directions for use 10/12/2024 Type 2 diabetes mellitus without complication, without long-term current use of insulin (ICD-10 - E11.9) doing well off glyburide do 10/12/2024 History of coronary artery bypass graft (ICD-10 - Z95.1) doing well after surgery do 03/23/2024 Elevated BUN (ICD-10 - R79.9) 02/07/2024 Pure hypercholesterolemia (ICD-10 - E78.00) stable, will continue to monitor 08/27/2024 Pure hypercholesterolemia (ICD-10 - E78.00) stable, will continue current regiment 10/12/2024 COVID-19 (ICD-10 - U07.1) had covid in hospital had 02/07/2024 Hypercalcemia (ICD-1 0 - E83.52) will cntinue to monitor 02/07/2024 Elevated BUN (ICD-10 - R79.9) will continue to monitor 02/07/2024 Acute cellulitis (ICD-10 - L03.90) patient verbalized understanding of medication and directions for use 02/07/2024 Colon cancer screeni ng (ICD-10 - Z12.11) guaiac negative 02/07/2024 Depression screening (ICD-10 - Z13.31) negative screen Plan Of Treatment Pending Test Test Name Order Date Electrocardiogram (EKG) 12/26/2017 Electrocardiogram (EKG) 12/02/2015 Electrocardiogram (EKG) 12/14/2016 CARDIOVASCULAR STRESS TEST 08/27/2024 Liver Panel 08/21/2024 Lipid Panel with Reflex 08/21/2024 Next Appt Details Provider Name:Edi Velásquez ier, 11/12/2024 11:30:00 AM, [address] [place] [address], [address], [phone], Provider Name:Edi Velásquez ier, 02/01/2025 07:30:00 AM, [address] [place] [address], [address], [phone], Provider Name:Edi Velásquez ier, 02/15/2025 11:00:00 AM, [address] [place] [address], [address], [phone], Insurance Providers Payer Name Payer Address Payer Phone Subscriber Number Group Number Insured Name Patient Relationship to Insured Coverage Start Date Coverage End Date MEDICARE NHIC [address] [place] [address] [id number] Gómez Pascual Self - patient is the insured [employer] [id number] [place] [phone] [id number] Gómez Pascual Self - patient is the insured 8 Medical (General) History Medical History History ICD Code colonoscopy 2001.due 201107/23/2012 - Colonoscopy - no further jeovany ting needed per Dr. Lakhani BPH (benign prostatic hyperplasia)
--- OUTSIDE RECORDS SUMMARY | 2024-10-29 13:32 | XMS_ITS ---
Author Organization Edi Ly MD Address [address] [place], [place] [id number] Care Team Providers Care Staffing Manager Name Role Phone Malachi Edi Primary Care [...] kg/m2 10/12/2024 weight is down 6 pounds [facility] e 09-08-24 Encounters Encounter Location Date Provider Diagnosis Edi Ly MD [address] [place] [address] Drive [address] [place], [place] [phone] 10/12/2024 Edi Ly Type 2 diabetes mellitus [...] well after surgery COVID-19 had covid in [facility] Appt Details Follow Up: 4 Weeks, Reason: Provider Name:Edi noguera, 11/12/2024 11:30:00 AM, [address], [address], [place], [place], [phone], Provider Name:Edi Velásquez ier, 02/01/2025 07:30:00 AM, [address], [address], [place], [phone], Provider Name:Edi Velásquez ier, 02/15/2025 11:00:00 AM, [address], [address], [place], [phone], Progress Notes * PASCUALGómez BautistaDOB:[birth year] (84 yo M)Acc No.[id number]:10/12/2024 Patient:?Gómez PASCUAL Provider:?Edi Ly MD :1940???Age:84 Y???Sex:Male Garry e:10/12/2024 Address:[address] [place], [place] [phone] Subjective: * Chief Complaints: * ???PH/TCM * HPI: ???Symptom(s):?patient is a 84yo male here for transitional care management visit followig recent hospitalization. discharge summary has been reviewed and medication reconcilled. * ROS:?General/Constitutional:?Denies?Chills.?Denies?Fatigue.?Denies?Fever.?Denies?Headache.?ENT:?Denies?Sore throat.?Respiratory:?Denies?Cough.?Denies?Shortness of breath at rest.?Denies?Shortness of breath with exertion.?Cardiovascular:?Denies?Chest pain at rest.?Denies?Chest pain with exertion.?Denies?Dizziness.?Denies?Palpitations.?Denies?Shortness of breath.?Gastrointestinal:?Denies?Diarrhea.?Denies?Nausea.? * Medical History:? * Surgical History:? * Hospitalization/Major Diagno stic Procedure:? * Social History:?Tobacco Use:?Tobacco Use/Smoking?Patient is a?nonsmoker,?Additional Findings: Tobacco Non-User?Current non-smoker, currently using no form of tobacco.? * Medications:?TakingAspir-81 81 MG Tablet Delayed Release 1 tablet Orally Once a day Ibuprofen 800 MG Tablet 1 tablet Orally Three times a day Atorvastatin Calcium 20 MG Tablet TAKE 1 TABLET BY MOUTH EVERY DAY FOR 90 DAYS Metoprolol Succinate ER 25 MG Tablet Extended Release 24 Hour 1 tablet Orally bid metFORMIN HCl 500 MG Tablet TAKE 2 TABLETS BY MOUTH TWICE A DAY WITH MEALS ORALLY ONCE A DAY 90 DAYS Taking Aspir-81 81 MG Tablet Delayed Release 1 tablet Orally Once a day Taking Ibuprofen 800 MG Tablet 1 tablet Orally Three times a day Taking Atorvastatin Calcium 20 MG Tablet TAKE 1 TABLET BY MOUTH EVERY DAY FOR 90 DAYS Taking Metoprolol Succinate ER 25 MG Tablet Extended Release 24 Hour 1 tablet Orally bid Taking metFORMIN HCl 500 MG Tablet TAKE 2 TABLETS BY MOUTH TWICE A DAY WITH MEALS ORALLY ONCE A DAY 90 DAYS Not-Taking/PRNTylenol 325 MG Tablet 1 [...] oneyes[Allergies Verified] Objective: * Vitals:?Ht: 69, Wt: 169, BMI [...] covid in hospital?? Clinical Notes: had?? * Procedure Codes:?G2211 Compl ex e/m visit add on * Follow Up:?4 Weeks * * Sign off status: Completed true * Provider:?Edi Ly MD Date:?0 10/12/2024 Generated for Balwinder vaughn/Krystyna/Marcoitting on:?10/29/2024 01:31 PM EDT History and Physical [...]
== END 2024-10-29 12:04 | disposition home or self-care (01) ==
LOC: HO.HCS 11:18
PROVIDERS: PCP Internal Medicine; Visit Provider Internal Medicine Cardiovascular Disease
DX: I25.10 Atherosclerotic heart disease of native coronary artery without angina pectoris (principal)
CPT/HCPCS: 99214; G2211

== ENCOUNTER → 2024-10-29 11:18 | Outpatient (BNVA) | payer MEDICARE, SELFPAY | PROVIDERS: PCP Internal Medicine; Visit Provider Internal Medicine Cardiovascular Disease | DX: I25.10 Atherosclerotic heart disease of native coronary artery without angina pectoris (principal); I42.9 Cardiomyopathy, unspecified; Z95.1 Presence of aortocoronary bypass graft | CPT/HCPCS: 99212 ==

== ENCOUNTER → 2024-12-11 09:43 | Outpatient (REF) | payer MEDICARE, SELFPAY ==
--- NOTE | 2024-12-11 09:45 | CA_ITS ---
Transthoracic Echocardiogram Patient (Last, First, Middle): Gómez Pascual, Gender: Male Date of : 1940 Age: 84 Procedure Date: 12/11/2024 Procedure Type: Transthoracic Echocardiogram Location: OP Height: 177.8 cm Weight: 73.94 kg BSA: 1.91 m2 Heart Rate: 78 bpm BP: 116 / 66 mmHg Junior Data Analyst: SB Referring MD: Joao Caruso MD Symptoms: I42.9 - Cardiomyopathy, unspecified Study Quality: Adequate ECG Rhythm: Sinus Conclusions: - The left ventricular systolic function is mildly decreased. The calculated ejection fraction is 46% by biplane method. Findings Left Ventricle Normal left ventricular cavity size. The left ventricular systolic function is mildly decreased. The calculated ejection fraction is 46% by biplane method. There is no evidence of regional wall motion abnormalities. There is paradoxical septal motion consistent with post-operative status. There is mild septal asymmetric hypertrophy. Pericardium/Pleural There is a small loculated pericardial effusion overlying the right atrium. Prior Study Comparison Changes noted compared to prior study dated: 09/15/2024. Improved LVEF and wall motion. Measurements 2D Linear Measurements IVSd: 1.21 0.6-0.9/0.6-1.0 cm LVIDd: 4.66 3.9-5.3/4.2-5.9 cm LVIDd Index: 2.44 2.4-3.2/2.2-3.1 cm/m2 LVIDs: 3.87 2.0-3.6 cm LVPWd: 0.66 0.7-1.1 cm LV Mass: 184.74 67-162/88-224 g LV Mass Index: 96.72 43-95/49-115 g/m2 LVOT Diam: 2.40 3.0+(-)1.3 cm 2D Systolic Function EF 4C: 49.60 >55% EF 2C: 39.20 >55% EF BiP: 45.50 >55% LVOT LVOT Diam: 2.40 LVOT Area: 4.52 Updated in Other Vendor System with Status of Final Erich Barker MD electronically signed on 12/13/2024 2:10:57 PM with status of Final
--- OUTSIDE RECORDS SUMMARY | 2024-12-11 10:19 | XMS_ITS ---
Author Organization Edi Ly MD Address [address] [place], [place] [phone] Care Team Providers Care Yield Improvement Engineer Name Role Phone Malachi Edi Primary Care [...] kg/m2 11/17/2024 weight is down 7 pounds [facility] e 10-12-24 Encounters Encounter Location Date Provider Diagnosis Edi Ly MD [address] [place] [address] Drive [address] [place], [place] [phone] 11/17/2024 Edi Ly Type 2 diabetes mellitus [...] Date Notes Ketoconazole 2 % 1 application Animal Care Worker ally twice a day for 14 days [...] Next Appt Details Provider Name:Edi Velásquez ier, 12/17/2024 11:30:00 AM, [address], [address], [place], [phone], Provider Name:Edi Velásquez ier, 02/01/2025 07:30:00 AM, [address], [address], [place], [phone], Provider Name:Edi Velásquez ier, 02/15/2025 11:00:00 AM, [address], [address], [place], [phone], Progress Notes * Gómez PASCUALDOB:[birth year] (84 yo M)Acc No.[id number]:11/17/2024 Progress Notes Patient:?Gómez PASCUAL Provider:?Edi Ly MD :1940???Age:84 Y???Sex:Male Garry e:11/17/2024 Address:[address] [place], [place] [phone] Subjective: * Chief Complaints: * ???4 WEEK F/U and check rash on buttAccompanied by * HPI: ???Symptom(s):?patient is? a 84 yo male here for 4 week follow up visit/ going to rehb twice a week/ still draining from wound. no pus. * ROS:?General/Constitutional:?Denies?Chills.?Denies?Fatigue.?Denies?Fever.?Denies?Headache.?ENT:?Denies?Sore throat.?Respiratory:?Denies?Cough.?Denies?Shortness of breath at rest.?Denies?Shortness [...] oneyes[Allergies Verified] Objective: * Vitals:?Ht: 69, Wt: 162, BMI :23.92, BP:112/54, Wt-k.48. weight is down 7 pounds since 10-12-24. * Examination: ???General Examination: ?GENERAL APPEARANCE:?alert, well hydrated, in no distress.?HEAD:?normocephalic.?EYES:?extraocular movement full and smooth.?SKIN:?with a lesion where chest tube was that is healing slowly. has a rash on buttocks in the gluteal cleft.?HEART:?no murmurs, rubs, gallops, regular rate and rhythm.?LUNGS:?no wheezes, rales, rhonchi, good air movement, clear to auscultation bilaterally.? Assessment: * Assessment: 1.?Type 2 diabetes mellitus without complication, without long-term current use of insulin - E11.9 (Primary)???2.?Fungal infection - B49???3.?History of coronary artery bypass graft - Z95.1??? Plan: * Treatment: 2.?Fungal infection? Start Ketoconazole Cream, 2 %, 1 application, Externally, twice a day, 14 days, 60.?? Notes: patient verblized understanding of medications and directions for use?? 3.?History of coronary arter y bypass graft? Notes: no pains?? * Procedure Codes:? * * Sign off status: Completed true * Provider:?Edi Ly MD Date:?0 11/17/2024 Generated for Balwinder vaughn/Krystyna/eTransmitting on:?12/11/2024 10:18 AM EDT History and Physical Notes * [...]
== END ==
LOC: HO.CARD 09:43
PROVIDERS: PCP Internal Medicine; Visit Provider Internal Medicine Cardiovascular Disease
DX: I42.9 Cardiomyopathy, unspecified (principal); Z95.1 Presence of aortocoronary bypass graft
CPT/HCPCS: 93308

== ENCOUNTER → 2024-12-11 09:45 | Outpatient (BNV) | payer MEDICARE, SELFPAY | PROVIDERS: PCP Internal Medicine; Visit Provider Internal Medicine | DX: I31.39 Other pericardial effusion (noninflammatory) (principal); I42.9 Cardiomyopathy, unspecified | CPT/HCPCS: 93308 ==

== ENCOUNTER 2025-01-14 10:41 | Outpatient (AMB) | payer MEDICARE, SELFPAY ==
--- OUTSIDE RECORDS SUMMARY | 2024-11-17 07:30 | XMS_ITS ---
Author Organization Edi Ly MD Address [address] [place], [place] [phone] Care Team Providers Care Pin Worker Name Role Phone Malachi Edi Primary Care [...] kg/m2 11/17/2024 weight is down 7 pounds [facility] e 10-12-24 Encounters Encounter Location Date Provider Diagnosis Edi Ly MD [address] [place] [address] Drive [address] [place], [place] [phone] 11/17/2024 Edi Ly Type 2 diabetes mellitus [...] Date Notes Ketoconazole 2 % 1 application Psychiatrist ally twice a day for 14 days [...] Next Appt Details Provider Name:Edi Velásquez ier, 02/01/2025 07:30:00 AM, [address], [address], [place], [place], [phone], Provider Name:Edi Velásquez ier, 02/15/2025 11:00:00 AM, [address], [address], [place], [place], [phone], Progress Notes * Gómez PASCUALDOB:[birth year] (84 yo M)Acc No.[id number]:11/17/2024 Progress Notes Patient: Gómez BERNAL Provider: Roger Ly MD :1940 A ge:84 Y S ex:Male Date:11/17/2024 Address:[address] [place], [place] [phone] Subjective: * Chief Complaints: * 4 WEEK [...] MD Date: 0 11/17/2024 Generated for Balwinder vaughn/Krystyna/Janice on: 0 01/14/2025 11:22 AM EDT History and Physical Notes * [...]
--- NOTE | 2025-01-14 11:02 | MHC.OFFVIS ---
Vital Signs 01/14/25 11:04 Height 5 ft 10 in Weight 162 lb 4.163 oz BMI 23.3 BP 110/70 Blood Pressure Location Lt brachial Position Sitting Pulse 66 Pulse Source Pulse Oximeter Intake Visit Reasons: 3 months f/up Intake Note: 3mth f/up Regulatory Intern Required: No Accompanied by: Spouse Allergies No Known Allergies Allergy (Verified 07/01/24 02:12) Medication List - Last Reconciled 01/14/25 by Joao Caruso MD aspirin 325 mg PO DAILY atorvastatin 80 mg PO DAILY metformin 1,000 mg PO BID metoprolol succinate ER (Toprol XL) 25 mg PO BID HPI Comments Details: Gómez comes for follow-up. Overall he has been doing well. He had 1 fall over the last few months. His echocardiogram shows improved LV EF to 46%. He has no heart failure symptoms. He has had no lightheadedness, syncope. He denies any anginal symptoms. Complains of numbness in his left precordial area sometimes. Takes all his medications. Currently participate in phase 2 cardiac rehab. As per the he does have some balance issues. 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 Social History Patient Tobacco Use Status: Never used Tobacco Review of Systems Const Denies chills, Denies fatigue, Denies fever(s), Denies frequent falls, Denies weakness, Denies weight gain and Denies weight loss ENT Denies dizziness Card Denies chest pain, Denies leg edema, Denies lightheadedness, Denies palpitations, Denies dyspnea and Denies dyspnea on exertion Resp Denies cough, Denies dyspnea and Denies dyspnea on exertion GI Denies hematochezia Musc Denies abnormal gait, Denies muscle weakness, Denies numbness, Denies radiating pain into limb and Denies tingling Neuro Denies abnormal gait, Denies dizziness, Denies frequent falls, Denies numbness, Denies tingling and Denies weakness Endo Denies fatigue and Denies palpitations Physical Exam Vital Signs: Last Vital Signs Pulse 66 01/14/25 11:04 BP 110/70 01/14/25 11:04 BMI result Body Mass Index 23.3 Const General: cooperative, comfortable, no acute distress, alert and awake Nutritional Appearance: thin and other (Frail appearing) Orientation/consciousness: patient oriented x3 Limitations: no limitations HEENT Head: Yes normocephalic and Yes atraumatic Neck Neck: Yes trachea midline, Yes supple and Yes no JVD Carotids: no bruits Chest Chest palpation & inspection: other (Well-healed sternotomy scar with open wounds at the pacer wire sites ) Resp Effort & Inspection: normal respiratory effort Auscultation: clear to auscultation bilaterally Cardio Jugular venous distension: no JVD Palpation: normal PMI Rate: regular rate Rhythm: regular rhythm Heart sounds: S1 normal heart sound present, S2 normal heart sound present, no click, no gallops, no murmurs and no rubs GI Auscultation: normal bowel sounds Skin General skin exam: no rashes or lesions noted Neuro General: patient oriented x3 and no focal motor deficits Extrem General: Yes no clubbing, cyanosis or edema Psych Appearance: grossly normal Assessment & Plan Assessment & Plan (1) CAD (coronary artery disease): Code(s): I25.10 - Atherosclerotic heart disease of [place] coronary artery without angina pectoris Category: Medical Plan: CAD status post two-vessel coronary artery bypass grafting with resolved symptoms of angina with improved LV ejection fraction. Both of these carry good prognosis and this was discussed with him. Importance of continue aspirin therapy was discussed. Continue metoprolol therapy for neurohormonal modulation as well. Continue high-intensity statin therapy. Advised lipid panel in near future. Target goal LDL less than 60 mg/dL. Encouraged to continue to participate in phase 2 cardiac rehabilitation. Seemed to have some balance issues and have recommended some balance exercises to prevent fall. If continues to have balance issues consider physical therapy for balance evaluation. Will follow up in the clinic in 6 months time, sooner p.r.n.. Thank you for allowing me to partake in his care Orders: Orders Lipid Panel Today I25.10 - Atherosclerotic heart disease of [place] coronary artery without angina pectoris Coding Level of Care Code Est Pt Level 4 (68186) Complex EM visit Add On G2211 Diagnoses CAD (coronary artery disease) I25.10
[2025-01-14 11:04] VITALS: BP 110/70; PULSE 66; BMI 23.3
--- OUTSIDE RECORDS SUMMARY | 2025-01-14 11:22 | XMS_ITS | Patient Health Record ---
Author Organization [facility] Address [address] [place] [address] Care Team Providers Care Regional Coordinator Name Role Phone Edi Ly MD Primary Care Provider Jordan Gonzalez Unavailable [phone] Reason For Referral No Information Medications Medication SIG (Take, Route, Fr equency, Duration) Notes Start Date End Date Status MoviPrep 100 GM as directed Orally once for 1 dose 05/27/2012 Active Problems Problem Type SNOMED Code ICD Code Onset Dates Problem Status W/U Status Risk Notes Problem Blood in stool (727918977) Blood in stool (578.1) Active confirmed Problem Colon cancer screening (V76.51) Active confirmed Plan Of Treatment Future Test Test Name Order Date COLONOSCOPY 05/27/2012 Insurance Providers Payer Name Payer Address Payer Phone Subscriber Number Group Number Insured Name Patient Relationship to Insured Coverage Start Date Coverage End Date [facility] [address] [place] [phone] [id number] EVIE FERRER Self - patient is the insured Medical (General) History Medical History History ICD Code Colonoscopy 09/15/2001-neg. except hemorr hoids Vertigo Denies [place],DM,CVA,Lung disease,renal dise ase Surgical History Surgery Date(Month/Year) skin cancer surgery pilonidal cyst
--- OUTSIDE RECORDS SUMMARY | 2025-01-14 11:23 | XMS_ITS | Patient Health Record ---
Author Organization [facility] Julio jeremy Paul Address [address] [facility] [place] [address] Care Team Providers Care Neurological Physiotherapist Name Role Phone Malachi DELANEY, Edi Primary Care Provider Regino Sun Unavailable [phone] Allergies No Known Allergies Reason For Referral No Information Medications Medication SIG (Take, Route, Frequency, Duration) Notes Start Date End Date Status Cephalexin 500 MG 1 tablet Orally Twic e a day; Duration: 10 day(s) Not-Taking metFORMIN HCl 500 MG 1 tablet with a marcel l Orally twice a day Active Baby Aspirin Active Keflex 500 500 MG 1 capsule Orally jerome ry 12 hrs; Duration: 10 days 01/30/2023 Not-Taking Atorvastatin Calcium 20 MG Orally Active Sulfamethoxazole-TMP DS 800-160 MG Oral; Duration: 10 Not-Takin g predniSONE 10 MG Oral; Duration: 12 Not-Taking LamISIL AT 1 % 1 application to affected area Externally Twice a day to affected areas on feet; Duration: 30 days 11/07/2015 Not-Taki ng Immunizations Vaccine Route Administration Date Status Comme [...] W/U Status Risk Notes Problem Ingrowing nail (L60.0) Active confirmed Problem Chronic ulcer of foot (983639518) Non-pressure chronic ulcer of other part of left foot with fat layer exposed (L97.522) Active confirmed Problem Polyneuropathy due to type 2 diabetes mellitus (732351900) Type 2 diabetes mellitus with diabetic polyneuropathy (E11.42) Active confirmed Problem Type II diabetes mellitus without complication (031073780) Type 2 diabetes mellitus without complications (E11.9) Active confirmed Plan Of Treatment Pending Test Test Name Order Date 65708-Giolydhw Plate 03/27/2017 50477-Bhpcbpbt Plate 05/08/2018 74830-Cbfxjftq Plate 05/20/2018 53777-Ffyxsbjg Plate 11/07/2015 61696-GSH 08/26/2018 20538- Debride <25 sq cm 09/12/2018 77059- Debride <25 sq cm 03/27/2017 86822-VSAAZNO SKIN/TISSUE 11/04/2023 97112 I&D ABSCESS- SIMPLE,SINGLE 017 Insurance Providers Payer Name Payer Address Payer Phone Subscriber Number Group Number Insured Name Patient Relationship to Insured Coverage Start Date Coverage End Date Medicare National Govt [employer] [address] [facility] [place] [address] [id number] Gómez Pascual Self - patient is the insured [employer] Blue Shield [address] [place] [address] [id number] Gómez Pascual Self - patient is the insured Medical (General) History Medical History History ICD Code Gout skin cancer Diabetes CAD covid-19 Measles Mumps Cataracts Surgical History Surgery Date(Month/Year) skin cancer surgery
== END 2025-01-14 11:29 | disposition home or self-care (01) ==
LOC: HO.HCS 10:41
PROVIDERS: PCP Internal Medicine; Visit Provider Internal Medicine Cardiovascular Disease
DX: I25.10 Atherosclerotic heart disease of native coronary artery without angina pectoris (principal)
CPT/HCPCS: 99214; G2211

== ENCOUNTER → 2025-01-14 10:41 | Outpatient (BNVA) | payer MEDICARE, SELFPAY | PROVIDERS: PCP Internal Medicine; Visit Provider Internal Medicine Cardiovascular Disease | DX: I25.10 Atherosclerotic heart disease of native coronary artery without angina pectoris (principal); Z95.1 Presence of aortocoronary bypass graft | CPT/HCPCS: 99212 ==

== ENCOUNTER 2025-02-01 10:15 | Outpatient (REF) | payer MEDICARE, SELFPAY ==
--- OUTSIDE RECORDS SUMMARY | 2024-11-17 07:30 | XMS_ITS ---
Author Organization Edi Ly MD Address [address] [place], [place] [id number] Care Team Providers Care Black Leather Trimmer Name Role Phone Malachi Edi Primary Care Provider [phone] Allergies Allergen (clinical drug ingredient) Drug/Non Drug Allergy documented on EMR Reaction Allergy Type Onset Date Status sulfamethoxazole / trimethoprim Bactrim DS most likely rash from this one Drug Allergy Active REASON FOR VISIT 4 WEEK F/U and check rash on butt, Accompanied by Medications Medication SIG (Take, Route, Frequency, Duration) Notes Start Date End Date Status Ketoconazole 2 % 1 application Externally twice a day for 14 days 11/17/2024 Active Atorvastatin Calcium 80 MG TAKE 1 TABLET BY MOUTH EVERY DAY FOR 90 DAYS Active metFORMIN HCl 500 MG TAKE 2 TABLETS BY M OUTH TWICE A DAY WITH MEALS ORALLY ONCE A DAY 90 DAYS Active Aspir-81 81 MG 1 tablet Orally Once a day for 30 day(s) 06/13/2017 Active Ibuprofen 800 MG 1 tablet Orally Thre e times a day for 30 day(s) 05/09/2015 Active Tylenol 325 MG 1 tablet as needed Orally every 4 hrs Not-Taking Metoprolol Succinate ER 25 MG 1 tablet Orally bid for 30 days 09/08/2024 Active Indomethacin 50 MG 1 capsule with food or milk Orally Three times a day for 10 days 01/24/2017 Not-Taking Colchicine 0.6 MG 1 tablet Orally twic e a day for 30 day(s) 12/14/2016 Not-Taking Virtussin A/C 100-10 MG/5ML 5 ml orally once a day for 90 days 02/01/2022 Not-Taking Problems Problem Type SNOMED Code ICD Code Onset Dates Problem Status W/U Status Risk Notes Problem History of coronary artery bypass graft (Z95.1) Active confirmed Vital Signs Blood pressure systolic 112 mm Hg 11/18/19 Blood pressure diastolic 54 mm Hg 025 Height 69 in 11/17/2024 Weight 162 lbs 11/17/2024 BMI 23.92 kg/m2 11/17/2024 weight is down 7 pounds [facility] e 10-12-24 Encounters Encounter Location Date Provider Diagnosis Edi Ly MD [address] [place] [address] Drive [address] [place], [place] [phone] 11/17/2024 Edi Ly Type 2 diabetes mellitus without complication, without long-term current use of insulin E11.9 ; Fungal infection B49 and History of coronary artery bypass graft Z95.1 Assessments Encounter Date Diagnosis (ICD Code) Assessment Notes Treatment Notes Treatment Clinical Notes Section Notes 11/17/2024 Type 2 diabetes mellitus without complication, without long-term current use of insulin (ICD-10 - E11.9) sugars still doing well, will continue current regiment 11/17/2024 Fungal infection (ICD-10 - B49) patient verblized understanding of medications and directions for use 11/17/2024 History of coronary artery bypass graft (ICD-10 - Z95.1) no pains Plan Of Treatment Medication Medication Name Sig Start Date Stop Date Notes Ketoconazole 2 % 1 application Pbx Mechanic ally twice a day for 14 days 11/17/2024 metFORMIN HCl 500 MG TAKE 2 TABLETS BY M OUTH TWICE A DAY WITH MEALS ORALLY ONCE A DAY 90 DAYS Treatment Notes Assessment Notes Type 2 diabetes mellitus wit hout complication, without long-term current use of insulin sugars still doing well, will continue current regiment Fungal infection patient verblized un derstanding of medications and directions for use History of coronary artery bypass graft no pains Next Appt Details Provider Name:Edi Velásquez ier, 02/15/2025 11:00:00 AM, [address] [facility], [address], [place], [place], [phone], Progress Notes * Gómez PASCUALDOB:[birth year] (84 yo M)Acc No.[id number]:11/17/2024 Progress Notes Patient: Gómez BERNAL Provider: Roger Ly MD :1940 A ge:84 Y S ex:Male Date:11/17/2024 Address:[address] [place], [place] [phone] Subjective: * Chief Complaints: * 4 WEEK F/U and check rash on buttAccompanied by * HPI: S ymptom(s): patient is a 84 yo male here for 4 week follow up visit/ going to rehb twice a week/ still draining from wound. no pus. * ROS: G eneral/Constitutional: Denies C hills. D enies F atigue. D enies F ever. D enies H eadache. E NT: Denies S ore throat. R espiratory: Denies C ough. D enies S hortness of breath at rest. D enies S hortness of breath with exertion. C ardiovascular: Denies C hest pain at rest. D enies C hest pain with exertion. D enies D izziness. D enies P alpitations. D enies S hortness of breath. G astrointestinal: Denies D iarrhea. D enies N ausea. * Medical History: * Surgical History: * Hospitalization/Major Diagno stic Procedure: * Medications: T akingAspir-81 81 MG Tablet Delayed Release 1 tablet Orally Once a day Ibuprofen 800 MG Tablet 1 tablet Orally Three times a day Atorvastatin Calcium 80 MG Tablet TAKE 1 TABLET BY MOUTH [...] Three times a day Taking Atorvastatin Calcium 80 MG Tablet TAKE 1 TABLET BY MOUTH [...] reviewed and reconciled with the patient * Allergies: B actrim DS: most likely rash from this oneyes[Allergies Verified] Objective: * Vitals: H t: 69, Wt: 162, BMI:23.92, BP:112/54, Wt-k.48. weight is down 7 pounds since 10-12-24. * Examination: G eneral Examination: GENERAL APPEARANCE: a lert, well hydrated, in no distress.? HEAD: n ormocephalic. EYES: e xtraocular movement full and smooth. SKIN: w ith a lesion where chest tube was that is healing slowly. has a rash on buttocks in the gluteal cleft. HEART: n o murmurs, rubs, gallops, regular rate and rhythm.? LUNGS: n o wheezes, rales, rhonchi, good air movement, clear to auscultation bilaterally. Assessment: * Assessment: 1. T ype 2 diabetes mellitus without complication, without long-term current use of insulin - E11.9 (Primary) 2 . F ungal infection - B49 3 . H istory of coronary artery bypass graft - Z95.1 Plan: * Treatment: 2. F ungal infection Start Ketoconazole Cream, 2 %, 1 application, Externally, twice a day, 14 days, 60. Notes: patient verblized understanding of medications and directions for use 3. H istory of coronary artery bypass graft Notes: no pains * Procedure Codes: * * Sign off status: Completed true * Provider: Roger Ly MD Date: 0 11/17/2024 Generated for Balwinder vaughn/Krystyna/Marcoitting on: 0 02/01/2025 11:18 AM EDT History and Physical Notes * HPI (History of Present Illness) Category Sub-Category Detail Notes Category Not es Symptom(s) patient is a 84 yo male here for 4 week follow up visit/ going to rehb twice a week/ still draining from wound. no pus. Examination Category Sub-Category Detail Notes Category Not es General Examination GENERAL APPEARANCE: alert, w ell hydrated, in no distress HEAD: normocephalic EYES: extraocular movement full and smooth HEART: no murmurs, rubs, ga llops, regular rate and rhythm LUNGS: no wheezes, rales, r honchi, good air movement, clear to auscultation bilaterally SKIN: with a lesion where chest tube was that is healing slowly. has a rash on buttocks in the gluteal cleft
[2025-02-01 10:24] LABS: MANUAL DIFF FLAG NO
[2025-02-01 10:52] LABS: Hematocrit 40.6 % (42.0-52.0); Hemoglobin 13.3 g/dl (14.0-18.0); Imm Gran Abs Auto 0.01 X10*3/uL (0.00-0.03); Imm Gran Pct Auto 0.1 % (0.0-0.4); Lymphocytes Absolute Auto 3.4 X10*3/uL (1.2-4.9); Mean Corpuscular HGB Conc 32.8 g/dl (31.0-36.0); Mean Corpuscular Hemoglobin 30.8 pg (27.0-33.0); Mean Corpuscular Volume 94.0 fL (80.0-98.0); NRBC Abs Auto 0.000 X10*3/uL (0.0-0.012); NRBC Pct Auto 0.0 /100WBC (0.0-0.2); Platelet Count 190 X10*3/uL (160-400); Red Blood Count 4.32 X10*6/uL (4.60-5.80); White Blood Count 7.2 X10*3/uL (4.8-10.8)
[2025-02-01 10:54] LABS: Appearance Urine Clear; Glucose Urine UA Negative (Negative); PH 5.0 (5.0-9.0); Specific Gravity - Urine 1.020 (1.005-1.025)
[2025-02-01 11:03] LABS: Microalbum/Creatinine Ratio Ur 9.2 ug/mg cr (<30)
[2025-02-01 11:12] LABS: Alanine Aminotransferase 40 U/L (0-40); Albumin Level 4.1 g/dL (3.5-5.0); Alkaline Phosphatase 63 U/L (39-117); Anion Gap 12 (12-20); Aspartate Amino Transferase 38 U/L (5-37); Blood Urea Nitrogen 22 mg/dL (9-16); Calcium 9.3 mg/dL (8.4-10.2); Carbon Dioxide 25 mmol/L (22-29); Chloride 111 mmol/L (96-108); Cholesterol 103 mg/dL (<200); Estimated Glomerular Filt Rate > 60; HDL Cholesterol 35 mg/dL (>40); Potassium 4.3 mmol/L (3.3-5.1); Sodium 144 mmol/L (135-145); Total Protein 7.2 g/dL (6.5-8.0); Triglycerides 125 mg/dL (<150)
--- OUTSIDE RECORDS SUMMARY | 2025-02-01 11:19 | XMS_ITS | Clinical Summary ---
Author Organization [facility] Address [address] [address] Phone Care Team Providers Care Clinical Psychology Teacher Name Role Phone Edi Ly MD Primary Care Provider Allergies No known active allergies Medications BABY ASPIRIN ORAL Baby Aspirin Active atorvastatin (LIPITOR) 20 MG tablet daily. Active fluocinolone (SYNALAR) 0.01 % external solution PLEASE SEE ATTACHED FOR DETAILED DIRECTIONS Active metFORMIN (GLUCOPHAGE) 500 MG tablet 1 tablet with a meal Orally twice a day Active Social History Tobacco Use Types Packs/Day Years Used Date Smoking Tobacco: Never Education Answer Date Recorded Are you interested in more education? Not on nayeli e 11/02/2022 Are you concerned about learning? Not on file 11/02/2022 No 11/02/2022 No 11/02/2022 Digital Access Answer Date Recorded No 12/03/2022 No 12/03/2022 No 12/03/2022 Reliable internet access at home? Not on file 12/03/2022 Device with a working camera? Not on file Sex and Gender Information Value Date Recorded Sex Assigned at Not on file Legal Sex Male 8:13 PM EST Gender Identity Not on file Sexual Orientation Not on file Last Filed Vital Signs Vital Sign Reading Time Taken Comments Blood Pressure 142/82 02/05/2013 12:04 PM EDT Pulse 68 02/05/2013 12:04 PM EDT Temperature 36.7 C (98.1 F) 02/05/2013 12:04 PM EDT Respiratory Rate 16 02/05/2013 12:04 PM EDT Oxygen Saturation - - Inhaled Oxygen Concentration - - Weight 85.3 kg (188 lb) 02/05/2013 12:04 PM EDT Height 175.6 cm (5' 9.13 ) 01/07/2013 3:50 PM ED T Body Mass Index 27.66 01/07/2013 3:50 PM EDT Plan of Treatment Health Maintenance Due Date Last Done Comments Adult Td,Tdap Booster 1940 CREATININE LEVEL 1940 DEPRESSION SCREENING 1952 ZOSTER VACCINES (1 of 2) 1990 RSV VACCINE (1 - 1-dose 75+ series) 2015 COVID-19 VACCINE (3 - 2023-2 5 season) 2024 08/28/2020, 08/08/2020 PNEUMOCOCCAL VACCINES (50+ years) Completed 01/06/2019, 05/28/2016 HEPATITIS A VACCINES Aged Out No long er eligible based on patient's age to complete this topic HIB VACCINES Aged Out No longer eligi ble based on patient's age to complete this topic MENINGOCOCCAL VACCINES (ACWY) Aged Out No longer eligible based on patient's age to complete this topic MENINGOCOCCAL VACCINES (B) Aged Out N o longer eligible based on patient's age to complete this topic Medical Devices Not on file Insurance MEDICARE PART A & B [facility] MEDEX SUPPLEMENT MEDICARE PART A & B [employer] MEDEX SUPPLEMENT MEDICARE PART A & B [employer] MEDEX SUPPLEMENT MEDICARE PART A & B [employer] CR[employer] MEDEX SUPPLEMENT MEDICARE PART A & B [employer] MEDEX SUPPLEMENT MEDICARE PART A & B [employer] MEDEX SUPPLEMENT Advance Directives For more information, please contact: [phone] (9AM - 5PM [facility], Saturday-Saturday) Documents on File Type Date Recorded Patient Customer Service Consultant Expl anation [facility] AM [facility] 11/19/2012 12:00 AM Care Teams Clinical Psychology Teacher Relationship Specialty Start Date End Date Eid Ly MD [address] [place] [address] [place] [address] PCP - General 11/11/14 Additional Source Comments The information contained in this document represents components of the legal health record. It is not the complete legal health record.[facility]
--- OUTSIDE RECORDS SUMMARY | 2025-02-01 11:19 | XMS_ITS | Patient Health Record ---
Author Organization [facility] Address [address] [place] [address] Care Team Providers Care Telemarketing Fundraiser Name Role Phone Edi Ly MD Primary Care Provider Jordan Gonzalez Unavailable [phone] Reason For Referral No Information Medications Medication SIG (Take, Route, Fr equency, Duration) Notes Start Date End Date Status MoviPrep 100 GM as directed Orally once for 1 dose 05/27/2012 Active Problems Problem Type SNOMED Code ICD Code Onset Dates Problem Status W/U Status Risk Notes Problem Blood in stool (239046184) Blood in stool (578.1) Active confirmed Problem Colon cancer screening (585354202) Colon cancer screening (V76.51) Active confirmed Plan Of Treatment Future Test Test Name Order Date COLONOSCOPY 05/27/2012 Insurance Providers Payer Name Payer Address Payer Phone Subscriber Number Group Number Insured Name Patient Relationship to Insured Coverage Start Date Coverage End Date [facility] [address] [place] [phone] [id number] EIVE FERRER Self - patient is the insured Medical (General) History Medical History History ICD Code Colonoscopy 09/15/2001-neg. except hemorr hoids Vertigo Denies [place],DM,CVA,Lung disease,renal dise ase Surgical History Surgery Date(Month/Year) skin cancer surgery pilonidal cyst
--- OUTSIDE RECORDS SUMMARY | 2025-02-01 11:19 | XMS_ITS | Patient Health Record ---
Author Organization [facility] Julio jeremy Paul Address [address] [facility] [place] [address] Care Team Providers Care Clip And Hanger Attacher Name Role Phone Malachi DELANEY, Edi Primary Care Provider Regino Sun Unavailable [phone] Allergies No Known Allergies Reason For Referral [...] Active confirmed Problem Chronic ulcer of foot (311475667) Non-pressure chronic ulcer of other part of left foot with fat layer exposed (L97.522) Active confirmed Problem Polyneuropathy due to type 2 diabetes mellitus (610104162) Type 2 diabetes mellitus with diabetic polyneuropathy (E11.42) Active confirmed Problem Type II diabetes mellitus without complication (026507076) Type 2 diabetes mellitus without complications (E11.9) Active confirmed Plan Of Treatment Pending Test Test Name Order Date 39294-Unvtkjel Plate 03/27/2017 37019-Oucbfwed Plate 05/08/2018 77810-Rdbljcov Plate 05/20/2018 82114-Jxtseuzo Plate 11/07/2015 62726-SBF 08/26/2018 32363- Debride <25 sq cm 09/12/2018 58731- Debride <25 sq cm 03/27/2017 57392-GGHNTLE SKIN/TISSUE 11/04/2023 95125 I&D ABSCESS- SIMPLE,SINGLE 017 Insurance Providers Payer Name Payer Address Payer Phone Subscriber Number Group Number Insured Name Patient Relationship to Insured Coverage Start Date Coverage End Date Medicare National Govt [employer] [address] [facility] [address] [id number] Gómez Pascual Self - patient is the insured [employer] [address] [place] [address] [id number] Gómez Pascual Self - patient is the insured Medical (General) History Medical History History ICD Code Gout skin cancer Diabetes CAD covid-19 Measles Mumps Cataracts Surgical History Surgery Date(Month/Year) skin cancer surgery
[2025-02-01 11:25] LABS: PSA,Total (Free>4and<10) 0.77 ng/mL (0.00-4.00)
== END 2025-02-01 10:16 | disposition home or self-care (01) ==
LOC: HO.LNP 10:15
PROVIDERS: Visit Provider Internal Medicine
DX: Z12.5 Encounter for screening for malignant neoplasm of prostate (principal); I25.10 Atherosclerotic heart disease of native coronary artery without angina pectoris; E11.9 Type 2 diabetes mellitus without complications; E83.52 Hypercalcemia; E78.00 Pure hypercholesterolemia, unspecified
CPT/HCPCS: 80053; 80061; 80076; 81001; 82043; 82248; 82570; 84153; 85025

== ENCOUNTER 2025-04-20 07:30 | Outpatient (REF) | payer MEDICARE, SELFPAY ==
--- OUTSIDE RECORDS SUMMARY | 2025-02-01 03:30 | XMS_ITS ---
Author Organization Edi Ly MD Address [address] [place], [place] [id number] Care Team Providers Care Supervisor Modern Languages Name Role Phone Edi Ly Primary Care Provider [phone] Results Component Value Reference Range Notes Complete Blood Count Auto Di ff Reviewed date:02/15/2025 12:11:26 PM Interpretation:03-04-2025 Performing Lab:[facility], [address] [place] [phone] Notes/Report: White Blood Count 7.2 4.8-10.8 X10*3/uL Red Blood Count 4.32 4.60-5.80 X10*6/uL Hemoglobin 13.3 14.0-18.0 g/dl Hematocrit 40.6 42.0-52.0 % Mean Corpuscular Volume 94.0 80.0-98.0 fL Mean Corpuscular Hemoglobin 30.8 27.0-33.0 pg Mean Corpuscular HGB Conc 32.8 31.0-36.0 g/dl Red Cell Distribution Width 13.6 11.0-16.0 % Platelet Count 190 160-400 X10*3/uL Mean Platelet Volume 12.3 9.4-12.4 fL Neutrophils Percent Auto 39.4 45-73 % Imm Gran Pct Auto 0.1 0.0-0.4 % Lymphocytes Percent Auto 46.9 20-40 % Monocytes Percent Auto 10.4 2-11 % Eosinophils Percent Auto 2.8 0-4 % Basophils Percent Auto 0.4 0-2 % NRBC Pct Auto 0.0 0.0-0.2 /100WBC Neutrophils Absolute Auto 2.8 2.0-8.3 x10*3/u L Imm Gran Abs Auto 0.01 0.00-0.03 X10*3/uL Lymphocytes Absolute Auto 3.4 1.2-4.9 X10*3/u L Monocytes Absolute Auto 0.8 0.1-1.2 X10*3/uL Eosinophils Absolute Auto 0.2 0.0-0.4 X10*3/u L Basophils Absolute Auto 0.0 0.0-0.2 X10*3/uL NRBC Abs Auto 0.000 0.0-0.012 X10*3/uL Comprehensive [place]. Panel Fa st Reviewed date:02/01/2025 05:38:01 PM Interpretation: Performing Lab:[facility], [address] [place] [phone] Notes/Report: Sodium 144 135-145 mmol/L Potassium 4.3 3.3-5.1 mmol/L Chloride 111 96-108 mmol/L Carbon Dioxide 25 22-29 mmol/L Anion Gap 12 12-20 Blood Urea Nitrogen 22 9-16 mg/dL Creatinine 1.00 0.5-1.4 mg/dL Estimated Glomerular Filt Rate > 60 Chronic Kidney Disease: Estimated GFR < 60 mL/min/1.73m2 Severe Kidney Disease: Estimated GFR < 15 mL/min/1.73m2 Glucose Fasting 131 60-99 mg/dL A fasting glucose of 126 mg/dl or greater on more than one occasion is considered diagnostic of diabetes. Calcium 9.3 8.4-10.2 mg/dL Bilirubin Total 0.6 0.0-1.0 mg/dL Aspartate Amino Transferase 38 5-37 U/L Alanine Aminotransferase 40 0-40 U/L Total Protein 7.2 6.5-8.0 g/dL Albumin Level 4.1 3.5-5.0 g/dL Alkaline Phosphatase 63 39-117 U/L Liver Panel Reviewed date:02/01/2025 05:34:04 PM Interpretation: Performing Lab:[facility], [address] [place] [phone] Notes/Report: Bilirubin Direct 0.2 0.0-0.5 mg/dL Lipid Panel Reviewed date:02/01/2025 12:31:05 PM Interpretation: Performing Lab:[facility], [address] [place] [phone] Notes/Report: Triglycerides 125 <150 mg/dL Desirable Triglyceride: less than 150 mg/dL Borderline High Triglyceride 150-199 mg/dL High Triglyceride: 200-499 mg/dL Very High Triglyceride: greater than or equal to 5OO mg/dL Cholesterol 103 <200 mg/dL Desirable Cholesterol: less than 200 mg/dL Borderline High Cholesterol: 200-239 mg/dL High Cholesterol: greater than 239 mg/dL LDL Cholesterol Calculated 43 <100 mg/dL Desirable LDL: less than 100 mg/dL Near Optimal/Above Optimal LDL: 110-129 mg/dL Borderline High LDL: 130-159 mg/dL High LDL: 160-189 mg/dL Very High LDL: greater than or equal to 190 mg/dL HDL Cholesterol 35 >40 mg/dL Desirable HDL: greater than 40 mg/dL Note: This HDL assay may give artificially low results in patients with liver disease. PSA,Total (Free>4and<10) Reviewed date:02/01/2025 12:29:58 PM Interpretation: Performing Lab:[facility], [address] [place] [phone] Notes/Report: PSA,Total (Free>4and<10) 0.77 0.00-4.00 ng/mL A Free PSA was not [...] Chemiluminescent Microparticle Immunoassay (CMIA) Microalbumin, Random Reviewed date:02/01/2025 12:46:02 PM Interpretation: Performing Lab:[address] [phone] Notes/Report: Creatinine Urine 118.69 Microalbumin Urine 11.0 Microalbum/Creatinine Ratio Ur 9.2 <30 ug/mg cr Albumin/Creatinine Ratio Reference Ranges: Normal: < 30 ug/mg creatinine Microalbuminuria: 30 - 300 ug/mg creatinine Clinical Albuminuria: > 300 ug/mg creatinine UA ClnCatch+Micro w/rflx Cul t Reviewed date:02/02/2025 04:25:14 PM Interpretation: Performing Lab:[facility], [address] [place] [phone] Notes/Report: [id number] Urine, Clean Catch Color Urine Yellow Appearance Urine Clear PH 5.0 5.0-9.0 Glucose Urine UA Negative Negative mg/dL Urine Blood Negative Negative Specific [place] - Urine 1.020 1.005-1.025 Urine Protein Negative Neg-Trace mg/dL Urine Ketones Negative Negative mg/dL Nitrite Urine Negative Negative Leukocyte Esterase Urine Negative Negative RBC Urine 0-2 0-2 /HPF WBC Urine 0-5 0-5 /HPF Squamous Epithelial Cell Urine 0-2 0-2 /HPF Bacteria Urine None Seen None Seen Hyaline Casts Urine 0-2 0-2 /LPF REASON FOR VISIT FASTING LABS Medications Medication SIG (Take, Route, Frequency, Duration) Notes Start Date End Date Status metFORMIN HCl 500 MG TAKE 2 TABLETS BY M OUTH TWICE A DAY WITH MEALS ORALLY ONCE A DAY 90 DAYS Active Tylenol 325 MG 1 tablet as needed Orally every 4 hrs Active Virtussin A/C 100-10 MG/5ML 5 ml orally once a day for 90 days 02/01/2022 Not-Taking Indomethacin 50 MG 1 capsule with food or milk Orally Three times a day for 10 days 01/24/2017 Not-Taking Colchicine 0.6 MG 1 tablet Orally twic e a day for 30 day(s) 12/14/2016 Not-Taking Ibuprofen 800 MG 1 tablet Orally Thre e times a day for 30 day(s) 05/09/2015 Not-Taking Atorvastatin Calcium 80 MG TAKE 1 TABLET BY MOUTH EVERY DAY FOR 90 DAYS Active Metoprolol Succinate ER 25 MG 1 tablet Orally bid for 30 days 09/08/2024 Active Ketoconazole 2 % 1 application Externally twice a day for 14 days 11/17/2024 Active Aspir-81 81 MG 1 tablet Orally Once a day for 30 day(s) 06/13/2017 Active Encounters Encounter Location Date Provider Diagnosis Edi Ly MD [address] [place] [phone] 02/01/2025 Edi Ly Type 2 diabetes brunilda itus without complication, without long-term current use of insulin E11.9 ; Pure hypercholesterolemia E78.00 and Hypercalcemia E83.52 Assessments Encounter Date Diagnosis (ICD Code) Assessment Notes Treatment Notes Treatment Clinical Notes Section Notes 02/01/2025 Type 2 diabetes brunilda itus without complication, without long-term current use of insulin (ICD-10 - E11.9) 02/01/2025 Pure hypercholesterolemia (ICD-10 - E78.00) 02/01/2025 Hypercalcemia (ICD-1 0 - E83.52) Plan Of Treatment Pending Test Test Name Order Date Calcium 02/01/2025 Next Appt Details Provider Name:Edi noguera, 06/21/2025 10:00:00 AM, [address] [place] [address], [phone], Provider Name:Edi noguera, 08/20/2025 07:15:00 AM, [address] [place] [address], [phone], Provider Name:Edi noguera, 02/08/2026 07:00:00 AM, [address] [place] [address], [phone], Provider Name:Edi noguera, 02/15/2026 08:30:00 AM, [address] [place] [address], [phone], Progress Notes * Marlon PASCUALB:[birth year] (84 yo M)Acc No.[id number]:02/01/2025 Progress Note Patient: S Gómez HENDRICKS Provider: Roger Ly MD :1940 A ge:84 Y S ex:Male Date:02/01/2025 Address:[address] [place], [place] [id number] Subjective: * Chief Complaints: * 1 . FASTING LABS. * Medical History: * Medications: T aking Aspir-81 81 MG Tablet Delayed Release 1 tablet Orally Once a day , Taking Atorvastatin Calcium 80 MG Tablet TAKE 1 TABLET BY MOUTH EVERY DAY FOR 90 DAYS , Taking Metoprolol Succinate ER 25 MG Tablet Extended Release 24 Hour 1 tablet Orally bid , Taking Ketoconazole 2 % Cream 1 application Externally twice a day , Taking Tylenol 325 MG Tablet 1 tablet as needed Orally every 4 hrs , Taking metFORMIN HCl 500 MG Tablet TAKE 2 TABLETS BY MOUTH TWICE A DAY WITH MEALS ORALLY ONCE A DAY 90 DAYS , Not-Taking/PRN Ibuprofen 800 MG Tablet 1 tablet Orally Three times a day , Not-Taking/PRN Virtussin A/C 100-10 MG/5ML Solution 5 ml orally once a day , Not-Taking/PRN Indomethacin 50 MG Capsule 1 capsule with food or milk Orally Three times a day , Not-Taking/PRN Colchicine 0.6 MG Tablet 1 tablet Orally twice a day Objective: * Vitals: Assessment: * Assessment: 1. T ype 2 diabetes mellitus without complication, without long-term current use of insulin - E11.9 (Primary) 2 . P ure hypercholesterolemia - E78.00 3 . H ypercalcemia - E83.52 Plan: * Treatment: 2. P ure hypercholesterolemia L AB: Calcium L AB: Complete Blood Count Auto Diff (Collection Date & Time - 02/01/2025 07:30 AM) L AB: Comprehensive [place]. Panel Fast (Collection Date & Time - 02/01/2025 07:30 AM) L AB: Liver Panel (Collection Date & Time - 02/01/2025 07:30 AM) L AB: Lipid Panel (Collection Date & Time - 02/01/2025 07:30 AM) L AB: PSA,Total (Free>4and<10) (Collection Date & Time - 02/01/2025 07:30 AM) L AB: Microalbumin, Random (Collection Date & Time - 02/01/2025 07:30 AM) L AB: UA ClnCatch+Micro w/rflx Cult (Collection Date & Time - 02/01/2025 07:30 AM) 3. H ypercalcemia L AB: Calcium L AB: Complete Blood Count Auto Diff (Collection Date & Time - 02/01/2025 07:30 AM) L AB: Comprehensive [place]. Panel Fast (Collection Date & Time - 02/01/2025 07:30 AM) L AB: Liver Panel (Collection Date & Time - 02/01/2025 07:30 AM) L AB: Lipid Panel (Collection Date & Time - 02/01/2025 07:30 AM) L AB: PSA,Total (Free>4and<10) (Collection Date & Time - 02/01/2025 07:30 AM) L AB: Microalbumin, Random (Collection Date & Time - 02/01/2025 07:30 AM) L AB: UA ClnCatch+Micro w/rflx Cult (Collection Date & Time - 02/01/2025 07:30 AM) * Procedure Codes: 3 6415 VENIPUNCT, ROUTINE* * * The named appointment provid er may or may not be the originator of this progress note, and it is not deemed complete until electronically signed by the appointment provider. Sign off status: Pending * Provider: Roger Ly MD Date: 0 02/01/2025 Generated for Balwinder vaughn/Krystyna/Janice on: 1 12:55 PM EDT
--- OUTSIDE RECORDS SUMMARY | 2025-02-11 10:21 | XMS_ITS ---
Author Organization Edi Ly MD Address [address] [place] [phone] Care Team Providers Care Qa Tech Name Role Phone MalachiNancyn Primary Care Provider REASON FOR VISIT Stress test order * Encounters Encounter Location Date Provider Diagnosis Edi Ly MD [address] [facility] [address] [place] [phone] 02/11/2025 Edi Ly Plan Of Treatment Next Appt Details Provider Name:Edi noguera, 06/21/2025 10:00:00 AM, [address] [place] [address], Suite [facility], [place], [place], [phone], Provider Name:Edi noguera, 08/20/2025 07:15:00 AM, [address] [place] [address], Suite [facility], [place], [phone], Provider Name:Edi noguera, 02/08/2026 07:00:00 AM, [address], [address], [place], [phone], Provider Name:Edi noguera, 02/15/2026 08:30:00 AM, [address], [address], [place], [phone], Progress Notes * Gómez PASCUALDOB:[birth year] (84 yo M)Acc No.[id number]:02/11/2025 Patient: Gómez BERNAL :1940 A ge:84 Y S ex:Male Address:[address] [place] [address] * true * Date: Generated for Balwinder vaughn/Krystyna/eTsukumarsmitting on: 12:55 PM EDT
--- OUTSIDE RECORDS SUMMARY | 2025-02-15 07:00 | XMS_ITS ---
Author Organization Edi Ly MD Address [address] [place], [place] [id number] Care Team Providers Care Body And Fender Mechanic Apprentice Name Role Phone RahulNancy spanglern Primary Care Provider Allergies Allergen (clinical drug ingredient) Drug/Non Drug Allergy documented on EMR Reaction Allergy Type Onset Date Status sulfamethoxazole / trimethoprim Bactrim DS most likely rash from this one Drug Allergy Active Results Component Value Reference Range Notes Occult Blood, Stool, Guaiac Reviewed date:02/15/2025 11:57:00 AM Interpretation:Negative Performing Lab: Notes/Report: Negative Occult Blood, Stool, Guaiac Neg REASON FOR VISIT review labs Medications Medication SIG (Take, Route, Frequency, Duration) Notes Start Date End Date Status Colchicine 0.6 MG 1 tablet Orally twic e a day for 30 day(s) 12/14/2016 Not-Taking Indomethacin 50 MG 1 capsule with food or milk Orally Three times a day for 10 days 01/24/2017 Not-Taking Atorvastatin Calcium 80 MG TAKE 1 TABLET BY MOUTH EVERY DAY FOR 90 DAYS Active Virtussin A/C 100-10 MG/5ML 5 ml orally once a day for 90 days 02/01/2022 Not-Taking Ibuprofen 800 MG 1 tablet Orally Thre e times a day for 30 day(s) 05/09/2015 Not-Taking Metoprolol Succinate ER 25 MG 1 tablet Orally bid for 30 days 09/08/2024 Active Ketoconazole 2 % 1 application Externally twice a day for 14 days 11/17/2024 Active metFORMIN HCl 500 MG TAKE 2 TABLETS BY M OUTH TWICE A DAY WITH MEALS ORALLY ONCE A DAY 90 DAYS Active Aspir-81 81 MG 1 tablet Orally Once a day for 30 day(s) 06/13/2017 Active Tylenol 325 MG 1 tablet as needed Orally every 4 hrs Active Social History Tobacco Use: Social History [...] Problem Status W/U Status Risk Notes Problem Lymphocytosis ([id number]) Lymphocytosis (D72.820) Active confirmed Vital Signs Blood pressure systolic 120 mm Hg 02/16/20 25 Blood pressure diastolic 64 mm Hg 025 Height 69 in 02/15/2025 Weight 161 lbs 02/15/2025 BMI 23.77 kg/m2 02/15/2025 weight is down 2 [pounds sin ce 12-17-24 Encounters Encounter Location Date Provider Diagnosis Edi Ly MD [address] [place] [address] [place] [phone] 02/15/2025 Edi Ly 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 and neck C44.41 ; Type 2 diabetes mellitus without complication, without long-term current use of insulin E11.9 ; History of coronary artery bypass graft Z95.1 ; History of melanoma Z85.820 ; Lymphocytosis D72.820 ; Pure hypercholesterolemia E78.00 ; Colon cancer screening Z12.11 and Depression screening Z13.31 Assessments Encounter Date Diagnosis (ICD Code) Assessment Notes Treatment Notes Treatment Clinical Notes Section Notes 02/15/2025 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 and neck (ICD-10 - C44.41) followed every 3 months by derm 02/15/2025 Type 2 diabetes brunilda itus without complication, without long-term current use of insulin (ICD-10 - E11.9) doing well, will continue current regiment 02/15/2025 History of coronary artery bypass graft (ICD-10 - Z95.1) doing well post op 02/15/2025 History of melanoma (ICD-10 - Z85.820) followed by derm 02/15/2025 Lymphocytosis (ICD-1 0 - D72.820) stable, will continue to monitor, future labs pending 02/15/2025 Pure hypercholesterolemia (ICD-10 - E78.00) stable, will continue current regiment 02/15/2025 Colon cancer screeni ng (ICD-10 - Z12.11) guaiac negative 02/15/2025 Depression screening (ICD-10 - Z13.31) negative screen Plan Of Treatment Medication Medication Name Sig Start Date Stop Date Notes Atorvastatin Calcium 80 MG TAKE 1 TABLET BY MOUTH EVERY DAY FOR 90 DAYS metFORMIN HCl 500 MG TAKE 2 TABLETS BY M OUTH TWICE A DAY WITH MEALS ORALLY ONCE A DAY 90 DAYS Treatment Notes Assessment Notes Basal cell carcinoma of mult iple sites of head and neck followed every 3 months by derm Type 2 diabetes mellitus wit hout complication, without long-term current use of insulin doing well, will continue current regiment History of coronary artery bypass graft doing well post op History of melanoma followed by derm Lymphocytosis stable, will continu e to monitor, future labs pending Pure hypercholesterolemia stable, will c ontinue current regiment Colon cancer screening guaiac negative Depression screening negative screen Next Appt Details Follow Up: 4 Months, Reason: Provider Name:Edi noguera, 06/21/2025 10:00:00 AM, [address] [place] [address], [address] [place] [address], [phone], Provider Name:Edi noguera, 08/20/2025 07:15:00 AM, [address] [place] [address], [address], [phone], Provider Name:Edi noguera, 02/08/2026 07:00:00 AM, [address] [place] [address], [address], [phone], Provider Name:Edi Velásquez ier, 02/15/2026 08:30:00 AM, [address], [address], [place], [phone], Progress Notes * Gómez PASCUALDOB:[birth year] (84 yo M)Acc No.[id number]:02/15/2025 Patient: Gómez BERNAL Provider: Roger Ly MD :1940 A ge:84 Y S ex:Male Date:02/15/2025 Address:[address] [place] [address] [place], [id number] Subjective: * Chief Complaints: * R eview labs * HPI: D epression Screening: PHQ-9 L ittle interest or pleasure in doing things N ot at all, F eeling down, depressed, or hopeless N ot at all, T rouble falling or staying asleep, or sleeping too much N ot at all, F eeling tired or having little energy N ot at all, P oor appetite or overeating N ot at all, F eeling bad about yourself or that you are a failure, or have let yourself or your family down N ot at all, T rouble concentrating on things, such as reading the newspaper or watching television N ot at all, M oving or speaking so slowly that other people could have noticed; or the opposite, being so fidgety or restless that you have been moving around a lot more than usual N ot at all, T houghts that you would be better off or of hurting yourself in some way N ot at all, T otal Score 0 . I nterpretation and Intervention D epression Screening Findings N egative, F ollow-Up for Depression : review of PHQ-9 found negative result, no follow-up needed. C ommunication Needs: Communication Needs D oes the patient have a hearing impairment N o, D oes the patient have a vision impairment? Y es, I f yes, what is the vision impairment? G lasses, D oes the patient have a cognition impairment? N o. F all Risk: History H ave you had any falls with injury in the past year? N o, H ave you had two or more falls in the past year? N o. S CM Questions: SDOH Questions I n the past year have you been worried about losing housing? N o, I n the past year have you or any family members you live with been unable to get any of the following when it was really needed? Check all that apply: N one. S ymptom(s): patient is a 84 yo male here for visit with review of recent labs and follow up of chronic issues,, has not had the eye problem happen again. had covid when he was in the hospital. any time he eats nose runs. * ROS: G eneral/Constitutional: Change in appetite d enies. C hills d enies. F ever d enies. O phthalmologic: Blurred vision d enies. D ischarge d enies. P ain d enies. E NT: Decreased hearing d enies. S ore throat d enies.?Swollen glands d enies. E ndocrine: Cold intolerance d enies. E xcessive thirst d enies. H eat intolerance d enies. W eight loss d enies. R espiratory: Cough d enies. S hortness of breath at rest d enies. S hortness of breath with exertion d enies. W heezing d enies. C ardiovascular: Chest pain at rest d enies. C hest pain with exertion?denies. I rregular heartbeat d enies. S hortness of breath d enies. ? G astrointestinal: Abdominal pain d enies. C hange in bowel habits d enies. D iarrhea d enies. N ausea d enies. R ectal bleeding d enies. V omiting d enies . G enitourinary: Blood in urine d enies. D ifficulty urinating d enies. F requent urination d enies. M usculoskeletal: Painful joints d enies. W eakness d enies. ? S kin: Dry skin d enies. I tching d enies. D enies?Mole(s), changes in moles, new moles or any lesions of concern. D enies P hotosensitivity. R pippa d enies. N eurologic: Dizziness d enies. F ainting d enies. H eadache?denies. * Medical History: * Surgical History: * Hospitalization/Major Diagno stic Procedure: * Family History: F ather: 81 yrs. M other: 30 yrs. 1 brother(s) , 1 sister(s) . 5 son(s) . . Father-Cardiac Mother-Sepsis, Denies mental health/substance abuse family history, Denies mental health/substance abuse family history, Denies mental health/substance abuse family history, Denies mental health/substance abuse family history. * Social History: T obacco Use: T obacco Use/Smoking P atient is a n onsmoker, A dditional Findings: Tobacco Non-User C urrent non-smoker, currently using no form of tobacco. D rugs/Alcohol: A lcohol Screen D id you have a drink containing alcohol in the past year? N o, P oints 0 , I nterpretation N egative. M iscellaneous: C affeine: yes, frequency:, 1-2 cups per day. Children: yes. Community involvements: yes. Exercise: yes, 3-4 times per week, walking 1 mile a day. Housing: owning. Living with: alone. Marital status: . Occupation: pt retired. Pets: none. * Medications: T akingAspir-81 81 MG Tablet Delayed Release 1 tablet Orally Once a day Atorvastatin Calcium 80 MG Tablet TAKE 1 TABLET BY MOUTH EVERY DAY FOR 90 DAYS Metoprolol Succinate ER 25 MG Tablet Extended Release 24 Hour 1 tablet Orally bid Ketoconazole 2 % Cream 1 application Externally twice a day Tylenol 325 MG Tablet 1 tablet as needed Orally every 4 hrs metFORMIN HCl 500 MG Tablet TAKE 2 TABLETS BY MOUTH TWICE A DAY WITH MEALS ORALLY ONCE A DAY 90 DAYS Taking Aspir-81 81 MG Tablet Delayed Release 1 tablet Orally Once a day Taking Atorvastatin Calcium 80 MG Tablet TAKE 1 TABLET BY MOUTH EVERY DAY FOR 90 DAYS Taking Metoprolol Succinate ER 25 MG Tablet Extended Release 24 Hour 1 tablet Orally bid Taking Ketoconazole 2 % Cream 1 application Externally twice a day Taking Tylenol 325 MG Tablet 1 tablet as needed Orally every 4 hrs Taking metFORMIN HCl 500 MG Tablet TAKE 2 TABLETS BY MOUTH TWICE A DAY WITH MEALS ORALLY ONCE A DAY 90 DAYS Not-Taking/PRNIbuprofen 800 MG Tablet 1 tablet Orally Three times a day Virtussin A/C 100-10 MG/5ML Solution 5 ml orally once a day Indomethacin 50 MG Capsule 1 capsule with food or milk Orally Three times a day Colchicine 0.6 MG Tablet 1 tablet Orally twice a day Medication List reviewed and reconciled with the patientNot-Taking/PRN Ibuprofen 800 MG Tablet 1 tablet Orally Three times a day Not-Taking/PRN Virtussin A/C 100-10 MG/5ML Solution 5 [...] Objective: * Vitals: H t: 69, Wt: 161, BMI:23.77, BP:120/64, Wt-k.03. weight is down 2 [pounds since 12-17-24. * P ast Orders: L ab:Comprehensive [place]. Panel Fast (Order Date - 02/01/2025) (Collection Date & Time - 02/01/2025 07:30 AM) Value Reference Range Sodium 144 135-145 - mmol/L Bilirubin Total 0.6 0.0-1.0 - mg/dL Aspartate Amino Transferase 38 H 5-37 - U/L Alanine Aminotransferase 40 0-40 - U/L Total Protein 7.2 6.5-8.0 - g/dL Albumin Level 4.1 3.5-5.0 - g/dL Alkaline Phosphatase 63 39-117 - U/L Potassium 4.3 3.3-5.1 - mmol/L Chloride 111 H 96-108 - mmol/L Carbon Dioxide 25 22-29 - mmol/L Anion Gap 12 12-20 - Blood Urea Nitrogen 22 H 9-16 - mg/dL Creatinine 1.00 0.5-1.4 - mg/dL Estimated Glomerular Filt Rate > 60 - Glucose Fasting 131 H 60-99 - mg/dL Calcium 9.3 8.4-10.2 - mg/dL L ab:Liver Panel (Order Date - 02/01/2025) (Collection Date & Time - 02/01/2025 07:30 AM) Value Reference Range Bilirubin Direct 0.2 0.0-0.5 - mg/dL L ab:Lipid Panel (Order Date - 02/01/2025) (Collection Date & Time - 02/01/2025 07:30 AM) Value Reference Range Triglycerides 125 <150 - mg/dL Cholesterol 103 <200 - mg/dL LDL Cholesterol Calculated 43 <100 - mg/dL HDL Cholesterol 35 L >40 - mg/dL L ab:PSA,Total (Free>4and<10) (Order Date - 02/01/2025) (Collection Date & Time - 02/01/2025 07:30 AM) Value Reference Range PSA,Total (Free>4and<10) 0.77 0.00-4.00 - ng/ mL L ab:Microalbumin, Random (Order Date - 02/01/2025) (Collection Date & Time - 02/01/2025 07:30 AM) Value Reference Range Creatinine Urine 118.69 - mg/dL Microalbumin Urine 11.0 - mg/L Microalbum Creatinine Ratio Ur 9.2 <30 - ug/ mg cr L ab:UA ClnCatch+Micro w/rflx Cult (Order Date - 02/01/2025) (Collection Date & Time - 02/01/2025 07:30 AM) Value Reference Range Color Urine Yellow - Appearance Urine Clear - PH 5.0 5.0-9.0 - Glucose Urine UA Negative Negative - mg/dL Urine Blood Negative Negative - Specific [place] - Urine 1.020 1.005-1.025 - Urine Protein Negative Neg-Trace - mg/dL Urine Ketones Negative Negative - mg/dL Nitrite Urine Negative Negative - Leukocyte Esterase Urine Negative Negative - RBC Urine 0-2 0-2 - /HPF WBC Urine 0-5 0-5 - /HPF Squamous Epithelial Cell Urine 0-2 0-2 - /HP F Bacteria Urine None Seen None Seen - Hyaline Casts Urine 0-2 0-2 - /LPF L ab:Hemoglobin A1c (Order Date - 12/17/2024) (Collection Date & Time - 12/17/2024) Value Reference Range Hemoglobin A1c 6.6 * Examination: G eneral Examination: GENERAL APPEARANCE: w ell developed, well nourished, in no acute distress. HEAD: n ormocephalic, atraumatic. EYES: p upils equal, round, reactive to light and accommodation, sclera non-icteric. EARS: n ormal. ORAL CAVITY: m ucosa moist. THROAT: c lear. NECK/THYROID: n laura supple, full range of motion, no cervical lymphadenopathy, no bruits. SKIN: w arm and dry, no suspicious lesions. HEART: r egular rate and rhythm, S1, S2 normal, no murmurs.? LUNGS: c lear to auscultation bilaterally. ABDOMEN: s oft, nontender, nondistended, bowel sounds present, normal, no organomegaly , no masses palpable. RECTAL EXAM: n ormal tone, no external hemorrhoids, no masses palpable, prostate normal, stool guaiac negative. MALE GENITOURINARY: c ircumcised, testes descended bilaterally. EXTREMITIES: n o clubbing, cyanosis, or edema. NEUROLOGIC: n onfocal, motor strength normal upper and lower extremities, sensory exam intact. PODIATRIC: n ormal pinprick, normal pulse, normal light touch. FOOT EXAM: . Assessment: * Assessment: 1. B bella cell carcinoma of multiple sites of head and neck - C44.41 (Primary) 2 . T ype 2 diabetes mellitus without complication, without long-term current use of insulin - E11.9 3 . H istory of coronary artery bypass graft - Z95.1 4 . History of melanoma - Z85.820 5 . L ymphocytosis - D72.820 6 . P ure hypercholesterolemia - E78.00 7 . C olon cancer screening - Z12.11? 8. D epression screening - Z13.31 Plan: * Treatment: 2. T ype 2 diabetes mellitus without complication, without long-term current use of insulin Continue metFORMIN HCl Tablet, 500 MG, TAKE 2 TABLETS BY MOUTH TWICE A DAY WITH MEALS ORALLY ONCE A DAY 90 DAYS. Notes: doing well, will continue current regiment 3. H istory of coronary artery bypass graft Notes: doing well post op 4. H istory of melanoma Notes: followed by derm 5. L ymphocytosis L AB: Complete Blood Count Auto Diff (Ordered for 04/17/2025) Notes: stable, will continue to monitor, future labs pending 6. P ure hypercholesterolemia Continue Atorvastatin Calcium Tablet, 80 MG, TAKE 1 TABLET BY MOUTH EVERY DAY FOR 90 DAYS. ? Notes: stable, will continue current regiment 7. C olon cancer screening L AB: Occult Blood, Stool, Guaiac (Collection Date & Time - 02/15/2025) N egative Value Reference Range O ccult Blood, Stool, Guaiac Neg Notes: guaiac negative??8.?Depression screening? Notes: negative screen?? * Procedure Codes: 8 2270 TEST FOR BLOOD, [id number] Complex e/m visit add on * Preventive Medicine: Diabetes Care Plan: P atient Lifestyle Goals N eeds to maintain diet control.?Treatment Goals A 1C< 7. B arriers N o specific barriers, doing well. E xpected Outcome u ltimately aiming to live a full and active life despite having diabetes. * Follow Up: 4 Months * * Sign off status: Completed true * Provider: Roger Ly MD Date: 0 02/15/2025 Generated for Balwinder vaughn/Krystyna/Marcoitting on: 1 12:55 PM EDT History and Physical Notes * HPI (History of Present Illness) Category Sub-Category Detail Notes Category Not es Symptom(s) patient is a 84 yo male here for visit with review of recent labs and follow up of chronic issues,, has not had the eye problem happen again. had covid when he was in the hospital. any time he eats nose runs. Depression Screening PHQ-9 Little inte rest or pleasure in doing things: Not at all Feeling down, depressed, or hopeless: No t at all Trouble falling or staying asleep, or sl eeping too much: Not at all Feeling tired or having little energy: N ot at all Poor appetite or overeating: Not at all Feeling bad about yourself o r that you are a failure, or have let yourself or your family down: Not at all Trouble concentrating on thi ngs, such as reading the newspaper or watching television: Not at all Moving or speaking so slowly that other people could have noticed; or the opposite, being so fidgety or restless that you have been moving around a lot more than usual: Not at all Thoughts that you would be b foster off or of hurting yourself in some way: Not at all Total Score: 0 Interpretation and Intervention Depression Allyn alfonso Findings: Negative Follow-Up for Depression: : review of PH Q-9 found negative result, no follow-up needed SDOH Questions SDOH Questions In the past year have you been worried about losing housing?: No In the past year have you or any family members you live with been unable to get any of the following when it was really needed? Check all that apply:: None Fall Risk History Have you had any falls with injury i n the past year?: No Have you had two or more falls in the year?: No Communication Needs Communication Needs Does the patient have a hearing impairment: No Does the patient have a vision impairmen t?: Yes If yes, what is the vision impairment?: Glasses Does the patient have a cognition impair ment?: No Examination Category Sub-Category Detail Notes Category Not es General Examination GENERAL APPEARANCE: well dev eloped, well nourished, in no acute distress HEAD: normocephalic, atrau matic EYES: pupils equal, round, reactive to light and accommodation, sclera non-icteric EARS: normal THROAT: clear NECK/THYROID: neck supple, full ra nge of motion, no cervical lymphadenopathy, no bruits HEART: regular rate and rhy thm, S1, S2 normal, no murmurs LUNGS: clear to auscultatio n bilaterally ABDOMEN: soft, nontender, non distended, bowel sounds present, normal, no organomegaly , no masses palpable NEUROLOGIC: nonfocal, motor stre ngth normal upper and lower extremities, sensory exam intact SKIN: warm and dry, no hanna picious lesions EXTREMITIES: no clubbing, cyanosi s, or edema MALE GENITOURINARY: circumcised, testes descended bilaterally RECTAL EXAM: normal tone, no exte rnal hemorrhoids, no masses palpable, prostate normal, stool guaiac negative ORAL CAVITY: mucosa moist FOOT EXAM: Date: 02/15/2025 normal pinprick . normal pulse. normal light touch. PODIATRIC: normal pinprick, nor mal pulse, normal light touch
--- OUTSIDE RECORDS SUMMARY | 2025-03-04 04:15 | XMS_ITS ---
Author Organization Edi Ly MD Address [address] [place] [id number] Care Team Providers Care Textile Supervisor Name Role Phone Malachi Edi Primary Care Provider REASON FOR VISIT repeat 1 month dx lymphocytosis Encounters Encounter Location Date Provider Diagnosis Edi Ly MD [address] [facility] [address] [place] [phone] 03/04/2025 Edi Ly Plan Of Treatment Next Appt Details Provider Name:Edi noguera, 06/21/2025 10:00:00 AM, [address] [place] [address], Suite [facility], [place], [place], [phone], Provider Name:Edi noguera, 08/20/2025 07:15:00 AM, [address] [place] [address], Suite [facility], [place], [place], [phone], Provider Name:Edi noguera, 02/08/2026 07:00:00 AM, [address], [address], [place], [phone], Provider Name:Edi Velásquez ier, 02/15/2026 08:30:00 AM, [address] [facility] [address], [address], [place], [phone], Progress Notes * Gómez PASCUALDOB:[birth year] (84 yo M)Acc No.[id number]:03/04/2025 Progress Note Patient: Gómez BERNAL Provider: Roger Ly MD :1940 A ge:84 Y S ex:Male Date:03/04/2025 Address:[address] [place] [address] [facility] Subjective: * Chief Complaints: * 1 . Repeat 1 month dx lymphocytosis. * Medical History: Objective: * Vitals: Assessment: Plan: * Treatment: * * The named appointment provid er may or may not be the originator of this progress note, and it is not deemed complete until electronically signed by the appointment provider. Sign off status: Pending * Provider: Roger Ly MD Date: 0 03/04/2025 Generated for Balwinder vaughn/Krystyna/Marcoitting on: 12:55 PM EDT
--- OUTSIDE RECORDS SUMMARY | 2025-04-20 03:30 | XMS_ITS ---
Author Organization Edi Ly MD Address [address] [place], [place] [id number] Care Team Providers Care Furnishings Conservator Name Role Phone Edi Ly Primary Care Provider [phone] Results Component Value Reference Range Notes Complete Blood Count Auto Di ff Reviewed date:04/20/2025 12:42:53 PM Interpretation: Performing Lab:[facility], [place], [address] [place] [phone] Notes/Report: White Blood Count 6.1 4.8-10.8 X10*3/uL Red Blood Count 4.04 4.60-5.80 X10*6/uL Hemoglobin 12.9 14.0-18.0 g/dl Hematocrit 38.8 42.0-52.0 % Mean Corpuscular Volume 96.0 80.0-98.0 fL Mean Corpuscular Hemoglobin 31.9 27.0-33.0 pg Mean Corpuscular HGB Conc 33.2 31.0-36.0 g/dl Red Cell Distribution Width 12.8 11.0-16.0 % Platelet Count 194 160-400 X10*3/uL Mean Platelet Volume 11.9 9.4-12.4 fL Neutrophils Percent Auto 39.3 45-73 % Imm Gran Pct Auto 0.2 0.0-0.4 % Lymphocytes Percent Auto 47.0 20-40 % Monocytes Percent Auto 11.1 2-11 % Eosinophils Percent Auto 2.1 0-4 % Basophils Percent Auto 0.3 0-2 % NRBC Pct Auto 0.0 0.0-0.2 /100WBC Neutrophils Absolute Auto 2.4 2.0-8.3 x10*3/u L Imm Gran Abs Auto 0.01 0.00-0.03 X10*3/uL Lymphocytes Absolute Auto 2.9 1.2-4.9 X10*3/u L Monocytes Absolute Auto 0.7 0.1-1.2 X10*3/uL Eosinophils Absolute Auto 0.1 0.0-0.4 X10*3/u L Basophils Absolute Auto 0.0 0.0-0.2 X10*3/uL NRBC Abs Auto 0.000 0.0-0.012 X10*3/uL REASON FOR VISIT CBC AUTO DIFF Immunizations Vaccine Route Administration Date Status Comme nts Influenza High Dose IM Intramuscular 04/20/2025 Administer ed Encounters Encounter Location Date Provider Diagnosis Edi Ly MD [address] [place] [address] [place] [id number] 04/20/2025 Edi Ly Lymphocytosis D72.82 0 and Encounter for administration of vaccine Z23 Assessments Encounter Date Diagnosis (ICD Code) Assessment Notes Treatment Notes Treatment Clinical Notes Section Notes 04/20/2025 Lymphocytosis (ICD-10 - D72.820) 04/20/2025 Encounter for administration of vaccine (ICD-10 - Z23) Plan Of Treatment Next Appt Details Provider Name:Edi noguera, 06/21/2025 10:00:00 AM, [address] [place] [address], [address] [place] [address], [id number], Provider Name:Edi noguera, 08/20/2025 07:15:00 AM, [address] [place] [address], [address], [phone], Provider Name:Edi Velásquez ier, 02/08/2026 07:00:00 AM, [address], [address], [place], [place], [phone], Provider Name:Edi Velásquez ier, 02/15/2026 08:30:00 AM, [address], [address], [place], [place], [phone], Progress Notes * Gómez PASCUALDOB:[birth year] (84 yo M)Acc No.[id number]:04/20/2025 Progress Note Patient: Gómez BERNAL Provider: Roger Ly MD :1940 A ge:84 Y S ex:Male Date:04/20/2025 Address:[address] [place] [address] Subjective: * Chief Complaints: * 1 . CBC AUTO DIFF. * Medical History: Objective: * Vitals: Assessment: * Assessment: 1. E ncounter for administration of vaccine - Z23 (Primary) 2 . L ymphocytosis - D72.820 Plan: * Treatment: * Immunizations: Influenza High Dose : 0.5 mL (Dose No:1) (Route: Intramuscular) given by Selma Zamarripa , Office Staff on Left Deltoid * Procedure Codes: 3 6415 VENIPUNCT, ROUTINE*, 81347 FLU VACC PRSV FREE INC ANTIG, G0008 ADMN FLU VAC NO FEE SCHED SAME DAY * * The named appointment provid er may or may not be the originator of this progress note, and it is not deemed complete until electronically signed by the appointment provider. Sign off status: Pending * Provider: Roger Ly MD Date: Generated for Balwinder vaughn/Krystyna/Marcoitting on: 12:54 PM EDT
[2025-04-20 10:53] LABS: MANUAL DIFF FLAG NO
[2025-04-20 10:58] LABS: Hematocrit 38.8 % (42.0-52.0); Hemoglobin 12.9 g/dl (14.0-18.0); Imm Gran Abs Auto 0.01 X10*3/uL (0.00-0.03); Imm Gran Pct Auto 0.2 % (0.0-0.4); Lymphocytes Absolute Auto 2.9 X10*3/uL (1.2-4.9); Mean Corpuscular HGB Conc 33.2 g/dl (31.0-36.0); Mean Corpuscular Hemoglobin 31.9 pg (27.0-33.0); Mean Corpuscular Volume 96.0 fL (80.0-98.0); NRBC Abs Auto 0.000 X10*3/uL (0.0-0.012); NRBC Pct Auto 0.0 /100WBC (0.0-0.2); Platelet Count 194 X10*3/uL (160-400); Red Blood Count 4.04 X10*6/uL (4.60-5.80); White Blood Count 6.1 X10*3/uL (4.8-10.8)
--- OUTSIDE RECORDS SUMMARY | 2025-04-20 12:54 | XMS_ITS | Patient Health Record ---
Author Organization [facility] Julio jeremy Paul Address [address] [facility] [place] [address] Care Team Providers Care Provider Network Manager Name Role Phone Malachi DELANEY, Edi Primary Care Provider Regino Maciel Unavailable [phone] Allergies No Known Allergies Reason For Referral [...] W/U Status Risk Notes Problem Ingrowing nail (282120216) Ingrowing nail (L60.0) Active confirmed Problem Chronic ulcer of foot (663182831) Non-pressure chronic ulcer of other part of left foot with fat layer exposed (L97.522) Active confirmed Problem Polyneuropathy due to type 2 diabetes mellitus (189348891) Type 2 diabetes mellitus with diabetic polyneuropathy (E11.42) Active confirmed Problem Type II diabetes mellitus without complication (520495091) Type 2 diabetes mellitus without complications (E11.9) Active confirmed Plan Of Treatment Pending Test Test Name Order Date [id number]-Ufokueba Plate 05/08/2018 51814-Fnokqldc Plate 05/20/2018 25790-Fidrainf Plate 03/27/2017 95750-Dbzqzznz Plate 11/07/2015 84173-XTB 08/26/2018 95207- Debride <25 sq cm 09/12/2018 01798- Debride <25 sq cm 03/27/2017 16943-WJMUEPV SKIN/TISSUE 11/04/2023 03531 I&D ABSCESS- SIMPLE,SINGLE 017 Insurance Providers Payer Name Payer Address Payer Phone Subscriber Number Group Number Insured Name Patient Relationship to Insured Coverage Start Date Coverage End Date Medicare National Govt [employer] [address] [facility] [place] [address] [id number] Gómez Pascual Self - patient is the insured [employer] [address] [place] [address] [phone] [id number] Gómez Pascual Self - patient is the insured Medical (General) History Medical History History ICD Code Gout skin cancer Diabetes CAD covid-19 Measles Mumps Cataracts Surgical History Surgery Date(Month/Year) skin cancer surgery
--- OUTSIDE RECORDS SUMMARY | 2025-04-20 12:55 | XMS_ITS | Patient Health Record ---
Author Organization [facility] Address [address] [place] [address] Care Team Providers Care Opinion Polls Survey Worker Name Role Phone Malachi DELANEY, Edi Primary Care Provider Jordan Gonzalez Unavailable [phone] Reason For Referral No Information Medications Medication SIG (Take, Route, Fr equency, Duration) Notes Start Date End Date Status MoviPrep 100 GM as directed Orally o nce; Duration: 1 dose 05/27/2012 Active Problems Problem Type SNOMED Code ICD Code Onset Dates Problem Status W/U Status Risk Notes Problem Blood in stool (313696462) Blood in stool (578.1) Active confirmed Problem Colon cancer screening (282402941) Colon cancer screening (V76.51) Active confirmed Plan Of Treatment Future Test Test Name Order Date COLONOSCOPY 05/27/2012 Insurance Providers Payer Name Payer Address Payer Phone Subscriber Number Group Number Insured Name Patient Relationship to Insured Coverage Start Date Coverage End Date [facility] [address] [place] [phone] [id number] NABIL EVIE Self - patient is the insured Medical (General) History Medical History History ICD Code Colonoscopy 09/15/2001-neg. except hemorr hoids Vertigo Denies MT,DM,CVA,Lung disease,renal dise ase Surgical History Surgery Date(Month/Year) skin cancer surgery pilonidal cyst
--- OUTSIDE RECORDS SUMMARY | 2025-04-20 12:55 | XMS_ITS | Clinical Summary ---
Author Organization [facility] Address [address] [address] Phone Care Team Providers Care Log Rider Name Role Phone Edi Ly MD Primary [...] VACCINE (1 - 1-dose 75+ series) 2015 INFLUENZA VACCINE (#1) 2025 , 04/14/2019, 04/17/2018, Additional history exists COVID-19 VACCINE ( season) 2025 08/28/2020, 08/08/2020 PNEUMOCOCCAL VACCINES (50+ years) Completed [...] file Insurance MEDICARE PART A & B [employer] MEDEX SUPPLEMENT MEDICARE PART A & B [employer] MEDEX SUPPLEMENT MEDICARE PART A & B [employer] MEDEX SUPPLEMENT MEDICARE PART A & B [employer] SUPPLEMENT MEDICARE PART A & B [employer] - [employer]office MEDEX SUPPLEMENT MEDICARE PART A & B [employer] MEDEX SUPPLEMENT [facility] [place] Advance Directives For more information, please contact: [phone] (9AM - 5PM [facility], Saturday-Saturday) Documents on File Type Date Recorded Patient Scrap Baller Expl anation Advance Directive - Non Epic R 11/19/2012 12:00 AM Advance Directive - Non Epic R 11/19/2012 12:00 AM Care Teams Log Rider Relationship Specialty Start Date End Date Edi Ly MD [address] [place] [address] [place] [address] PCP - General 11/11/14 Additional Source Comments The information contained in this document represents components of the legal health record. It is not the complete legal health record.[facility]
--- OUTSIDE RECORDS SUMMARY | 2025-04-20 12:56 | XMS_ITS | Patient Health Record ---
Author Organization Edi Ly MD Address [address] [place], [place] [id number] Care Team Providers Care Electric Trucker Name Role Phone Edi Ly Primary Care Provider Allergies Allergen (clinical drug ingredient) Drug/Non Drug Allergy documented on EMR Reaction Allergy Type Onset Date Status sulfamethoxazole / trimethoprim Bactrim DS most likely rash from this one Drug Allergy Active Results Component Value Reference Range Notes Hemoglobin A1c Reviewed date:08/27/2024 09:05:08 AM Interpretation: Performing Lab: Notes/Report: Hemoglobin A1c 6.7 Hemoglobin A1c Reviewed date:12/17/2024 11:31:46 AM Interpretation: Performing Lab: Notes/Report: Hemoglobin A1c 6.6 Potassium Reviewed date:10/12/2024 05:26:47 PM Interpretation: Performing Lab:[facility], [address] [place] [phone] Notes/Report: Potassium 4.3 3.3-5.1 mmol/L Complete Blood Count Auto Di ff Reviewed date:02/15/2025 12:11:26 PM Interpretation:03-04-2025 Performing Lab:[facility], [address] [place] [phone] Notes/Report: White Blood Count 7.2 4.8-10.8 X10*3/uL [...] NRBC Abs Auto 0.000 0.0-0.012 X10*3/uL Comprehensive [place]. Panel Fa st Reviewed date:02/01/2025 05:38:01 PM Interpretation: Performing Lab:[facility], [address] [place] [phone] Notes/Report: Sodium 144 135-145 mmol/L Potassium 4.3 [...] Panel Reviewed date:02/01/2025 05:34:04 PM Interpretation: Performing Lab:[address] [phone] Notes/Report: Bilirubin Direct 0.2 0.0-0.5 mg/dL Lipid Panel Reviewed date:02/01/2025 12:31:05 PM Interpretation: Performing Lab:[address] [phone] Notes/Report: Triglycerides 125 <150 mg/dL Desirable Triglyceride: [...] (Free>4and<10) Reviewed date:02/01/2025 12:29:58 PM Interpretation: Performing Lab:[address] [phone] Notes/Report: PSA,Total (Free>4and<10) 0.77 0.00-4.00 ng/mL A [...] Random Reviewed date:02/01/2025 12:46:02 PM Interpretation: Performing Lab:[facility], [address] [place] [phone] Notes/Report: Creatinine Urine 118.69 Microalbumin Urine 11.0 Microalbum/Creatinine Ratio Ur 9.2 <30 ug/mg cr Albumin/Creatinine Ratio Reference Ranges: Normal: < 30 ug/mg creatinine Microalbuminuria: 30 - 300 ug/mg creatinine Clinical Albuminuria: > 300 ug/mg creatinine UA ClnCatch+Micro w/rflx Cul t Reviewed date:02/02/2025 04:25:14 PM Interpretation: Performing Lab:[address] [phone] Notes/Report: [id number] Urine, Clean Catch Color Urine Yellow Appearance Urine Clear PH 5.0 5.0-9.0 Glucose Urine UA Negative Negative mg/dL Urine Blood Negative Negative Specific Gifford - Urine 1.020 1.005-1.025 Urine Protein Negative Neg-Trace mg/dL Urine Ketones Negative Negative mg/dL Nitrite Urine Negative Negative Leukocyte Esterase Urine Negative Negative RBC Urine 0-2 0-2 /HPF WBC Urine 0-5 0-5 /HPF Squamous Epithelial Cell Urine 0-2 0-2 /HPF Bacteria Urine None Seen None Seen Hyaline Casts Urine 0-2 0-2 /LPF Complete Blood Count Auto Di ff Reviewed date:04/20/2025 12:42:53 PM Interpretation: Performing Lab:[facility], [address] [place] [phone] Notes/Report: White Blood Count 6.1 4.8-10.8 X10*3/uL [...] X10*3/uL NRBC Abs Auto 0.000 0.0-0.012 X10*3/uL Glucose, finger stick Reviewed date:08/27/2024 08:58:03 AM Interpretation: Performing Lab: Notes/Report: Value 136 Glucose, finger stick Reviewed date:12/17/2024 11:25:28 AM Interpretation: Performing Lab: Notes/Report: Value 162 Occult Blood, Stool, Guaiac Reviewed date:02/15/2025 11:57:00 AM Interpretation:Negative Performing Lab: Notes/Report: Negative Occult Blood, Stool, Guaiac Neg XR KUB Reviewed date:07/02/2024 10:42:02 AM Interpretation: Performing Lab: Notes/Report: [address] [address] XRay Report Signed Patient: Gómez Pascual MR#: [id number] : 1940 Acct:[id number] Age/Sex: 83 / M ADM Date: 07/01/24 Loc: .ED Attending Dr: Ordering Physician: Juan M Cooley MD Date of Service: 07/01/24 Procedure(s): XR KUB Accession Number(s): [id number] cc: Edi Ly MD; Juan M Cooley [...] by: Tevin Hayden MD 07/01/2024 02:[address] [facility] Dictated By: Tevin Hayden MD Signed By: <Electronically signed by Tevin Hayden MD in OV> 07/01/24 0259 DD/ 0238 TD/TT: 07/01/24 0247 Pastry Decorator: [address] [address] XRay Report Signed Patient: Gómez Pascual MR#: [id number] : 1940 Acct:[id number] Age/Sex: 83 / M ADM Date: 07/01/24 Loc: .ED Attending Dr: Ordering Physician: Juan M Cooley MD Date of Service: 07/01/24 Procedure(s): XR KUB Accession Number(s): [id number] cc: Edi Ly MD; Juan M Cooley [...] are unremarkable. XR/XR KUB IMPRESSION: 1. Nonobstructive chata wel gas pattern. 2. Retained stool throughout the colon including the rectum with rectal expansion up to 6.7 cm. Electronically susan d by: Tevin Hayden MD 07/01/2024 02:[address] [facility] Dictated By: Tevin Hayden MD Signed By: <Electronically signed by Tevin Hayden MD in OV> 07/01/24 0259 DD/ 0238 TD/TT: 07/01/24 0247 Pastry Decorator: Mellissa Valenzuela Reviewed date:08/21/2024 12:32:15 PM Interpretation: Performing Lab:[facility], [address] [place] [phone] Notes/Report: Mellissa Valenzuela See Note Specimen held untested for 24 hours; Call to request Chemistry testing. Complete Blood Count no Diff Reviewed date:09/11/2024 12:30:30 PM Interpretation: Performing Lab:[facility], [address] [place] [phone] Notes/Report: White Blood Count 8.4 4.8-10.8 X10*3/uL [...] INR Reviewed date:09/11/2024 11:36:38 AM Interpretation: Performing Lab:[facility], [address] [place] [phone] Notes/Report: Prothrombin Time 11.7 10.9-12.4 [employer] [...] Panel Reviewed date:09/11/2024 11:40:16 AM Interpretation: Performing Lab:[facility], [address] [place] [phone] Notes/Report: Sodium 143 135-145 mmol/L Potassium 5.3 3.3-5.1 mmol/L Chloride 109 96-108 mmol/L Carbon Dioxide 28 22-29 mmol/L Anion Gap 11 12-20 Blood Urea Nitrogen 25 9-16 mg/dL Creatinine 1.25 0.5-1.4 mg/dL Estimated Glomerular Filt Rate 55 Chronic Kidney Disease: Estimated GFR < 60 mL/min/1.73m2 Severe Kidney Disease: Estimated GFR < 15 mL/min/1.73m2 Glucose Random 162 60-115 mg/dL Calcium 9.7 8.4-10.2 mg/dL Hold Lav - Possible Hematolo gy Reviewed date:02/01/2025 12:39:04 PM Interpretation: Performing Lab:[facility], [address] [place] [phone] Notes/Report: Hold Lav - Possible Hematology SEE NOTE Specimen will be held untested for 8 hours. Call Hematology if testing is desired. Reason For Referral No Information Medications Medication SIG (Take, Route, Frequency, Duration) Notes Start Date End Date Status Metoprolol Succinate ER 25 MG 1 tablet Orally bid for 30 days 09/08/2024 Active Ketoconazole 2 % 1 application Externally twice a day for 14 days 11/17/2024 Active Colchicine 0.6 MG 1 tablet Orally twic e a day for 30 day(s) 12/14/2016 Not-Taking metFORMIN HCl 500 MG TAKE 2 TABLETS BY M OUTH TWICE A DAY WITH MEALS ORALLY ONCE A DAY 90 DAYS Active Indomethacin 50 MG 1 capsule with food or milk Orally Three times a day for 10 days 01/24/2017 Not-Taking Aspir-81 81 MG 1 tablet Orally Once a day for 30 day(s) 06/13/2017 Active Tylenol 325 MG 1 tablet as needed Orally every 4 hrs Active Atorvastatin Calcium 80 MG TAKE 1 TABLET BY MOUTH EVERY DAY FOR 90 DAYS Active Virtussin A/C 100-10 MG/5ML 5 ml orally once a day for 90 days 02/01/2022 Not-Taking Ibuprofen 800 MG 1 tablet Orally Thre e times a day for 30 day(s) 05/09/2015 Not-Taking Immunizations Vaccine Route Administration Date Status Comme nts Flu Vaccine IM Intramuscular 04/02/2011 Administered Flu Vaccine IM Intramuscular 04/22/2012 Administered Shingles Unknown 06/20/2012 Administered Flu Vaccine IM Intramuscular 04/21/2013 Administered PPSV23 (Pnemovax) IM Intramuscular 10/16/2013 Administered Fluarix Quadrivalent IM Intramuscular 04/13/2014 Administe red Prevnar 13 IM Intramuscular 06/22/2014 Administered Fluarix Quadrivalent IM Intramuscular 04/22/2015 Administadriel red Fluarix Quadrivalent IM Intramuscular 05/28/2016 Adminjun red Prevnar 13 IM Intramuscular 05/28/2016 Administered Fluarix Quadrivalent IM Intramuscular 04/16/2017 Administadriel red Influenza High Dose IM Intramuscular 04/17/2018 [...] High Dose IM Intramuscular 03/23/2024 Administer ed Influenza High Dose IM Intramuscular 04/20/2025 Administer ed TDaP Unknown 07/18/2020 Refused Social [...] Status W/U Status Risk Notes Problem Lymphocytosis (55317784) Lymphocytosis (D72.820) Active confirmed Problem 97411711 Hypercalcemia (E83.52) Active confirmed Problem 621278277 BPH (benign pros tatic hyperplasia) (N40.0) Active confirmed Problem 66753305 Lymphadenopathy (R59.1) Active confirmed Problem 877573270 History of melan kell (Z85.820) Active confirmed Problem History of coronary artery bypass grafting (719814500) History of coronary artery bypass graft (Z95.1) Active confirmed Problem 186301195 Vasculogenic ere ctile dysfunction, unspecified vasculogenic erectile dysfunction type (N52.9) Active confirmed Problem 44773640 Acute idiopathic gout 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) Active confirmed Problem 79244155 Sciatica of righ t side (M54.31) Active confirmed Problem 121879361 Basal cell carci noma of multiple sites of head and neck (C44.41) Active confirmed Problem Pure hypercholesterolemia (680047627) Pure hypercholesterolemia (E78.00) Active confirmed Problem 860763115 Type 2 diabetes mellitus without complication, without long-term current use of insulin (E11.9) Active confirmed Problem Multiple premature ventricular complexes (763209672) 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 Vital Signs Blood pressure diastolic 64 mm Hg 02/15/2025 evette ght is down 2 [pounds since 12-17-24 Height 69 in 02/15/2025 weight is down 2 [pounds since 12-17-24 Blood pressure systolic 120 mm Hg 02/15/2025 weig ht is down 2 [pounds since 12-17-24 Weight 161 lbs 02/15/2025 weight is down 2 [pounds since 12-17-24 BMI 23.77 kg/m2 02/15/2025 weight is down 2 [pounds since 12-17-24 Procedures Procedure Date Ordered Date Performed Result Body Sit e CARDIOVASCULAR STRESS TEST 08/27/2024 N/A Encounters Encounter Location Date Provider Diagnosis Edi Ly MD [address] [facility] [address] [id number] 08/21/2024 Edi Ly Pure hypercholestero lemia E78.00 Edi Ly MD [address] [place] [address] [id number] 10/12/2024 Edi Ly Hyperkalemia E87.5 Edi Ly MD [address] [place] [id number] 02/01/2025 Edi Ly Type 2 diabetes brunilda itus without complication, without long-term current use of insulin E11.9 ; Pure hypercholesterolemia E78.00 and Hypercalcemia E83.52 Edi Ly MD [address] [place] [address] [address] [id number] 04/20/2025 Edi Ly Lymphocytosis D72.82 0 and Encounter for administration of vaccine Z23 Edi Ly MD [address] [id number] 08/27/2024 Edi Ly Type 2 diabetes brunilda itus without complication, without long-term current use of insulin E11.9 ; Shortness of breath on exertion R06.02 and Pure hypercholesterolemia E78.00 Edi Ly MD [address] [place] [address] [address] [id number] 09/08/2024 Edi Ly Abnormal ECG R94.31 and Frequent PVCs I49.3 Edi Ly MD [address] [place] [address] [address] [id number] 10/12/2024 Edi Ly Type 2 diabetes brunilda itus without complication, without long-term current use of insulin E11.9 ; History of coronary artery bypass graft Z95.1 and COVID-19 U07.1 Edi Ly MD [address] [facility] [address] [id number] 11/17/2024 Edi Ly Type 2 diabetes brunilda itus without complication, without long-term current use of insulin E11.9 ; Fungal infection B49 and History of coronary artery bypass graft Z95.1 Edi Ly MD [address] [place] [address] [address] [id number] 12/17/2024 Edi Ly Type 2 diabetes brunilda itus without complication, without long-term current use of insulin E11.9 and History of coronary artery bypass graft Z95.1 Edi Ly MD [address] [place] [id number] 02/15/2025 Edi Ly 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 and neck C44.41 ; Type 2 diabetes mellitus without complication, without long-term current use of insulin E11.9 ; History of coronary artery bypass graft Z95.1 ; History of melanoma Z85.820 ; Lymphocytosis D72.820 ; Pure hypercholesterolemia E78.00 ; Colon cancer screening Z12.11 and Depression screening Z13.31 Edi Ly MD [address] [place] [id number] 07/02/2024 Edi Ly MD [address] [place] [id number] 08/27/2024 Edi Ly MD [address] [place] [id number] 10/01/2024 Edi Ly MD [address] [place] [id number] 02/11/2025 Edi Ly Assessments Encounter Date Diagnosis (ICD Code) Assessment Notes Treatment Notes Treatment Clinical Notes Section Notes 08/21/2024 Pure hypercholesterolemia (ICD-10 - E78.00) 10/12/2024 Hyperkalemia (ICD-10 - E87.5) 02/01/2025 Type 2 diabetes mellitus without complication, without long-term current use of insulin (ICD-10 - E11.9) 04/20/2025 Lymphocytosis (ICD-1 0 - D72.820) 04/20/2025 Encounter for administration of vaccine (ICD-10 - Z23) 08/27/2024 Type 2 diabetes mellitus without complication, without long-term current use of insulin (ICD-10 - E11.9) doing well with good a1c, will continue current regiment 08/27/2024 Shortness of breath on exertion (ICD-10 - R06.02) THE ORDER HAS BEEN FAXED TO [facility] CENTRALIZED AND PATENT IS AWARE, pending additional [...] - Z95.1) doing well after surgery do 11/17/2024 Type 2 diabetes mellitus without complication, without long-term current use of insulin (ICD-10 - E11.9) sugars still doing well, will continue current regiment 11/17/2024 Fungal infection (ICD-10 - B49) patient verblized understanding of medications and directions for use 12/17/2024 Type 2 diabetes mellitus without complication, without long-term current use of insulin (ICD-10 - E11.9) 02/15/2025 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 and neck (ICD-10 - C44.41) followed every 3 months by derm 02/15/2025 Type 2 diabetes mellitus without complication, without long-term current use of insulin (ICD-10 - E11.9) doing well, will continue current regiment 02/01/2025 Pure hypercholesterolemia (ICD-10 - E78.00) 08/27/2024 Pure hypercholesterolemia (ICD-10 - E78.00) stable, will continue current regiment 10/12/2024 COVID-19 (ICD-10 - U07.1) had covid in hospital had 11/17/2024 History of coronary artery bypass graft (ICD-10 - Z95.1) no pains 12/17/2024 History of coronary artery bypass graft (ICD-10 - Z95.1) doing well with no chest pain. is going to cardiac rehab. wounds are all healed.. have explained that they don't want him mowing the lawn because they are waiting for the sternum to be stronger 02/15/2025 History of coronary artery bypass graft (ICD-10 - Z95.1) doing well post op 02/01/2025 Hypercalcemia (ICD-1 0 - E83.52) 02/15/2025 History of melanoma (ICD-10 - Z85.820) [...] Test Test Name Order Date Electrocardiogram (EKG) 12/14/2016 Electrocardiogram (EKG) 12/26/2017 Electrocardiogram (EKG) 12/02/2015 CARDIOVASCULAR STRESS TEST 08/27/2024 Liver Panel 08/21/2024 Calcium 02/01/2025 Lipid Panel with Reflex 08/21/2024 Next Appt Details Provider Name:Edi noguera, 06/21/2025 10:00:00 AM, [address] [place] [address], [address], [phone], Provider Name:Edi ortizr, 08/20/2025 07:15:00 AM, [address] [place] [address], [address], [phone], Provider Name:Edi ortizr, 02/08/2026 07:00:00 AM, [address] [place] [address], [address], [phone], Provider Name:Edi ortizr, 02/15/2026 08:30:00 AM, [address] [place] [address], [phone], Insurance Providers Payer Name Payer Address Payer Phone Subscriber Number Group Number Insured Name Patient Relationship to Insured Coverage Start Date Coverage End Date MEDICARE NHIC [employer] [place] [address] [id number] Gómez Pascual Self - patient is the insured [employer] OF [facility] [address] [place] [address] [id number] Gómez Pascual Self - patient is the insured 8 Medical (General) History Medical History History ICD Code colonoscopy 2001.due 201107/23/2012 - Colonoscopy - no further jeovany ting needed per Dr. Lakhani BPH (benign prostatic hyperplasia)
== END 2025-04-20 07:31 | disposition home or self-care (01) ==
LOC: HO.LNP 07:30
PROVIDERS: Visit Provider Internal Medicine
DX: D72.820 Lymphocytosis (symptomatic) (principal)
CPT/HCPCS: 85025

== ENCOUNTER 2025-06-21 10:36 | Outpatient (REF) | payer MEDICARE, SELFPAY ==
--- NOTE | ~2025-06-21 | XR_ITS ---
EXAMINATION: XR CHEST CLINICAL INFORMATION: PERSISTENT COUGH COMPARISON: None available. TECHNIQUE: 2 views of the chest were obtained. FINDINGS: Prior median sternotomy with sternal hardware appearing intact. The cardiac, hilar, and mediastinal contours are normal. Aortic mural calcification. Lungs demonstrate several pulmonary nodules noted in the right lung, largest in the right lower lung measuring 1.7 cm. These are poorly seen on the lateral. Lungs otherwise appear clear. There is no pneumothorax or pleural effusion. There is no focal osseous or soft tissue abnormality. XR/XR chest 2V IMPRESSION: 1. Several pulmonary nodules in the right lung measuring up to 1.[address] given these findings. 2. Prior sternotomy. This report was urgently faxed to Dr. Ly 06/21/2025 approximately 11:40 AM. Electronically signed by: Diomedes Hernandes MD 06/21/2025 11:40 AM [facility]
== END 2025-06-21 10:37 | disposition home or self-care (01) ==
LOC: HO.XRAY 10:36
PROVIDERS: PCP Internal Medicine; Visit Provider Internal Medicine
DX: R05.3 Chronic cough (principal)
CPT/HCPCS: 71046

== ENCOUNTER → 2025-06-21 10:44 | Outpatient (BNV) | payer MEDICARE, SELFPAY | PROVIDERS: PCP Internal Medicine; Visit Provider Radiology Diagnostic Radiology | DX: R91.8 Other nonspecific abnormal finding of lung field (principal) | CPT/HCPCS: 71046 ==